=== PATIENT | male | born 1950 | race Caucasian/White ===

== ENCOUNTER → 2020-07-17 08:49 | Outpatient (BNVA) | payer MEDICARE, SELFPAY | PROVIDERS: PCP Internal Medicine; Visit Provider Internal Medicine Pulmonary Disease | DX: D86.9 Sarcoidosis, unspecified (principal); G47.33 Obstructive sleep apnea (adult) (pediatric); Z99.89 Dependence on other enabling machines and devices | CPT/HCPCS: 99212 ==

== ENCOUNTER 2020-08-30 08:59 | Outpatient (REF) | payer MEDICARE, SELFPAY ==
[2020-08-30 11:34] LABS: Hematocrit 46.2 % (42-52); Hemoglobin 15.9 g/dl (14.0-18.0); Mean Corpuscular HGB Conc 34.4 g/dl (31.0-36.0); Mean Corpuscular Hemoglobin 31.5 pg (27.0-33.0); Mean Corpuscular Volume 91.5 fL (80-98); Mean Platelet Volume 12.2 fL (9.4-12.4); Platelet Count 192 X10*3/uL (160-400); Red Blood Count 5.05 X10*6/uL (4.60-5.80); Red Cell Distribution Width 12.3 % (11.0-16.0); White Blood Count 10.1 X10*3/uL (4.8-10.8)
[2020-08-30 12:02] LABS: Alanine Aminotransferase 47 U/L (0-40); Albumin Level 4.2 g/dL (3.5-5.0); Alkaline Phosphatase 117 U/L (39-117); Anion Gap 15 (12-20); Aspartate Amino Transferase 46 U/L (5-37); Bilirubin Total 0.7 mg/dL (0.0-1.0); Blood Urea Nitrogen 19 mg/dL (9-16); Calcium 9.1 mg/dL (8.4-10.2); Carbon Dioxide 31 mmol/L (22-29); Chloride 99 mmol/L (96-108); Cholesterol 164 mg/dL; Estimated Glomerular Filt Rate 57; Glucose Fasting 117 mg/dL (60-99); HDL Cholesterol 24 mg/dL; LDL Cholesterol Calculated 72 mg/dl; Sodium 142 mmol/L (135-145); Total Protein 7.5 g/dL (6.5-8.0); Triglycerides 341 mg/dL
== END 2020-08-30 09:00 | disposition home or self-care (01) ==
LOC: HO.HMGCLDS 08:59
PROVIDERS: PCP Internal Medicine; Visit Provider Internal Medicine
DX: I10 Essential (primary) hypertension (principal); K21.9 Gastro-esophageal reflux disease without esophagitis
CPT/HCPCS: 36415; 80053; 80061; 85027

== ENCOUNTER 2020-09-04 09:25 | Outpatient (REF) | payer MEDICARE, SELFPAY ==
[2020-09-04 12:14] LABS: Anion Gap 15 (12-20); Blood Urea Nitrogen 17 mg/dL (9-16); Calcium 9.5 mg/dL (8.4-10.2); Carbon Dioxide 32 mmol/L (22-29); Chloride 99 mmol/L (96-108); Estimated Glomerular Filt Rate 57; Glucose Random 121 mg/dL (60-115); Potassium 3.6 mmol/l (3.3-5.1); Sodium 142 mmol/L (135-145)
== END 2020-09-04 09:26 | disposition home or self-care (01) ==
LOC: HO.HMGCLDS 09:25
PROVIDERS: PCP Internal Medicine; Visit Provider Internal Medicine
DX: I10 Essential (primary) hypertension (principal); R73.01 Impaired fasting glucose; K21.9 Gastro-esophageal reflux disease without esophagitis
CPT/HCPCS: 36415; 80048

== ENCOUNTER → 2021-01-18 08:54 | Outpatient (BNVA) | payer MEDICARE, SELFPAY | PROVIDERS: PCP Internal Medicine; Visit Provider Internal Medicine Pulmonary Disease | DX: D86.9 Sarcoidosis, unspecified (principal); G47.33 Obstructive sleep apnea (adult) (pediatric); Z99.89 Dependence on other enabling machines and devices | CPT/HCPCS: 99212 ==

== ENCOUNTER 2021-03-01 09:12 | Outpatient (REF) | payer MEDICARE, SELFPAY ==
[2021-03-01 10:20] LABS: Hematocrit 46.6 % (42-52); Hemoglobin 15.8 g/dl (14.0-18.0); Mean Corpuscular HGB Conc 33.9 g/dl (31.0-36.0); Mean Corpuscular Hemoglobin 30.6 pg (27.0-33.0); Mean Corpuscular Volume 90.1 fL (80-98); Platelet Count 180 X10*3/uL (160-400); Red Blood Count 5.17 X10*6/uL (4.60-5.80); Red Cell Distribution Width 12.5 % (11.0-16.0); White Blood Count 9.8 X10*3/uL (4.8-10.8)
[2021-03-01 10:46] LABS: Estimated Average Glucose 108 mg/dL; Hemoglobin A1c % 5.4 %
[2021-03-01 10:51] LABS: Alanine Aminotransferase 41 U/L (0-40); Albumin Level 4.1 g/dL (3.5-5.0); Alkaline Phosphatase 108 U/L (39-117); Anion Gap 12 (12-20); Aspartate Amino Transferase 34 U/L (5-37); Bilirubin Total 0.7 mg/dL (0.0-1.0); Blood Urea Nitrogen 16 mg/dL (9-16); Calcium 9.8 mg/dL (8.4-10.2); Carbon Dioxide 32 mmol/L (22-29); Chloride 98 mmol/L (96-108); Cholesterol 159 mg/dL; Estimated Glomerular Filt Rate > 60; Glucose Fasting 119 mg/dL (60-99); HDL Cholesterol 24 mg/dL; LDL Cholesterol Calculated 59 mg/dl; Potassium 3.4 mmol/L (3.3-5.1); Sodium 139 mmol/L (135-145); Total Protein 7.3 g/dL (6.5-8.0); Triglycerides 380 mg/dL
[2021-03-01 11:02] LABS: Prostate Specific Antigen 0.67 ng/mL (<0.05-4.0)
== END 2021-03-01 09:13 | disposition home or self-care (01) ==
LOC: HO.LAB 09:12
PROVIDERS: PCP Internal Medicine; Visit Provider Internal Medicine
DX: Z12.5 Encounter for screening for malignant neoplasm of prostate (principal); E78.5 Hyperlipidemia, unspecified; I10 Essential (primary) hypertension; R73.9 Hyperglycemia, unspecified; N40.0 Benign prostatic hyperplasia without lower urinary tract symptoms
CPT/HCPCS: 36415; 80053; 80061; 83036; 84153; 85027

== ENCOUNTER → 2021-05-29 11:47 | Outpatient (BNVA) | payer MEDICARE, SELFPAY | PROVIDERS: PCP Internal Medicine; Visit Provider Internal Medicine Pulmonary Disease | DX: G47.33 Obstructive sleep apnea (adult) (pediatric) (principal); J40 Bronchitis, not specified as acute or chronic; D86.9 Sarcoidosis, unspecified; Z99.89 Dependence on other enabling machines and devices | CPT/HCPCS: 99212 ==

== ENCOUNTER → 2021-07-12 10:24 | Outpatient (BNVA) | payer MEDICARE, SELFPAY | PROVIDERS: PCP Internal Medicine; Visit Provider Internal Medicine Pulmonary Disease | DX: D86.9 Sarcoidosis, unspecified (principal); G47.33 Obstructive sleep apnea (adult) (pediatric); R05.9 Cough, unspecified; Z99.89 Dependence on other enabling machines and devices | CPT/HCPCS: 99212 ==

== ENCOUNTER → 2021-09-10 13:29 | Outpatient (BNVA) | payer MEDICARE, SELFPAY | PROVIDERS: PCP Internal Medicine; Visit Provider Internal Medicine Pulmonary Disease | DX: G47.33 Obstructive sleep apnea (adult) (pediatric) (principal); D86.9 Sarcoidosis, unspecified; R05.9 Cough, unspecified; Z99.89 Dependence on other enabling machines and devices | CPT/HCPCS: 99212 ==

== ENCOUNTER 2022-02-27 09:44 | Outpatient (REF) | payer MEDICARE, SELFPAY ==
[2022-02-27 10:01] LABS: MANUAL DIFF FLAG NO
[2022-02-27 10:43] LABS: Basophils Absolute Auto 0.1 X10*3/uL (0.0-0.2); Basophils Percent Auto 0.7 % (0-2); Eosinophils Absolute Auto 0.8 X10*3/uL (0.0-0.4); Eosinophils Percent Auto 8.9 % (0-4); Hematocrit 45.8 % (42.0-52.0); Hemoglobin 15.9 g/dl (14.0-18.0); Imm Gran Abs Auto 0.03 X10*3/uL (0.00-0.03); Imm Gran Pct Auto 0.3 % (0.0-0.4); Lymphocytes Absolute Auto 2.4 X10*3/uL (1.2-4.9); Lymphocytes Percent Auto 27.5 % (20-40); Mean Corpuscular HGB Conc 34.7 g/dl (31.0-36.0); Mean Corpuscular Hemoglobin 31.2 pg (27.0-33.0); Mean Platelet Volume 11.6 fL (9.4-12.4); Monocytes Absolute Auto 0.6 X10*3/uL (0.1-1.2); Monocytes Percent Auto 7.2 % (2-11); Neutrophils Absolute Auto 4.9 x10*3/uL (2.0-8.3); Neutrophils Percent Auto 55.4 % (45-73); Platelet Count 172 X10*3/uL (160-400); Red Blood Count 5.09 X10*6/uL (4.60-5.80); Red Cell Distribution Width 12.5 % (11.0-16.0); White Blood Count 8.8 X10*3/uL (4.8-10.8)
[2022-02-27 10:56] LABS: Estimated Average Glucose 105 mg/dL; Hemoglobin A1c % 5.3 %
[2022-02-27 11:17] LABS: Alanine Aminotransferase 39 U/L (0-40); Albumin Level 4.2 g/dL (3.5-5.0); Alkaline Phosphatase 92 U/L (39-117); Anion Gap 12 (12-20); Aspartate Amino Transferase 32 U/L (5-37); Bilirubin Total 0.6 mg/dL (0.0-1.0); Blood Urea Nitrogen 18 mg/dL (9-16); Calcium 9.2 mg/dL (8.4-10.2); Carbon Dioxide 31 mmol/L (22-29); Chloride 101 mmol/L (96-108); Cholesterol 164 mg/dL; Estimated Glomerular Filt Rate > 60; Glucose Fasting 102 mg/dL (60-99); HDL Cholesterol 24 mg/dL; Potassium 3.3 mmol/L (3.3-5.1); Sodium 141 mmol/L (135-145); Total Protein 7.5 g/dL (6.5-8.0); Triglycerides 451 mg/dL
[2022-02-27 11:34] LABS: PSA,Total (Free>4and<10) 0.75 ng/mL (0.00-4.00)
== END 2022-02-27 09:45 | disposition home or self-care (01) ==
LOC: HO.LAB 09:44
PROVIDERS: PCP Internal Medicine; Visit Provider Internal Medicine
DX: Z00.00 Encounter for general adult medical examination without abnormal findings (principal); Z12.5 Encounter for screening for malignant neoplasm of prostate; E78.5 Hyperlipidemia, unspecified; I10 Essential (primary) hypertension; R73.9 Hyperglycemia, unspecified
CPT/HCPCS: 36415; 80053; 80061; 83036; 84153; 85025

== ENCOUNTER → 2022-06-09 15:00 | Outpatient (BNVA) | payer MEDICARE, SELFPAY | PROVIDERS: PCP Internal Medicine; Visit Provider Internal Medicine Pulmonary Disease | DX: D86.9 Sarcoidosis, unspecified (principal); G47.33 Obstructive sleep apnea (adult) (pediatric); R05.9 Cough, unspecified; Z99.89 Dependence on other enabling machines and devices | CPT/HCPCS: 99212 ==

== ENCOUNTER → 2022-09-11 08:55 | Outpatient (BNVA) | payer MEDICARE, SELFPAY | PROVIDERS: PCP Internal Medicine; Visit Provider Nurse Practitioner Family | DX: N40.1 Benign prostatic hyperplasia with lower urinary tract symptoms (principal); R35.1 Nocturia; R35.0 Frequency of micturition | CPT/HCPCS: 51798; 99202 ==

== ENCOUNTER 2022-09-25 07:16 | Outpatient (REF) | payer MEDICARE, SELFPAY ==
[2022-09-25 08:07] LABS: Estimated Average Glucose 108 mg/dL; Hemoglobin A1C 157.5486 umol/L; Hemoglobin A1c % 5.4 %
[2022-09-25 08:25] LABS: Alanine Aminotransferase 59 U/L (0-40); Albumin Level 4.1 g/dL (3.5-5.0); Alkaline Phosphatase 89 U/L (39-117); Anion Gap 16 (12-20); Aspartate Amino Transferase 50 U/L (5-37); Bilirubin Total 1.1 mg/dL (0.0-1.0); Blood Urea Nitrogen 19 mg/dL (9-16); Calcium 9.7 mg/dL (8.4-10.2); Carbon Dioxide 32 mmol/L (22-29); Chloride 100 mmol/L (96-108); Cholesterol 181 mg/dL; Estimated Glomerular Filt Rate 53; Glucose Fasting 113 mg/dL (60-99); HDL Cholesterol 26 mg/dL; LDL Cholesterol Calculated 91 mg/dl; Potassium 3.5 mmol/L (3.3-5.1); Sodium 144 mmol/L (135-145); Total Protein 7.3 g/dL (6.5-8.0); Triglycerides 322 mg/dL
== END 2022-09-25 07:17 | disposition home or self-care (01) ==
LOC: HO.LAB 07:16
PROVIDERS: PCP Internal Medicine; Visit Provider Internal Medicine
DX: I10 Essential (primary) hypertension (principal); J44.9 Chronic obstructive pulmonary disease, unspecified; R73.9 Hyperglycemia, unspecified; E78.5 Hyperlipidemia, unspecified
CPT/HCPCS: 36415; 80053; 80061; 83036

== ENCOUNTER 2022-10-30 16:27 | Outpatient (REF) | payer MEDICARE, SELFPAY ==
--- NOTE | ~2022-10-30 | US_ITS ---
EXAMINATION: US RETROPERITONEAL COMPLETE (RENAL) CLINICAL INFORMATION: Benign prostatic hyperplasia with lower urinary tract symptoms. COMPARISON: US pelvis limited (bladder) 03/25/2018. TECHNIQUE: Real-time imaging of the kidneys and bladder. FINDINGS: RIGHT KIDNEY: 12.7 x 4.7 x 5.1 cm (SAG x AP x TRV). The kidney is normal in size, contour, and echogenicity. Renal cortical thickness is normal. No renal calculi or hydronephrosis. At the interpolar aspect, a 2.8 x 2.0 x 3.3 cm minimally hypoechoic cyst is seen. This shows sharp margins, increased through sound transmission and no associated color Doppler flow. LEFT KIDNEY: 10.4 x 5.7 x 4.1 cm (SAG x AP x TRV). The kidney is normal in size, contour, and echogenicity. Renal cortical thickness is normal. No calculi or focal parenchymal lesions. No hydronephrosis. There are scattered hyperechoic foci which do not conform ultrasound criteria for calculi. BLADDER: Well distended and normal. Bilateral ureteral jets are demonstrated. Prevoid bladder volume is 408 mL. Postvoid bladder volume is 473 mL. ADDITIONAL FINDINGS: Prostate dimensions are 4.0 x 3.8 x 4.0 cm (volume 31.3 mL). US/US retroperitoneal comp IMPRESSION: 1. A mildly complex right renal cyst is seen, with dimensions as detailed. If relevant to patient management, this can be further evaluated with contrast-enhanced CT. 2. There is an increased postvoid residual volume. 3. There is mild prostatomegaly.
== END 2022-10-30 16:28 | disposition home or self-care (01) ==
LOC: HO.US 16:27
PROVIDERS: PCP Internal Medicine; Visit Provider Nurse Practitioner Family
DX: N40.1 Benign prostatic hyperplasia with lower urinary tract symptoms (principal)
CPT/HCPCS: 76770

== ENCOUNTER → 2022-11-05 13:44 | Outpatient (BNVA) | payer MEDICARE, SELFPAY | PROVIDERS: PCP Internal Medicine; Visit Provider Nurse Practitioner Family | DX: R33.9 Retention of urine, unspecified (principal); R35.1 Nocturia; R35.0 Frequency of micturition | CPT/HCPCS: 51798; 99212 ==

== ENCOUNTER → 2022-11-06 14:15 | Outpatient (BNVA) | payer MEDICARE, SELFPAY | PROVIDERS: PCP Internal Medicine; Visit Provider Internal Medicine Pulmonary Disease | DX: D86.9 Sarcoidosis, unspecified (principal); G47.33 Obstructive sleep apnea (adult) (pediatric); Z99.89 Dependence on other enabling machines and devices | CPT/HCPCS: 99212 ==

== ENCOUNTER → 2022-12-18 14:31 | Outpatient (BNVA) | payer MEDICARE, SELFPAY | PROVIDERS: PCP Internal Medicine; Visit Provider Urology | DX: N40.1 Benign prostatic hyperplasia with lower urinary tract symptoms (principal); N13.8 Other obstructive and reflux uropathy; R33.9 Retention of urine, unspecified; R35.0 Frequency of micturition; R35.1 Nocturia; Z79.82 Long term (current) use of aspirin; Z79.899 Other long term (current) drug therapy | CPT/HCPCS: 51798; 52000; 99212 ==

== ENCOUNTER 2023-02-18 11:18 | Outpatient (REF) | payer MEDICARE, SELFPAY ==
--- NOTE | ~2023-02-18 | XR_ITS ---
EXAMINATION: XR CHEST CLINICAL INFORMATION: COPD COMPARISON: 12/13/2019 TECHNIQUE: 2 views of the chest were obtained. FINDINGS: Mild prominence of pulmonary yumi similar. No significant abnormality is noted involving the heart, lungs, mediastinum, bony thorax or soft tissues. XR/XR chest 2V IMPRESSION: No active chest disease.
== END 2023-02-18 11:19 | disposition home or self-care (01) ==
LOC: HO.XRAY 11:18
PROVIDERS: PCP Internal Medicine; Visit Provider Internal Medicine Pulmonary Disease
DX: J44.9 Chronic obstructive pulmonary disease, unspecified (principal)
CPT/HCPCS: 71046

== ENCOUNTER 2023-02-20 10:49 | Outpatient (AMB) | payer MEDICARE, SELFPAY ==
--- NOTE | 2023-02-20 11:08 | A.OFFVIS_ITS ---
Intake Vital Signs 02/20/23 11:10 Height 5 ft 11 in Weight 217 lb 2.485 oz BMI 30.3 BP 114/70 Blood Pressure Location Lt brachial Position Sitting Pulse Source Pulse Oximeter Pulse Oximetry (%) 96 Oxygen Delivery Method Room Air Intake Visit Reasons: Sick visit Intake Note: Pt was last seen on 11/06/22 for sarcoidosis and te where he was advised to stop using his CPAP until urinary issues were resolved. Pt reports still not using the CPAP machine. He reports a persistent dry cough, slight chest pain, difficulty breathing, and trouble eating. Allergies Sulfa (Sulfonamide Antibiotics) [SULFA (SULFONAMIDE ANTIBIOTICS)] Allergy (Unknown, Verified 02/20/23 11:16) does not remember sulfacetamide Allergy (Unknown, Verified 02/20/23 11:16) Unknown HPI Sick visit HPI Details 72-year-old gentleman, lifetime nonsmoker, with no significant industrial exposures followed for GERD, sarcoidosis diagnosed based on EBUS in October of 2019, and TE.? Patient has been using his air duo and albuterol MDI.? He recently was not able to use his CPAP secondary to urinary bladder issues that he is being followed for by his urologist.? Today he complains of significant allergic rhinitis symptoms. His cough did get better on a course of Levaquin, however now his getting more cough again secondary to postnasal drip. [facility] Medical History Annual physical exam BPH (benign prostatic hyperplasia) Bronchitis CAD (coronary artery disease) COPD (chronic obstructive pulmonary disease) GERD (gastroesophageal reflux disease) HTN (hypertension) Hyperglycemia Hyperlipidemia Impaired fasting glucose Lumbago Obesity Surgical History No pertinent past surgical history Family History Father Alcoholism Mother CHF (congestive heart failure) Brother No problems noted. Sister No problems noted. Sister No problems noted. Sister No problems noted. Sister No problems noted. Social History Housing: House Patient Tobacco Use Status: Never used Tobacco e-Cigarette/Vaping Use: Never Used Current occupational status: retired Cognitive needs: No Hearing needs: No Vision needs: Yes Review of Systems Const Denies daytime sleepiness, Denies excessive sweating, Denies fatigue, Denies fever(s), Denies lethargy, Denies malaise, Denies night sweats, Denies snoring and Denies weight loss Eyes Denies blurry vision and Denies itchy eyes ENT Reports nasal congestion, Reports post nasal drip, Denies sinus pain, Denies sinus pressure and Denies other ( Thrush) Card Denies chest pain, Denies pedal edema, Denies dyspnea, Denies orthopnea and Denies paroxysmal nocturnal dyspnea Resp Reports cough, Denies hemoptysis, Denies excessive phlegm production, Denies dyspnea, Denies snoring and Denies wheezing GI Denies abdominal pain and Denies heartburn Musc Denies myalgias, Denies arthralgias and Denies joint swelling Skin/Breast Denies rash Neuro Denies memory loss and Denies seizure-like activity Psych Denies abnormal sleep pattern, Denies anxiety and Denies memory loss Endo Denies excessive sweating, Denies fatigue and Denies heat intolerance Ethan/Lymph Denies easy bruising Aller/Immun Denies itchy eyes, Denies seasonal rhinorrhea and Denies wheezing Physical Exam Vital Signs: Last Vital Signs BP 114/70 02/20/23 11:10 Pulse Ox 96 02/20/23 11:10 Oxygen Delivery Method Room Air 02/20/23 11:10 BMI result Body Mass Index 30.3 Const General: no acute distress and alert Nutritional Appearance: not obese Orientation/consciousness: Other orientation findings ( oriented) HEENT Head: Yes atraumatic Eyes General: appearance normal, both eyes and all related structures Sclerae: sclerae normal EOM: EOMs intact bilaterally Neck Neck: Yes supple Lymphatic: no lymphadenopathy noted Resp Effort & Inspection: normal respiratory effort and no use of accessory muscles Auscultation: clear to auscultation bilaterally Cardio Rate: regular rate Rhythm: regular rhythm Heart sounds: no gallops, no murmurs and no rubs Skin General skin exam: other ( warm) Extrem General: No clubbing, No cyanosis and No edema Assessment & Plan Assessment & Plan (1) Sarcoidosis: Code(s): D86.9 - Sarcoidosis, unspecified Plan: Based on controlled on air duo and albuterol MDI. Continue current regimen. (2) Allergic rhinitis: Code(s): J30.9 - Allergic rhinitis, unspecified Plan: Now with significant allergic rhinitis. Will start on nasal ipratropium and extend antibiotic regimen for the next 2 weeks. (3) TE on CPAP: Code(s): G47.33 - Obstructive sleep apnea (adult) (pediatric); Z99.89 - Dependence on other enabling machines and devices Plan: Well controlled on CPAP therapy on patient is able to use his CPAP mask. Continue current CPAP therapy. Medications: New amoxicillin-pot clavulanate 875-125 mg 1 tab PO BID 14 days 28 tabs 0RF ipratropium bromide administer into each nostril 2 sprays intranasal TID 30 days 15 mL 1RF Discontinued levofloxacin Discontinued Reason: Doctor's Order 750 mg PO DAILY 7 tabs 0RF Coding Level of Care Code Est Pt Level 4 (83512) Diagnoses Sarcoidosis D86.9 Allergic rhinitis J30.9 TE on CPAP G47.33; Z99.89
[2023-02-20 11:10] VITALS: BP 114/70; O2SAT 96; BMI 30.3
== END 2023-02-20 11:29 | disposition home or self-care (01) ==
PROVIDERS: PCP Internal Medicine; Visit Provider Internal Medicine Pulmonary Disease
DX: D86.9 Sarcoidosis, unspecified (principal); J30.9 Allergic rhinitis, unspecified; G47.33 Obstructive sleep apnea (adult) (pediatric); Z99.89 Dependence on other enabling machines and devices
CPT/HCPCS: 99214

== ENCOUNTER → 2023-02-20 10:49 | Outpatient (BNVA) | payer MEDICARE, SELFPAY | PROVIDERS: PCP Internal Medicine; Visit Provider Internal Medicine Pulmonary Disease | DX: D86.9 Sarcoidosis, unspecified (principal); J30.9 Allergic rhinitis, unspecified; G47.33 Obstructive sleep apnea (adult) (pediatric); Z99.89 Dependence on other enabling machines and devices | CPT/HCPCS: 99212 ==

== ENCOUNTER 2023-03-03 10:27 | Outpatient (AMB) | payer MEDICARE, SELFPAY ==
--- NOTE | 2023-03-03 10:51 | MHC.PC.OV ---
Vital Signs 03/03/23 10:52 Height 5 ft 11 in Weight 215 lb BMI 30.0 BP 124/78 Blood Pressure Location Lt brachial Position Sitting Pulse 90 Pulse Source Pulse Oximeter Pulse Oximetry (%) 98 Oxygen Delivery Method Room Air Intake Visit Reasons: Annual PE Intake Note: Pt is here today for PE. Allergies Sulfa (Sulfonamide Antibiotics) [SULFA (SULFONAMIDE ANTIBIOTICS)] Allergy (Unknown, Verified 03/03/23 10:56) does not remember sulfacetamide Allergy (Unknown, Verified 03/03/23 10:56) Unknown Medication List - Last Reconciled 03/03/23 by Jackeline Garcia MD albuterol sulfate 90 mcg/actuation 2 puffs PO QID alfuzosin ER 10 mg PO DAILY amlodipine 10 mg PO DAILY aspirin 81 mg PO DAILY atenolol 50 mg PO DAILY bethanechol chloride 50 mg PO BID famotidine 20 mg PO DAILY fenofibrate 160 mg PO DAILY finasteride 5 mg PO DAILY fluticasone propion-salmeterol 113-14 mcg/actuation (AirDuo RespiClick) 1 inh inhalation BID 30 days hydrochlorothiazide 50 mg PO DAILY ipratropium bromide 2 sprays intranasal TID 30 days omeprazole 40 mg PO BID 30 days potassium chloride ER 10 mEq PO BID Tobacco use date assessed: 03/03/23 Fall risk assessment: No Falls in past year Last assessed Fall Risk: 03/03/23 Dental Screening Dental Screen Date: 03/03/23 Did you have a dental visit in the last 12 months?: No Did you have a dental problem in the last 6 months where you did not have access to dental care?: No Was dental information given to patient?: Patient declined HPI Annual PE HPI Details Pt presents for PE. HTN stable on meds. [facility] Medical History (Updated 03/03/23 @ 11:21 by Jackeline Garcia MD) Annual physical exam BPH (benign prostatic hyperplasia) Bronchitis CAD (coronary artery disease) COPD (chronic obstructive pulmonary disease) GERD (gastroesophageal reflux disease) HTN (hypertension) Hyperglycemia Hyperlipidemia Impaired fasting glucose Lumbago Obesity Surgical History No pertinent past surgical history Family History Father Alcoholism Substance use disorder Mother CHF (congestive heart failure) Brother No problems noted. Sister No problems noted. Sister No problems noted. Sister No problems noted. Sister No problems noted. Social History Housing: House Patient Tobacco Use Status: Never used Tobacco e-Cigarette/Vaping Use: Never Used Current occupational status: retired Cognitive needs: No Hearing needs: No Vision needs: Yes Questionnaire PHQ-9 Over the last 2 weeks, how often have you been bothered by any of the following problems? 1. Little interest or pleasure in doing things: not at all 2. Feeling down, depressed, or hopeless: not at all 3. Trouble falling or staying asleep, or sleeping too much: nearly every day 4. Feeling tired or having little energy: more than half the days 5. Poor appetite or overeating: several days 6. Feeling bad about yourself - or that you are a failure or have let yourself or your family down: several days 7. Trouble concentrating on things, such as reading the newspaper or watching television: not at all 8. Moving or speaking so slowly that other people could have noticed. Or the opposite - being so fidgety or restless that you have been moving around a lot more than usual: not at all 9. Thoughts that you would be better off or of hurting yourself in some way: not at all Total score: 7 Depression Screening Interpretation: Negative Source: Developed by Drs. Jaspal Calvillo, Aurora Pollard, Bassam Bailey and colleagues, with an educational keny from [employer]. Thrive Questionnaire Date Thrive assessed: 03/03/23 I am a: Patient What is your living situation today?: I have a steady place to live Within the past 12 months, did the food you bought not last and you didn't have the money to get more?: Never true Within the past 12 months, did you worry whether your food would run out before you got money to buy more?: Never true Do you have trouble paying for medicines?: No Do you have trouble getting transportation to medical appointments?: No Do you have trouble paying your heating and electricity bill?: No Do you have trouble taking care of your child, family member or friend?: No Do you have trouble with day-to-day activities such as bathing, preparing meals, shopping, managing finances, etc.?: No Are you currently unemployed and looking for a job?: No Are you interested in more education?: No Please select the resources that you would like help with: None Currently or been in a relationship where the following occur: no concerns reported NATALIIA-7 AMB Questionnaire NATALIIA-7 Date NATALIIA - 7 assessed: 03/03/23 Feeling nervous, anxious, or on edge: 0 = Not at all Not being able to stop or control worryin = Several days Worrying too much about different things: 0 = Not at all Trouble relaxin = Several days Being so restless that it is hard to sit still: 1 = Several days Becoming easily annoyed or irritable: 1 = Several days Feeling afraid as if something awful might happen: 0 = Not at all Total NATALIIA-7 score (0-4 normal; 5-9 mild; 10-14 moderate; 15-21 severe): 4 Source: Developed by Drs. Jaspal Calvillo, Aurora Pollard, Bassam Bailey and colleagues, with an educational keny from [employer]. Review of Systems Const All systems reviewed & are unremarkable except as noted in HPI and below Reports no additional complaints Eyes Reports no additional complaints ENT Reports no additional complaints Card Reports no additional complaints Resp Reports no additional complaints GI Reports no additional complaints Reports no additional complaints Physical exam (Primary Care) Vital Signs: Last Vital Signs Pulse 90 03/03/23 10:52 BP 124/78 03/03/23 10:52 Pulse Ox 98 03/03/23 10:52 Oxygen Delivery Method Room Air 03/03/23 10:52 BMI result Body Mass Index 30.0 Tobacco/Smoking Status: Tobacco use Status Tobacco use date assessed 03/03/23 03/03/23 11:02 Patient Tobacco Use Status Never used Tobacco 03/03/23 10:52 e-Cigarette/Vaping Use Never Used 03/03/23 10:52 PHQ-9: PHQ-9 Score PHQ-9: Total score 7 03/03/23 11:10 Depression Screening Interpretation: Negative Thrive Assessment: Date of Thrive Assessment Date Thrive assessed 03/03/23 03/03/23 11:02 Currently or been in a relationship where the following occur: no concerns reported Const General: no acute distress HENMT Head: Yes normal to inspection Ears: hearing grossly normal bilaterally Face and sinus: Yes normal facial exam Mouth: Normal oral and palatal mucosa present Throat: Yes posterior oropharynx normal Eyes General: appearance normal, both eyes and all related structures Neck Neck: Yes no lymphadenopathy and Yes supple Resp Effort & Inspection: normal respiratory effort Auscultation: clear to auscultation bilaterally Cardio Rhythm: regular rhythm Heart sounds: S1 normal heart sound present and S2 normal heart sound present GI Inspection: Yes normal to inspection Palpation (GI): Soft to palpation Percussion: Yes normal to percussion Auscultation: normal bowel sounds Extrem General: Yes no clubbing, cyanosis or edema Assessment and Plan Assessment & Plan (1) COPD (chronic obstructive pulmonary disease): Code(s): J44.9 - Chronic obstructive pulmonary disease, unspecified Plan: Continue inhaler (2) Hyperlipidemia: Code(s): E78.5 - Hyperlipidemia, unspecified Plan: Continue fenofibrate (3) Hyperglycemia: Code(s): R73.9 - Hyperglycemia, unspecified Plan: ADA diet regular exercise weight loss discussed with the patient check A1c today (4) Colonoscopy refused: Comment: 03/01 Code(s): Z53.20 - Procedure and treatment not carried out because of patient's decision for unspecified reasons Plan: Cologuard will be sent (5) Benign prostatic hyperplasia with lower urinary tract symptoms: Code(s): N40.1 - Benign prostatic hyperplasia with lower urinary tract symptoms Plan: Continue current treatment and follow-up with Urology (6) Annual physical exam: Code(s): Z00.00 - Encounter for general adult medical examination without abnormal findings Plan: Well-balanced diet regular exercise weight loss discussed with the patient. he will return in 6 months with a fasting labs before (7) HTN (hypertension): Code(s): I10 - Essential (primary) hypertension (8) AMRIK on CPAP: Code(s): G47.33 - Obstructive sleep apnea (adult) (pediatric); Z99.89 - Dependence on other enabling machines and devices Plan: Continue CPAP Orders: Orders Comprehensive [place]. Panel Fast Today E78.5 - Hyperlipidemia, unspecified, J44.9 - Chronic obstructive pulmonary disease, unspecified, R73.9 - Hyperglycemia, unspecified Hemoglobin A1c Today E78.5 - Hyperlipidemia, unspecified, J44.9 - Chronic obstructive pulmonary disease, unspecified, R73.9 - Hyperglycemia, unspecified Lipid Panel Today E78.5 - Hyperlipidemia, unspecified, J44.9 - Chronic obstructive pulmonary disease, unspecified, R73.9 - Hyperglycemia, unspecified Complete Blood Count Auto Diff Today E78.5 - Hyperlipidemia, unspecified, J44.9 - Chronic obstructive pulmonary disease, unspecified, R73.9 - Hyperglycemia, unspecified Comprehensive [place]. Panel Fast 6 Months E78.5 - Hyperlipidemia, unspecified, I10 - Essential (primary) hypertension, R73.9 - Hyperglycemia, unspecified Complete Blood Count Auto Diff 6 Months E78.5 - Hyperlipidemia, unspecified, I10 - Essential (primary) hypertension, R73.9 - Hyperglycemia, unspecified Hemoglobin A1c 6 Months E78.5 - Hyperlipidemia, unspecified, I10 - Essential (primary) hypertension, R73.9 - Hyperglycemia, unspecified Lipid Panel 6 Months E78.5 - Hyperlipidemia, unspecified, I10 - Essential (primary) hypertension, R73.9 - Hyperglycemia, unspecified Microalbumin, Random (w Creat) 6 Months E78.5 - Hyperlipidemia, unspecified, I10 - Essential (primary) hypertension, R73.9 - Hyperglycemia, unspecified Referrals Cologuard Test Z12.11 - Encounter for screening for malignant neoplasm of colon, Z12.12 - Encounter for screening for malignant neoplasm of rectum Medications: Discontinued amoxicillin-pot clavulanate 875-125 mg Discontinued Reason: Doctor's Order 1 tab PO BID 14 days 28 tabs 0RF Coding Level of Care Code Est Pt Prev Care >65y(35538) Diagnoses COPD (chronic obstructive pulmonary disease) J44.9 Hyperlipidemia E78.5 Hyperglycemia R73.9 Colonoscopy refused Z53.20 Benign prostatic hyperplasia with lower urinary tract symptoms N40.1 Annual physical exam Z00.00 HTN (hypertension) I10 AMRIK on CPAP G47.33; Z99.89
[2023-03-03 10:52] VITALS: BP 124/78; PULSE 90; O2SAT 98
== END 2023-03-03 11:27 | disposition home or self-care (01) ==
PROVIDERS: Visit Provider Internal Medicine
DX: Z00.00 Encounter for general adult medical examination without abnormal findings (principal); I10 Essential (primary) hypertension; J44.9 Chronic obstructive pulmonary disease, unspecified; E78.5 Hyperlipidemia, unspecified; R73.9 Hyperglycemia, unspecified; Z53.20 Procedure and treatment not carried out because of patient's decision for unspecified reasons; N40.1 Benign prostatic hyperplasia with lower urinary tract symptoms; G47.33 Obstructive sleep apnea (adult) (pediatric); Z99.89 Dependence on other enabling machines and devices
CPT/HCPCS: 99397

== ENCOUNTER 2023-03-03 11:20 | Outpatient (REF) | payer MEDICARE, SELFPAY ==
[2023-03-03 12:54] LABS: MANUAL DIFF FLAG NO
[2023-03-03 13:34] LABS: Basophils Absolute Auto 0.1 X10*3/uL (0.0-0.2); Basophils Percent Auto 0.9 % (0-2); Eosinophils Absolute Auto 0.7 X10*3/uL (0.0-0.4); Eosinophils Percent Auto 9.3 % (0-4); Hematocrit 47.7 % (42.0-52.0); Hemoglobin 16.1 g/dl (14.0-18.0); Imm Gran Abs Auto 0.04 X10*3/uL (0.00-0.03); Imm Gran Pct Auto 0.6 % (0.0-0.4); Lymphocytes Absolute Auto 1.6 X10*3/uL (1.2-4.9); Lymphocytes Percent Auto 23.4 % (20-40); Mean Corpuscular HGB Conc 33.8 g/dl (31.0-36.0); Mean Corpuscular Volume 91.7 fL (80.0-98.0); Mean Platelet Volume 11.8 fL (9.4-12.4); Monocytes Absolute Auto 0.4 X10*3/uL (0.1-1.2); Monocytes Percent Auto 6.3 % (2-11); Neutrophils Absolute Auto 4.2 x10*3/uL (2.0-8.3); Neutrophils Percent Auto 59.5 % (45-73); Platelet Count 228 X10*3/uL (160-400); Red Cell Distribution Width 12.3 % (11.0-16.0)
[2023-03-03 13:42] LABS: Estimated Average Glucose 97 mg/dL
[2023-03-03 13:59] LABS: Alanine Aminotransferase 42 U/L (0-40); Alkaline Phosphatase 72 U/L (39-117); Anion Gap 9 (12-20); Aspartate Amino Transferase 48 U/L (5-37); Bilirubin Total 0.6 mg/dL (0.0-1.0); Blood Urea Nitrogen 13 mg/dL (9-16); Calcium 9.9 mg/dL (8.4-10.2); Carbon Dioxide 34 mmol/L (22-29); Chloride 100 mmol/L (96-108); Cholesterol 149 mg/dL; Estimated Glomerular Filt Rate > 60; Glucose Fasting 95 mg/dL (60-99); HDL Cholesterol 31 mg/dL; LDL Cholesterol Calculated 77 mg/dl; Sodium 140 mmol/L (135-145); Total Protein 7.4 g/dL (6.5-8.0); Triglycerides 205 mg/dL
== END 2023-03-03 11:21 | disposition home or self-care (01) ==
LOC: HO.HMGCLDS 11:20
PROVIDERS: PCP Internal Medicine; Visit Provider Internal Medicine
DX: J44.9 Chronic obstructive pulmonary disease, unspecified (principal); R73.9 Hyperglycemia, unspecified; E78.5 Hyperlipidemia, unspecified
CPT/HCPCS: 36415; 80053; 80061; 83036; 85025

== ENCOUNTER 2023-03-16 12:40 | Outpatient (AMB) | payer MEDICARE, SELFPAY ==
[2023-03-16 12:55] VITALS: BP 136/74; PULSE 89; O2SAT 95
--- NOTE | 2023-03-16 12:55 | A.OFFPC_ITS ---
Vital Signs 03/16/23 12:55 Height 5 ft 11 in Weight 215 lb BMI 30.0 BP 136/74 Blood Pressure Location Lt brachial Position Sitting Pulse 89 Pulse Source Pulse Oximeter Pulse Oximetry (%) 95 Oxygen Delivery Method Room Air Intake Visit Reasons: 6m follow up Intake Note: Pt is here today for 6 months follow up visit. Allergies Sulfa (Sulfonamide Antibiotics) [SULFA (SULFONAMIDE ANTIBIOTICS)] Allergy (Unknown, Verified 03/16/23 13:07) does not remember sulfacetamide Allergy (Unknown, Verified 03/16/23 13:07) Unknown Medication List - Last Reconciled 03/16/23 by Jackeline Garcia MD albuterol sulfate 90 mcg/actuation 2 puffs PO QID alfuzosin ER 10 mg PO DAILY amlodipine 10 mg PO DAILY aspirin 81 mg PO DAILY atenolol 50 mg PO DAILY bethanechol chloride 50 mg PO BID famotidine 20 mg PO DAILY fenofibrate 160 mg PO DAILY finasteride 5 mg PO DAILY fluticasone propion-salmeterol 113-14 mcg/actuation (AirDuo RespiClick) 1 inh inhalation BID 30 days hydrochlorothiazide 50 mg PO DAILY ipratropium bromide 2 sprays intranasal TID 30 days omeprazole 40 mg PO BID 30 days potassium chloride ER 10 mEq PO BID Tobacco use date assessed: 03/03/23 Dental Screening Dental Screen Date: 03/16/23 Did you have a dental visit in the last 12 months?: Yes Did you have a dental problem in the last 6 months where you did not have access to dental care?: No Was dental information given to patient?: Patient has dentist HPI HPI Comments History of Present Illness Details Pt presents for f/u hypokalemia. He has been taking 20 mEq of KCl for the last week. Hypertension is controlled on current medications [facility] Medical History Annual physical exam BPH (benign prostatic hyperplasia) Bronchitis CAD (coronary artery disease) COPD (chronic obstructive pulmonary disease) GERD (gastroesophageal reflux disease) HTN (hypertension) Hyperglycemia Hyperlipidemia Impaired fasting glucose Lumbago Obesity Surgical History No pertinent past surgical history Family History Father Alcoholism Substance use disorder Mother CHF (congestive heart failure) Brother No problems noted. Sister No problems noted. Sister No problems noted. Sister No problems noted. Sister No problems noted. Social History Housing: House Patient Tobacco Use Status: Never used Tobacco e-Cigarette/Vaping Use: Never Used Current occupational status: retired Cognitive needs: No Hearing needs: No Vision needs: Yes Questionnaire Thrive Questionnaire Date Thrive assessed: 03/03/23 NATALIIA-7 AMB Questionnaire NATALIIA-7 Date NATALIIA - 7 assessed: 03/03/23 Source: Developed by Drs. Jaspal Calvillo, Aurora Pollard, Bassam Bailey and colleagues, with an educational keny from [employer]. Review of Systems Const All systems reviewed & are unremarkable except as noted in HPI and below Reports no additional complaints Eyes Reports no additional complaints ENT Reports no additional complaints Card Reports no additional complaints GI Reports no additional complaints Physical exam (Primary Care) Vital Signs: Last Vital Signs Pulse 89 03/16/23 12:55 BP 136/74 03/16/23 12:55 Pulse Ox 95 03/16/23 12:55 Oxygen Delivery Method Room Air 03/16/23 12:55 BMI result Body Mass Index 30.0 Tobacco/Smoking Status: Tobacco use Status Tobacco use date assessed 03/03/23 03/16/23 12:55 Patient Tobacco Use Status Never used Tobacco 03/16/23 12:55 e-Cigarette/Vaping Use Never Used 03/16/23 12:55 Thrive Assessment: Date of Thrive Assessment Date Thrive assessed 03/03/23 03/16/23 12:55 Const General: no acute distress Eyes General: appearance normal, both eyes and all related structures Resp Effort & Inspection: normal respiratory effort Auscultation: clear to auscultation bilaterally Cardio Rhythm: regular rhythm Heart sounds: S1 normal heart sound present and S2 normal heart sound present Assessment and Plan Assessment & Plan (1) Dysuria: Code(s): R30.0 - Dysuria Plan: Check UA (2) Hypokalemia: Code(s): E87.6 - Hypokalemia Plan: Check BMP today on 20 mEq of KCl and hydrochlorothiazide 50 mg. Patient will stop both medications tomorrow and start Dyazide 37.5/25 and will have BMP checked in 1 week. Orders: Orders UA w Microscopic Today R30.0 - Dysuria Basic Metabolic Panel 1 Week E87.6 - Hypokalemia Medications: New triamterene-hydrochlorothiazid 37.5-25 mg 1 tab PO DAILY 90 tabs 0RF Discontinued hydrochlorothiazide Discontinued Reason: Doctor's Order 50 mg PO DAILY 90 tabs 3RF potassium chloride ER Discontinued Reason: Doctor's Order 10 mEq PO BID 180 tabs 3RF Coding Level of Care Code Est Pt Level 3 (72990) Diagnoses Dysuria R30.0 Hypokalemia E87.6
== END 2023-03-16 13:37 | disposition home or self-care (01) ==
PROVIDERS: Visit Provider Internal Medicine
DX: R30.0 Dysuria (principal); E87.6 Hypokalemia
CPT/HCPCS: 99213

== ENCOUNTER 2023-09-03 10:19 | Outpatient (AMB) | payer MEDICARE, SELFPAY ==
[2023-09-03 10:19] VITALS: BP 120/80; PULSE 88; O2SAT 94; BMI 30.4
--- NOTE | 2023-09-03 10:19 | A.OFFPC_ITS ---
Vital Signs 09/03/23 10:19 Height 5 ft 11 in Weight 218 lb BMI 30.4 BP 120/80 Blood Pressure Location Lt brachial Position Sitting Pulse 88 Pulse Source Pulse Oximeter Pulse Oximetry (%) 94 Oxygen Delivery Method Room Air Intake Visit Reasons: 6 Month follow up Intake Note: Pt is here today for 6 months follow up visit. Allergies Sulfa (Sulfonamide Antibiotics) [SULFA (SULFONAMIDE ANTIBIOTICS)] Allergy (Unknown, Verified 09/03/23 10:20) does not remember sulfacetamide Allergy (Unknown, Verified 09/03/23 10:20) Unknown Medication List - Last Reconciled 09/03/23 by Jackeline Garcia MD albuterol sulfate 90 mcg/actuation 2 puffs PO QID alfuzosin ER 10 mg PO DAILY amlodipine 10 mg PO DAILY aspirin 81 mg PO DAILY atenolol 50 mg PO DAILY bethanechol chloride 50 mg PO BID famotidine 20 mg PO DAILY fenofibrate 160 mg PO DAILY finasteride 5 mg PO DAILY fluticasone propion-salmeterol 113-14 mcg/actuation (AirDuo RespiClick) 1 inh inhalation BID 30 days ipratropium bromide 2 sprays intranasal TID 30 days omeprazole 40 mg PO BID 30 days triamterene-hydrochlorothiazid 37.5-25 mg 1 tab PO DAILY Tobacco use date assessed: 09/03/23 Fall risk assessment: No Falls in past year Last assessed Fall Risk: 09/03/23 Dental Screening Dental Screen Date: 09/03/23 Did you have a dental visit in the last 12 months?: Yes Did you have a dental problem in the last 6 months where you did not have access to dental care?: No Was dental information given to patient?: Patient has dentist HPI 6 Month follow up HPI Details Patient presents for the follow-up of hypertension hyperlipidemia BPH chronic GERD stable on current medications [facility] Medical History Bronchitis Annual physical exam Hyperlipidemia Hyperglycemia Obesity GERD (gastroesophageal reflux disease) Lumbago COPD (chronic obstructive pulmonary disease) Impaired fasting glucose CAD (coronary artery disease) BPH (benign prostatic hyperplasia) HTN (hypertension) Surgical History No pertinent past surgical history Family History Father Alcoholism Substance use disorder Mother CHF (congestive heart failure) Brother No problems noted. Sister No problems noted. Sister No problems noted. Sister No problems noted. Sister No problems noted. Social History Housing: House Patient Tobacco Use Status: Never used Tobacco e-Cigarette/Vaping Use: Never Used Current occupational status: retired Cognitive needs: No Hearing needs: No Vision needs: Yes Questionnaire Thrive Questionnaire Date Thrive assessed: 03/03/23 AUDIT C Alcohol Use Questionnaire (AUDIT-C) 1. How often do you have a drink containing alcohol?: Never 3. How often do you have six or more drinks on one occasion?: Never Total Score: 0 NATALIIA-7 AMB Questionnaire NATALIIA-7 Date NATALIIA - 7 assessed: 03/03/23 Source: Developed by Drs. Jaspal Calvillo, Aurora Pollard, Bassam Bailey and colleagues, with an educational keny from [employer]. Review of Systems Const All systems reviewed & are unremarkable except as noted in HPI and below Reports no additional complaints Eyes Reports no additional complaints ENT Reports no additional complaints Card Reports no additional complaints Resp Reports no additional complaints GI Reports no additional complaints Reports no additional complaints Physical exam (Primary Care) Vital Signs: Last Vital Signs Pulse 88 09/03/23 10:19 BP 120/80 09/03/23 10:19 Pulse Ox 94 09/03/23 10:19 Oxygen Delivery Method Room Air 09/03/23 10:19 BMI result Body Mass Index 30.4 Tobacco/Smoking Status: Tobacco use Status Tobacco use date assessed 09/03/23 09/03/23 10:23 Patient Tobacco Use Status Never used Tobacco 09/03/23 10:23 e-Cigarette/Vaping Use Never Used 09/03/23 10:23 Thrive Assessment: Date of Thrive Assessment Date Thrive assessed 03/03/23 09/03/23 10:23 Const General: no acute distress Neck Neck: Yes no lymphadenopathy Resp Effort & Inspection: normal respiratory effort Auscultation: clear to auscultation bilaterally Cardio Rhythm: regular rhythm Heart sounds: S1 normal heart sound present and S2 normal heart sound present GI Inspection: Yes normal to inspection Palpation (GI): Soft to palpation Percussion: Yes normal to percussion Auscultation: normal bowel sounds Assessment and Plan Assessment & Plan (1) Hyperlipidemia: Code(s): E78.5 - Hyperlipidemia, unspecified Plan: Continue fenofibrate return for fasting labs including lipid profile (2) Hyperglycemia: Code(s): R73.9 - Hyperglycemia, unspecified Plan: ADA diet increase physical activity discussed with the patient check A1c (3) HTN (hypertension): Code(s): I10 - Essential (primary) hypertension Plan: Continue current medications (4) BPH (benign prostatic hyperplasia): Code(s): N40.0 - Benign prostatic hyperplasia without lower urinary tract symptoms Plan: Continue finasteride Orders: Orders Comprehensive [place]. Panel Fast Today E78.5 - Hyperlipidemia, unspecified, I10 - Essential (primary) hypertension, N40.0 - Benign prostatic hyperplasia without lower urinary tract symptoms, R73.9 - Hyperglycemia, unspecified Complete Blood Count Auto Diff Today E78.5 - Hyperlipidemia, unspecified, I10 - Essential (primary) hypertension, N40.0 - Benign prostatic hyperplasia without lower urinary tract symptoms, R73.9 - Hyperglycemia, unspecified TSH reflex Free T4 Today E78.5 - Hyperlipidemia, unspecified, I10 - Essential (primary) hypertension, N40.0 - Benign prostatic hyperplasia without lower urinary tract symptoms, R73.9 - Hyperglycemia, unspecified PSA,Total (Free>4and<10) Today E78.5 - Hyperlipidemia, unspecified, I10 - Essential (primary) hypertension, N40.0 - Benign prostatic hyperplasia without lower urinary tract symptoms, R73.9 - Hyperglycemia, unspecified Lipid Panel Today E78.5 - Hyperlipidemia, unspecified, I10 - Essential (primary) hypertension, N40.0 - Benign prostatic hyperplasia without lower urinary tract symptoms, R73.9 - Hyperglycemia, unspecified Hemoglobin A1c Today E78.5 - Hyperlipidemia, unspecified, I10 - Essential (primary) hypertension, N40.0 - Benign prostatic hyperplasia without lower urinary tract symptoms, R73.9 - Hyperglycemia, unspecified Medications: Discontinued fluticasone propion-salmeterol 113-14 mcg/actuation (AirDuo RespiClick) Discontinued Reason: Doctor's Order 1 inh inhalation BID 30 days 1 ea 6RF Coding Level of Care Code Est Pt Level 4 (12909) Diagnoses Hyperlipidemia E78.5 Hyperglycemia R73.9 HTN (hypertension) I10 BPH (benign prostatic hyperplasia) N40.0
== END 2023-09-03 15:52 | disposition home or self-care (01) ==
PROVIDERS: PCP Internal Medicine; Visit Provider Internal Medicine
DX: E78.5 Hyperlipidemia, unspecified (principal); R73.9 Hyperglycemia, unspecified; I10 Essential (primary) hypertension; N40.0 Benign prostatic hyperplasia without lower urinary tract symptoms
CPT/HCPCS: 99214

== ENCOUNTER 2023-12-25 09:55 | Outpatient (REF) | payer MEDICARE, SELFPAY ==
[2023-12-25 13:30] LABS: MANUAL DIFF FLAG NO
[2023-12-25 13:45] LABS: Basophils Absolute Auto 0.1 X10*3/uL (0.0-0.2); Basophils Percent Auto 0.9 % (0-2); Eosinophils Absolute Auto 0.7 X10*3/uL (0.0-0.4); Eosinophils Percent Auto 8.5 % (0-4); Hemoglobin 15.4 g/dl (14.0-18.0); Imm Gran Abs Auto 0.03 X10*3/uL (0.00-0.03); Imm Gran Pct Auto 0.4 % (0.0-0.4); Lymphocytes Absolute Auto 1.6 X10*3/uL (1.2-4.9); Lymphocytes Percent Auto 20.3 % (20-40); Mean Corpuscular HGB Conc 34.2 g/dl (31.0-36.0); Mean Corpuscular Hemoglobin 30.9 pg (27.0-33.0); Mean Corpuscular Volume 90.4 fL (80.0-98.0); Mean Platelet Volume 12.3 fL (9.4-12.4); Monocytes Absolute Auto 0.5 X10*3/uL (0.1-1.2); Monocytes Percent Auto 6.4 % (2-11); Neutrophils Percent Auto 63.5 % (45-73); Platelet Count 210 X10*3/uL (160-400); Red Blood Count 4.98 X10*6/uL (4.60-5.80); Red Cell Distribution Width 12.6 % (11.0-16.0); White Blood Count 7.9 X10*3/uL (4.8-10.8)
[2023-12-25 13:46] LABS: Estimated Average Glucose 105 mg/dL; Hemoglobin A1c % 5.3 % (<6.0)
[2023-12-25 13:58] LABS: Alanine Aminotransferase 29 U/L (0-40); Albumin Level 4.2 g/dL (3.5-5.0); Alkaline Phosphatase 61 U/L (39-117); Anion Gap 15 (12-20); Aspartate Amino Transferase 29 U/L (5-37); Bilirubin Total 0.5 mg/dL (0.0-1.0); Blood Urea Nitrogen 23 mg/dL (9-16); Calcium 9.5 mg/dL (8.4-10.2); Carbon Dioxide 29 mmol/L (22-29); Chloride 101 mmol/L (96-108); Cholesterol 175 mg/dL (<200); Estimated Glomerular Filt Rate 46; Glucose Fasting 99 mg/dL (60-99); HDL Cholesterol 30 mg/dL (>40); LDL Cholesterol Calculated 96 mg/dL (<100); Potassium 3.5 mmol/L (3.3-5.1); Sodium 141 mmol/L (135-145); Total Protein 7.8 g/dL (6.5-8.0); Triglycerides 248 mg/dL (<150)
[2023-12-25 14:13] LABS: PSA,Total (Free>4and<10) 1.65 ng/mL (0.00-4.00)
[2023-12-25 14:14] LABS: TSH reflex Free T4 3.98 uIU/mL (0.32-4.0)
== END 2023-12-25 09:56 | disposition home or self-care (01) ==
LOC: HO.HMGCLDS 09:55
PROVIDERS: PCP Internal Medicine; Visit Provider Internal Medicine
DX: E78.5 Hyperlipidemia, unspecified (principal); R73.9 Hyperglycemia, unspecified; I10 Essential (primary) hypertension; N40.0 Benign prostatic hyperplasia without lower urinary tract symptoms; Z12.5 Encounter for screening for malignant neoplasm of prostate
CPT/HCPCS: 36415; 80053; 80061; 83036; 84153; 84443; 85025

== ENCOUNTER 2024-03-02 14:23 | Outpatient (AMB) | payer MEDICARE, SELFPAY ==
[2024-03-02 14:25] VITALS: BP 136/82; PULSE 72; O2SAT 96; BMI 29.7
--- NOTE | 2024-03-02 14:25 | A.OFFVIS_ITS ---
Vital Signs 03/02/24 14:25 Height 5 ft 11 in Weight 213 lb BMI 29.7 BP 136/82 Blood Pressure Location Rt brachial Position Sitting Pulse 72 Pulse Source Doppler Pulse Oximetry (%) 96 Oxygen Delivery Method Room Air Intake Visit Reasons: Cough Allergies Sulfa (Sulfonamide Antibiotics) [SULFA (SULFONAMIDE ANTIBIOTICS)] Allergy (Unknown, Verified 09/03/23 10:20) does not remember sulfacetamide Allergy (Unknown, Verified 09/03/23 10:20) Unknown HPI HPI Cough: Details: 73-year-old gentleman, lifetime nonsmoker, with no significant industrial exposures followed for GERD, sarcoidosis diagnosed based on EBUS in October of 2019, and AMRIK.? Patient has been using his air duo and albuterol MDI.? Over the last 2 months he has developed nonproductive cough. [facility] Medical History Bronchitis Annual physical exam Hyperlipidemia Hyperglycemia Obesity GERD (gastroesophageal reflux disease) Lumbago COPD (chronic obstructive pulmonary disease) Impaired fasting glucose CAD (coronary artery disease) BPH (benign prostatic hyperplasia) HTN (hypertension) Surgical History No pertinent past surgical history Family History Father Alcoholism Substance use disorder Mother CHF (congestive heart failure) Brother No problems noted. Sister No problems noted. Sister No problems noted. Sister No problems noted. Sister No problems noted. Social History Housing: House Patient Tobacco Use Status: Never used Tobacco e-Cigarette/Vaping Use: Never Used Current occupational status: retired Cognitive needs: No Hearing needs: No Vision needs: Yes Review of Systems Const Denies daytime sleepiness, Denies excessive sweating, Denies fatigue, Denies fever(s), Denies lethargy, Denies malaise, Denies night sweats, Denies snoring and Denies weight loss Eyes Denies blurry vision and Denies itchy eyes ENT Denies nasal congestion, Denies post nasal drip, Denies sinus pain, Denies sinus pressure and Denies other ( Thrush) Card Denies chest pain, Denies pedal edema, Denies dyspnea, Denies orthopnea and Denies paroxysmal nocturnal dyspnea Resp Reports cough, Denies hemoptysis, Denies excessive phlegm production, Denies dyspnea, Denies snoring and Denies wheezing GI Denies abdominal pain and Denies heartburn Musc Denies myalgias, Denies arthralgias and Denies joint swelling Skin/Breast Denies rash Neuro Denies memory loss and Denies seizure-like activity Psych Denies abnormal sleep pattern, Denies anxiety and Denies memory loss Endo Denies excessive sweating, Denies fatigue and Denies heat intolerance Ethan/Lymph Denies easy bruising Aller/Immun Denies itchy eyes, Denies seasonal rhinorrhea and Denies wheezing Physical Exam Vital Signs: Last Vital Signs Pulse 72 03/02/24 14:25 BP 136/82 03/02/24 14:25 Pulse Ox 96 03/02/24 14:25 Oxygen Delivery Method Room Air 03/02/24 14:25 BMI result Body Mass Index 29.7 Const General: no acute distress and alert Nutritional Appearance: not obese Orientation/consciousness: Other orientation findings ( oriented) HEENT Head: Yes atraumatic Eyes General: appearance normal, both eyes and all related structures Sclerae: sclerae normal EOM: EOMs intact bilaterally Neck Neck: Yes supple Lymphatic: no lymphadenopathy noted Resp Effort & Inspection: normal respiratory effort and no use of accessory muscles Auscultation: clear to auscultation bilaterally Cardio Rate: regular rate Rhythm: regular rhythm Heart sounds: no gallops, no murmurs and no rubs Skin General skin exam: other ( warm) Extrem General: No clubbing, No cyanosis and No edema Assessment & Plan Assessment & Plan (1) Sarcoidosis: Code(s): D86.9 - Sarcoidosis, unspecified Category: Medical Plan: No recent exacerbations. Continue to monitor clinically. Continue albuterol MDI. (2) AMRIK on CPAP: Code(s): G47.33 - Obstructive sleep apnea (adult) (pediatric); Z99.89 - Dependence on other enabling machines and devices Category: Medical Plan: Continue current CPAP therapy. (3) Cough: Code(s): R05.9 - Cough, unspecified Category: Medical Plan: Empiric treatment with azithromycin and prednisone. Medications: New azithromycin For 250 mg dose pack: take 500 mg today (day 1), then 250 mg for 4 days (days 2-5) PO 6 tabs 0RF prednisone 40 mg (2 x 20 mg) PO DAILY 10 tabs 0RF Coding Level of Care Code Est Pt Level 4 (92108) Diagnoses Sarcoidosis D86.9 AMRIK on CPAP G47.33; Z99.89 Cough R05.9
== END 2024-03-02 14:52 | disposition home or self-care (01) ==
PROVIDERS: PCP Internal Medicine; Visit Provider Internal Medicine Pulmonary Disease
DX: D86.9 Sarcoidosis, unspecified (principal); G47.33 Obstructive sleep apnea (adult) (pediatric); Z99.89 Dependence on other enabling machines and devices; R05.9 Cough, unspecified
CPT/HCPCS: 99214

== ENCOUNTER → 2024-03-02 14:23 | Outpatient (BNVA) | payer MEDICARE, SELFPAY | PROVIDERS: PCP Internal Medicine; Visit Provider Internal Medicine Pulmonary Disease | DX: R05.9 Cough, unspecified (principal); D86.9 Sarcoidosis, unspecified; G47.33 Obstructive sleep apnea (adult) (pediatric); Z99.89 Dependence on other enabling machines and devices | CPT/HCPCS: 99212 ==

== ENCOUNTER 2024-03-09 11:31 | Outpatient (AMB) | payer MEDICARE, SELFPAY ==
--- NOTE | 2024-03-09 11:37 | MHC.PC.OV ---
Vital Signs 03/09/24 11:38 Height 5 ft 11 in Weight 215 lb BMI 30.0 BP 136/78 Blood Pressure Location Rt brachial Position Sitting Pulse 94 Pulse Source Pulse Oximeter Pulse Oximetry (%) 97 Oxygen Delivery Method Room Air Intake Visit Reasons: PE Intake Note: Pt is here today for PE. Pt states that he has been having muscle pain in his upper legs since yesterday. Allergies Sulfa (Sulfonamide Antibiotics) [SULFA (SULFONAMIDE ANTIBIOTICS)] Allergy (Unknown, Verified 03/09/24 11:40) does not remember sulfacetamide Allergy (Unknown, Verified 03/09/24 11:40) Unknown Medication List - Last Reconciled 03/09/24 by Jcakeline Garcia MD albuterol sulfate 90 mcg/actuation 2 puffs PO QID alfuzosin ER 10 mg PO DAILY amlodipine 10 mg PO DAILY aspirin 81 mg PO DAILY atenolol 50 mg PO DAILY bethanechol chloride 50 mg PO BID famotidine 20 mg PO DAILY fenofibrate 160 mg PO DAILY finasteride 5 mg PO DAILY ipratropium bromide 2 sprays intranasal TID 30 days omeprazole 40 mg PO BID 30 days triamterene-hydrochlorothiazid 37.5-25 mg 1 tab PO DAILY Tobacco use date assessed: 03/09/24 Fall risk assessment: No Falls in past year Last assessed Fall Risk: 03/09/24 Dental Screening Dental Screen Date: 03/09/24 Did you have a dental visit in the last 12 months?: Yes Did you have a dental problem in the last 6 months where you did not have access to dental care?: No Was dental information given to patient?: Patient has dentist HPI PE HPI Details Patient presents for physical. He complains of bilateral thighs muscle aches on and off for the last week. He has been taking 20 mg of potassium supplement with 50 mg of hydrochlorothiazide. Patient has stopped taking Crestor. He reports intermittent dry cough was treated with a Z-Kevin and prednisone 2 weeks ago. The cough is worse when patient is lying flat in bed. He denies shortness or breath wheezing sputum production fever chills pleurisy. [facility] Medical History (Updated 03/09/24 @ 12:32 by Jackeline Garcia MD) Bronchitis Annual physical exam Hyperlipidemia Hyperglycemia Obesity GERD (gastroesophageal reflux disease) Lumbago COPD (chronic obstructive pulmonary disease) Impaired fasting glucose CAD (coronary artery disease) BPH (benign prostatic hyperplasia) HTN (hypertension) Surgical History No pertinent past surgical history Family History Father Alcoholism Substance use disorder Mother CHF (congestive heart failure) Brother No problems noted. Sister No problems noted. Sister No problems noted. Sister No problems noted. Sister No problems noted. Social History Housing: House Patient Tobacco Use Status: Never used Tobacco e-Cigarette/Vaping Use: Never Used Current occupational status: retired Cognitive needs: No Hearing needs: No Vision needs: Yes Questionnaire PHQ-9 Over the last 2 weeks, how often have you been bothered by any of the following problems? 1. Little interest or pleasure in doing things: not at all 2. Feeling down, depressed, or hopeless: not at all 3. Trouble falling or staying asleep, or sleeping too much: not at all 4. Feeling tired or having little energy: not at all 5. Poor appetite or overeating: not at all 6. Feeling bad about yourself - or that you are a failure or have let yourself or your family down: not at all 7. Trouble concentrating on things, such as reading the newspaper or watching television: not at all 8. Moving or speaking so slowly that other people could have noticed. Or the opposite - being so fidgety or restless that you have been moving around a lot more than usual: not at all 9. Thoughts that you would be better off or of hurting yourself in some way: not at all Total score: 0 Depression Screening Interpretation: Negative Depression Screening Done: Yes Source: Developed by Drs. Jaspal Calvillo, Aurora Pollard, Bassam Bailey and colleagues, with an educational keny from [employer]. Thrive Questionnaire Date Thrive assessed: 03/09/24 I am a: Patient What is your living situation today?: I have a steady place to live Within the past 12 months, did the food you bought not last and you didn't have the money to get more?: Never true Within the past 12 months, did you worry whether your food would run out before you got money to buy more?: Never true Do you have trouble paying for medicines?: No Do you have trouble getting transportation to medical appointments?: No Do you have trouble paying your heating and electricity bill?: No Do you have trouble taking care of your child, family member or friend?: I choose not to answer this question Do you have trouble with day-to-day activities such as bathing, preparing meals, shopping, managing finances, etc.?: No Are you currently unemployed and looking for a job?: I choose not to answer this question Are you interested in more education?: I choose not to answer this question Please select the resources that you would like help with: Housing/Retirement Currently or been in a relationship where the following occur: I choose not to answer THRIVE Score: 0 AUDIT C Alcohol Use Questionnaire (AUDIT-C) 1. How often do you have a drink containing alcohol?: Never 3. How often do you have six or more drinks on one occasion?: Never Total Score: 0 NATALIIA-7 AMB Questionnaire NATALIIA-7 Date NATALIIA - 7 assessed: 03/09/24 Feeling nervous, anxious, or on edge: 0 = Not at all Not being able to stop or control worryin = Not at all Worrying too much about different things: 0 = Not at all Trouble relaxin = Not at all Being so restless that it is hard to sit still: 0 = Not at all Becoming easily annoyed or irritable: 0 = Not at all Feeling afraid as if something awful might happen: 0 = Not at all Total NATALIIA-7 score (0-4 normal; 5-9 mild; 10-14 moderate; 15-21 severe): 0 Source: Developed by Drs. Jaspal Calvillo, Aurora Pollard, Bassam Bailey and colleagues, with an educational keny from [employer]. Review of Systems Const All systems reviewed & are unremarkable except as noted in HPI and below Eyes Reports no additional complaints ENT Reports no additional complaints Card Reports no additional complaints Resp Reports no additional complaints GI Reports no additional complaints Reports no additional complaints Physical exam (Primary Care) Vital Signs: Last Vital Signs Pulse 94 03/09/24 11:38 BP 136/78 03/09/24 11:38 Pulse Ox 97 03/09/24 11:38 Oxygen Delivery Method Room Air 03/09/24 11:38 BMI result Body Mass Index 30.0 Tobacco/Smoking Status: Tobacco use Status Tobacco use date assessed 03/09/24 03/09/24 11:46 Patient Tobacco Use Status Never used Tobacco 03/09/24 11:46 e-Cigarette/Vaping Use Never Used 03/09/24 11:46 PHQ-9: PHQ-9 Score PHQ-9: Total score 0 03/09/24 11:46 Depression Screening Interpretation: Negative Thrive Assessment: Date of Thrive Assessment Date Thrive assessed 03/09/24 03/09/24 11:46 Currently or been in a relationship where the following occur: I choose not to answer Const General: no acute distress HENMT Head: Yes normal to inspection Mouth: Normal oral and palatal mucosa present Throat: Yes postnasal drainage Eyes General: appearance normal, both eyes and all related structures Neck Neck: Yes no lymphadenopathy and Yes supple Resp Effort & Inspection: normal respiratory effort Auscultation: clear to auscultation bilaterally Cardio Rhythm: regular rhythm Heart sounds: S1 normal heart sound present and S2 normal heart sound present GI Inspection: Yes normal to inspection Palpation (GI): Soft to palpation Percussion: Yes normal to percussion Auscultation: normal bowel sounds Extrem General: Yes no clubbing, cyanosis or edema Assessment and Plan Assessment & Plan (1) HTN (hypertension): Code(s): I10 - Essential (primary) hypertension Plan: Change hydrochlorothiazide to triamterene with hydrochlorothiazide. Check comprehensive panel today. Follow-up in 2 months (2) COPD (chronic obstructive pulmonary disease): Comment: Albuterol prn Code(s): J44.9 - Chronic obstructive pulmonary disease, unspecified Plan: Continue albuterol p.r.n. (3) Colonoscopy refused: Comment: 03/01, 03/02 Code(s): Z53.20 - Procedure and treatment not carried out because of patient's decision for unspecified reasons (4) BPH (benign prostatic hyperplasia): Code(s): N40.0 - Benign prostatic hyperplasia without lower urinary tract symptoms Plan: Continue current medications and follow-up with Urology (5) Annual physical exam: Code(s): Z00.00 - Encounter for general adult medical examination without abnormal findings Plan: Well-balanced diet regular physical activity weight loss discussed with the patient (6) Hyperlipidemia: Comment: Crestor caused myalgia Code(s): E78.5 - Hyperlipidemia, unspecified Plan: Continue fenofibrate (7) AMRIK on CPAP: Code(s): G47.33 - Obstructive sleep apnea (adult) (pediatric); Z99.89 - Dependence on other enabling machines and devices Plan: Continue CPAP (8) Sarcoidosis: Comment: f/u with PULMONOLOGY Code(s): D86.9 - Sarcoidosis, unspecified Orders: Orders Comprehensive Met. Panel Today I10 - Essential (primary) hypertension, J44.9 - Chronic obstructive pulmonary disease, unspecified Medications: New fluticasone propionate 50 mcg/actuation (Flonase Allergy Relief) administer into each nostril 1 spray intranasal DAILY 16 grams 1RF Refilled triamterene-hydrochlorothiazid 37.5-25 mg 1 tab PO DAILY 90 tabs 3RF Coding Level of Care Code Est Pt Prev Care >65y(72712) Diagnoses HTN (hypertension) I10 COPD (chronic obstructive pulmonary disease) J44.9 Colonoscopy refused Z53.20 BPH (benign prostatic hyperplasia) N40.0 Annual physical exam Z00.00 Hyperlipidemia E78.5 AMRIK on CPAP G47.33; Z99.89 Sarcoidosis D86.9
[2024-03-09 11:38] VITALS: BP 136/78; PULSE 94; O2SAT 97
== END 2024-03-09 12:23 | disposition home or self-care (01) ==
PROVIDERS: PCP Internal Medicine; Visit Provider Internal Medicine
DX: I10 Essential (primary) hypertension (principal); J44.9 Chronic obstructive pulmonary disease, unspecified; Z53.20 Procedure and treatment not carried out because of patient's decision for unspecified reasons; N40.0 Benign prostatic hyperplasia without lower urinary tract symptoms; Z00.00 Encounter for general adult medical examination without abnormal findings; E78.5 Hyperlipidemia, unspecified; G47.33 Obstructive sleep apnea (adult) (pediatric); Z99.89 Dependence on other enabling machines and devices; D86.9 Sarcoidosis, unspecified
CPT/HCPCS: 99397

== ENCOUNTER 2024-03-09 12:23 | Outpatient (REF) | payer MEDICARE, SELFPAY ==
[2024-03-09 14:01] LABS: Alanine Aminotransferase 39 U/L (0-40); Albumin Level 4.2 g/dL (3.5-5.0); Alkaline Phosphatase 63 U/L (39-117); Anion Gap 11 (12-20); Aspartate Amino Transferase 34 U/L (5-37); Bilirubin Total 0.5 mg/dL (0.0-1.0); Blood Urea Nitrogen 24 mg/dL (9-16); Calcium 9.6 mg/dL (8.4-10.2); Carbon Dioxide 30 mmol/L (22-29); Chloride 102 mmol/L (96-108); Estimated Glomerular Filt Rate 58; Glucose Random 98 mg/dL (60-115); Potassium 3.7 mmol/L (3.3-5.1); Sodium 139 mmol/L (135-145); Total Protein 7.4 g/dL (6.5-8.0)
== END 2024-03-09 12:24 | disposition home or self-care (01) ==
LOC: HO.HMGCLDS 12:23
PROVIDERS: PCP Internal Medicine; Visit Provider Internal Medicine
DX: I10 Essential (primary) hypertension (principal); J44.9 Chronic obstructive pulmonary disease, unspecified
CPT/HCPCS: 36415; 80053

== ENCOUNTER 2024-03-22 12:22 | Outpatient (AMB) | payer MEDICARE, SELFPAY ==
--- NOTE | 2024-03-22 12:27 | MHC.OFFWIV ---
Intake Vital Signs 03/22/24 12:28 Height 5 ft 11 in Weight 221 lb BMI 30.8 BP 148/70 H Blood Pressure Location Rt brachial Position Sitting Pulse 89 Pulse Source Pulse Oximeter Temp 97.7 F Temp Source Oral Pulse Oximetry (%) 97 Oxygen Delivery Method Room Air Intake Visit Reasons: EP- Rash all over body, started Intake Note: pt c/o rash on body. Spreading. Started Patient Tobacco Use Status: Never used Tobacco Allergies Sulfa (Sulfonamide Antibiotics) [SULFA (SULFONAMIDE ANTIBIOTICS)] Allergy (Unknown, Verified 03/22/24 12:27) does not remember sulfacetamide Allergy (Unknown, Verified 03/22/24 12:27) Unknown Do you need a note to return to daycare/school/sports/work: No HPI EP- Rash all over body, started HPI Details This is a 73 year old male patient who presents to the [facility] clinic today with c/o rash over chest, stomach, and arms. He states this is poison tiffanie, and he got it last week while [place]. He reports severe reactions to poison tiffanie in the past. No rash on genitals or face. No respiratory symptoms. States he has been using hydrocortisone to help with the itching. [facility] Medical History Bronchitis Annual physical exam Hyperlipidemia Hyperglycemia Obesity GERD (gastroesophageal reflux disease) Lumbago COPD (chronic obstructive pulmonary disease) Impaired fasting glucose CAD (coronary artery disease) BPH (benign prostatic hyperplasia) HTN (hypertension) Surgical History No pertinent past surgical history Family History Father Alcoholism Substance use disorder Mother CHF (congestive heart failure) Brother No problems noted. Sister No problems noted. Sister No problems noted. Sister No problems noted. Sister No problems noted. Social History Housing: House Patient Tobacco Use Status: Never used Tobacco e-Cigarette/Vaping Use: Never Used Current occupational status: retired Cognitive needs: No Hearing needs: No Vision needs: Yes Review of Systems Const All systems reviewed & are unremarkable except as noted in HPI and below Physical Exam Vital Signs: Last Vital Signs Temp 97.7 F 03/22/24 12:28 Pulse 89 03/22/24 12:28 BP 148/70 H 03/22/24 12:28 Pulse Ox 97 03/22/24 12:28 Oxygen Delivery Method Room Air 03/22/24 12:28 BMI result Body Mass Index 30.8 Const General: cooperative, healthy appearing and no acute distress HEENT Head: Yes normal to inspection Neck Neck: Yes no lymphadenopathy Resp Effort & Inspection: normal respiratory effort Auscultation: clear to auscultation bilaterally Skin Other: pink, raised rash consistient with contact dermatitis extending across trunk, chest, and b/l arms. Some small areas on legs. No rash on genitals or face. No open areas. Extrem General: Yes capillary refill normal and Yes no clubbing, cyanosis or edema Psych Appearance: grossly normal Mental Status: mental status grossly normal Speech and movement: Normal speech and movement present Assessment & Plan Assessment & Plan (1) Contact dermatitis: Code(s): L25.9 - Unspecified contact dermatitis, unspecified cause Qualifiers: Contact dermatitis type: irritant Contact dermatitis trigger: non-food plants Qualified Code(s): L24.7 - Irritant contact dermatitis due to plants, except food Plan: Will start on a Prednisone taper for extensive contact derm from poison tiffanie. Patient has done well on this in previous years. Reviewed indications, use, possible s/e of this. He can use Benadryl as needed for ongoing itching. If he does not improve with treatment, he should return for further evaluation. He agrees to plan. Medications: New prednisone Take 4 tabs for two days, then take 3 tabs for two days, then take 2 tabs for two days, then take 1 tab for 2 days. 10 mg PO DAILY 20 tabs 0RF Coding Level of Care Code Est Pt Level 4 (57539) Diagnoses Irritant contact dermatitis due to plants, except food L24.7 Contact dermatitis type: irritant Contact dermatitis trigger: non-food plants
[2024-03-22 12:28] VITALS: BP 148/70; PULSE 89; TEMP 36.5; O2SAT 97; BMI 30.8
== END 2024-03-22 12:58 | disposition home or self-care (01) ==
PROVIDERS: PCP Internal Medicine; Visit Provider Nurse Practitioner Family
DX: L24.7 Irritant contact dermatitis due to plants, except food (principal)
CPT/HCPCS: 99214

== ENCOUNTER 2024-04-26 12:30 | Outpatient (AMB) | payer MEDICARE, SELFPAY ==
[2024-04-26 12:35] VITALS: BP 120/78; PULSE 86; O2SAT 97; BMI 30.4
--- NOTE | 2024-04-26 12:35 | A.OFFPC_ITS ---
Vital Signs 04/26/24 12:35 Height 5 ft 11 in Weight 218 lb BMI 30.4 BP 120/78 Blood Pressure Location Lt brachial Position Sitting Pulse 86 Pulse Source Pulse Oximeter Pulse Oximetry (%) 97 Oxygen Delivery Method Room Air Intake Visit Reasons: follow up labs Intake Note: Pt is here today for a follow up visit on labs. Allergies Sulfa (Sulfonamide Antibiotics) [SULFA (SULFONAMIDE ANTIBIOTICS)] Allergy (Unknown, Verified 04/26/24 12:40) does not remember sulfacetamide Allergy (Unknown, Verified 04/26/24 12:40) Unknown Medication List - Last Reconciled 04/26/24 by Jackeline Garcia MD albuterol sulfate 90 mcg/actuation 2 puffs PO QID alfuzosin ER 10 mg PO DAILY amlodipine 10 mg PO DAILY aspirin 81 mg PO DAILY atenolol 50 mg PO DAILY bethanechol chloride 50 mg PO BID famotidine 20 mg PO DAILY fenofibrate 160 mg PO DAILY finasteride 5 mg PO DAILY fluticasone propionate 50 mcg/actuation (Flonase Allergy Relief) 1 spray intranasal DAILY ipratropium bromide 2 sprays intranasal TID 30 days omeprazole 40 mg PO BID 30 days triamterene-hydrochlorothiazid 37.5-25 mg 1 tab PO DAILY Tobacco use date assessed: 03/09/24 Dental Screening Dental Screen Date: 03/09/24 HPI follow up labs HPI Details Patient presents for f/u HTN and hyperlipid, stable on meds. [facility] Medical History Bronchitis Annual physical exam Hyperlipidemia Hyperglycemia Obesity GERD (gastroesophageal reflux disease) Lumbago COPD (chronic obstructive pulmonary disease) Impaired fasting glucose CAD (coronary artery disease) BPH (benign prostatic hyperplasia) HTN (hypertension) Surgical History No pertinent past surgical history Family History Father Alcoholism Substance use disorder Mother CHF (congestive heart failure) Brother No problems noted. Sister No problems noted. Sister No problems noted. Sister No problems noted. Sister No problems noted. Social History Housing: House Patient Tobacco Use Status: Never used Tobacco e-Cigarette/Vaping Use: Never Used Current occupational status: retired Cognitive needs: No Hearing needs: No Vision needs: Yes Questionnaire Thrive Questionnaire Date Thrive assessed: 03/09/24 I am a: Patient What is your living situation today?: I have a steady place to live Within the past 12 months, did the food you bought not last and you didn't have the money to get more?: Never true Within the past 12 months, did you worry whether your food would run out before you got money to buy more?: Never true Do you have trouble paying for medicines?: No Do you have trouble getting transportation to medical appointments?: No Do you have trouble paying your heating and electricity bill?: No Do you have trouble taking care of your child, family member or friend?: I choose not to answer this question Do you have trouble with day-to-day activities such as bathing, preparing meals, shopping, managing finances, etc.?: No Are you currently unemployed and looking for a job?: I choose not to answer this question Are you interested in more education?: I choose not to answer this question Please select the resources that you would like help with: None Currently or been in a relationship where the following occur: I choose not to answer THRIVE Score: 0 AUDIT C Alcohol Use Questionnaire (AUDIT-C) 1. How often do you have a drink containing alcohol?: Never Total Score: 0 NATALIIA-7 AMB Questionnaire NATALIIA-7 Date NATALIIA - 7 assessed: 03/09/24 Feeling nervous, anxious, or on edge: 0 = Not at all Not being able to stop or control worryin = Not at all Worrying too much about different things: 0 = Not at all Trouble relaxin = Not at all Being so restless that it is hard to sit still: 0 = Not at all Becoming easily annoyed or irritable: 0 = Not at all Feeling afraid as if something awful might happen: 0 = Not at all Total NATALIIA-7 score (0-4 normal; 5-9 mild; 10-14 moderate; 15-21 severe): 0 Source: Developed by Drs. Jaspal Calvillo, Aurora Pollard, Bassam Bailey and colleagues, with an educational keny from [employer]. Review of Systems Const All systems reviewed & are unremarkable except as noted in HPI and below ENT Reports no additional complaints Card Reports no additional complaints Resp Reports no additional complaints GI Reports no additional complaints Reports no additional complaints Physical exam (Primary Care) Vital Signs: Last Vital Signs Pulse 86 04/26/24 12:35 BP 120/78 04/26/24 12:35 Pulse Ox 97 04/26/24 12:35 Oxygen Delivery Method Room Air 04/26/24 12:35 BMI result Body Mass Index 30.4 Tobacco/Smoking Status: Tobacco use Status Tobacco use date assessed 03/09/24 04/26/24 12:36 Patient Tobacco Use Status Never used Tobacco 04/26/24 12:36 e-Cigarette/Vaping Use Never Used 04/26/24 12:36 Thrive Assessment: Date of Thrive Assessment Date Thrive assessed 03/09/24 04/26/24 12:36 Currently or been in a relationship where the following occur: I choose not to answer Const General: no acute distress HENMT Head: Yes normal to inspection Face and sinus: Yes normal facial exam Neck Neck: Yes no lymphadenopathy and Yes supple Resp Effort & Inspection: normal respiratory effort Auscultation: clear to auscultation bilaterally Cardio Rhythm: regular rhythm Heart sounds: S1 normal heart sound present and S2 normal heart sound present GI Inspection: Yes normal to inspection Palpation (GI): Soft to palpation Assessment and Plan Assessment & Plan (1) HTN (hypertension): Code(s): I10 - Essential (primary) hypertension Plan: Continue current medications ,repeat comprehensive panel weeks to monitor for hypokalemia after stopping potassium supplement 2 weeks ago (2) Hyperglycemia: Code(s): R73.9 - Hyperglycemia, unspecified Plan: Continue ADA diet check A1c (3) Hyperlipidemia: Comment: Crestor caused myalgia Code(s): E78.5 - Hyperlipidemia, unspecified Plan: Continue fenofibrate, check lipid profile Orders: Orders Comprehensive Met. Panel 1 Week I10 - Essential (primary) hypertension, R73.9 - Hyperglycemia, unspecified Hemoglobin A1c 1 Week I10 - Essential (primary) hypertension, R73.9 - Hyperglycemia, unspecified Lipid Panel 1 Week I10 - Essential (primary) hypertension, R73.9 - Hyperglycemia, unspecified Coding Level of Care Code Est Pt Level 4 (81391) Diagnoses HTN (hypertension) I10 Hyperglycemia R73.9 Hyperlipidemia E78.5
== END 2024-04-26 13:18 | disposition home or self-care (01) ==
PROVIDERS: PCP Internal Medicine; Visit Provider Internal Medicine
DX: I10 Essential (primary) hypertension (principal); R73.9 Hyperglycemia, unspecified; E78.5 Hyperlipidemia, unspecified

== ENCOUNTER → 2024-04-26 12:30 | Outpatient (BNVA) | payer MEDICARE, SELFPAY | PROVIDERS: PCP Internal Medicine; Visit Provider Internal Medicine | DX: I10 Essential (primary) hypertension (principal); R73.9 Hyperglycemia, unspecified; E78.5 Hyperlipidemia, unspecified | CPT/HCPCS: 99212 ==

== ENCOUNTER 2024-07-14 14:48 | Outpatient (REF) | payer MEDICARE, SELFPAY ==
--- NOTE | ~2024-07-14 | XR_ITS ---
EXAMINATION: XR HIP, RIGHT CLINICAL INFORMATION: M25.551 - Pain in right hip COMPARISON: None available. TECHNIQUE: Two views of the right hip. FINDINGS: Submitted for interpretation on July 19, 2024. No acute cortical disruption or malalignment. No lytic or blastic lesions. XR/XR hip RT min 2V IMPRESSION: No acute fracture or dislocation, right hip. Electronically signed by: Melvin Franco MD 07/19/2024 01:21 PM [facility]
== END 2024-07-14 14:49 | disposition home or self-care (01) ==
LOC: HO.HMGCX 14:48
PROVIDERS: PCP Internal Medicine; Visit Provider Internal Medicine
DX: M25.551 Pain in right hip (principal)
CPT/HCPCS: 73502

== ENCOUNTER → 2024-07-14 14:51 | Outpatient (BNV) | payer MEDICARE, SELFPAY | PROVIDERS: PCP Internal Medicine; Visit Provider Radiology Diagnostic Radiology | DX: M25.551 Pain in right hip (principal) | CPT/HCPCS: 73502 ==

== ENCOUNTER 2024-09-05 14:20 | Outpatient (AMB) | payer MEDICARE, SELFPAY ==
[2024-09-05 14:22] VITALS: BP 120/82; PULSE 84; TEMP 36.4; O2SAT 98; BMI 29.0
--- NOTE | 2024-09-05 14:22 | MHC.PC.OV ---
Vital Signs 09/05/24 14:22 Height 5 ft 11 in Weight 208 lb BMI 29.0 BP 120/82 Blood Pressure Location Lt brachial Position Sitting Pulse 84 Pulse Source Pulse Oximeter Temp 97.5 F Temp Source Oral Pulse Oximetry (%) 98 Oxygen Delivery Method Room Air Intake Visit Reasons: Sciatica pain Intake Note: Pt is here today for a sick visit. Pt c/o R hip pain that goes down his leg go his foot. Pt states that sometimes he gets numbness in his toes. Allergies Sulfa (Sulfonamide Antibiotics) [SULFA (SULFONAMIDE ANTIBIOTICS)] Allergy (Unknown, Verified 04/26/24 12:40) does not remember sulfacetamide Allergy (Unknown, Verified 04/26/24 12:40) Unknown Medication List - Last Reconciled 09/05/24 by Jackeline Garcia MD albuterol sulfate 90 mcg/actuation 2 puffs PO QID alfuzosin ER 10 mg PO DAILY amlodipine 10 mg PO DAILY aspirin 81 mg PO DAILY atenolol 50 mg PO DAILY baclofen 10 mg PO BID bethanechol chloride 50 mg PO BID famotidine 20 mg PO DAILY fenofibrate 160 mg PO DAILY finasteride 5 mg PO DAILY fluticasone propionate 50 mcg/actuation (Flonase Allergy Relief) 1 spray intranasal DAILY ipratropium bromide 2 sprays intranasal TID 30 days omeprazole 40 mg PO BID 30 days prednisone 10 mg PO DAILY triamterene-hydrochlorothiazid 37.5-25 mg 1 tab PO DAILY Tobacco use date assessed: 03/09/24 Dental Screening Dental Screen Date: 03/09/24 HPI Sciatica pain HPI Details Pt c/o R side lower back pain radiating to RLE for 2 weeks. The pain is worse when patient is sitting for long time or starting to walk. He feels better lying down. He denies weakness or numbness in extremities or change in bowel or bladder function. Pt was seen by chiropractor and had manipulation with only temporary relief. Hypertension is controlled on current medications [facility] Medical History Bronchitis Annual physical exam Hyperlipidemia Hyperglycemia Obesity GERD (gastroesophageal reflux disease) Lumbago COPD (chronic obstructive pulmonary disease) Impaired fasting glucose CAD (coronary artery disease) BPH (benign prostatic hyperplasia) HTN (hypertension) Surgical History No pertinent past surgical history Family History Father Alcoholism Substance use disorder Mother CHF (congestive heart failure) Brother No problems noted. Sister No problems noted. Sister No problems noted. Sister No problems noted. Sister No problems noted. Social History Housing: House Patient Tobacco Use Status: Never used Tobacco e-Cigarette/Vaping Use: Never Used Current occupational status: retired Cognitive needs: No Hearing needs: No Vision needs: Yes Questionnaire PHQ-9 Over the last 2 weeks, how often have you been bothered by any of the following problems? 1. Little interest or pleasure in doing things: several days 2. Feeling down, depressed, or hopeless: not at all 3. Trouble falling or staying asleep, or sleeping too much: not at all 4. Feeling tired or having little energy: several days 5. Poor appetite or overeating: not at all 6. Feeling bad about yourself - or that you are a failure or have let yourself or your family down: several days 7. Trouble concentrating on things, such as reading the newspaper or watching television: not at all 8. Moving or speaking so slowly that other people could have noticed. Or the opposite - being so fidgety or restless that you have been moving around a lot more than usual: not at all 9. Thoughts that you would be better off or of hurting yourself in some way: not at all Total score: 3 Depression Screening Interpretation: Negative Depression Screening Done: Yes 71116 - PHQ-9 Billing: Yes Source: Developed by Drs. Jaspal Calvillo, Aurora Pollard, Bassam Bailey and colleagues, with an educational keny from [employer]. Thrive Questionnaire Date Thrive assessed: 09/05/24 I am a: Patient What is your living situation today?: I have a steady place to live Within the past 12 months, did the food you bought not last and you didn't have the money to get more?: Never true Within the past 12 months, did you worry whether your food would run out before you got money to buy more?: Never true Do you have trouble paying for medicines?: No Do you have trouble getting transportation to medical appointments?: No Do you have trouble paying your heating and electricity bill?: No Do you have trouble taking care of your child, family member or friend?: No Do you have trouble with day-to-day activities such as bathing, preparing meals, shopping, managing finances, etc.?: No Are you currently unemployed and looking for a job?: No Are you interested in more education?: No Please select the resources that you would like help with: None Currently or been in a relationship where the following occur: No concerns reported THRIVE Score: 0 AUDIT C Alcohol Use Questionnaire (AUDIT-C) 1. How often do you have a drink containing alcohol?: Never 3. How often do you have six or more drinks on one occasion?: Never Total Score: 0 NATALIIA-7 AMB Questionnaire NATALIIA-7 Date NATALIIA - 7 assessed: 09/05/24 Feeling nervous, anxious, or on edge: 0 = Not at all Not being able to stop or control worryin = Not at all Worrying too much about different things: 0 = Not at all Trouble relaxin = Several days Being so restless that it is hard to sit still: 0 = Not at all Becoming easily annoyed or irritable: 0 = Not at all Feeling afraid as if something awful might happen: 0 = Not at all Total NATALIIA-7 score (0-4 normal; 5-9 mild; 10-14 moderate; 15-21 severe): 1 Source: Developed by Drs. Jaspal Calvillo, Aurora Pollard, Bassam Bailey and colleagues, with an educational keny from [employer]. NATALIIA-7 Assessment Billing NATALIIA-7 Assessment Tool: NATALIIA-7 Assessment 97096 Review of Systems Const All systems reviewed & are unremarkable except as noted in HPI and below ENT Reports no additional complaints Card Reports no additional complaints Resp Reports no additional complaints GI Reports no additional complaints Reports no additional complaints Physical exam (Primary Care) Vital Signs: Last Vital Signs Temp 97.5 F 09/05/24 14:22 Pulse 84 09/05/24 14:22 BP 120/82 09/05/24 14:22 Pulse Ox 98 09/05/24 14:22 Oxygen Delivery Method Room Air 09/05/24 14:22 BMI result Body Mass Index 29.0 Tobacco/Smoking Status: Tobacco use Status Tobacco use date assessed 03/09/24 09/05/24 14:24 Patient Tobacco Use Status Never used Tobacco 09/05/24 14:24 e-Cigarette/Vaping Use Never Used 09/05/24 14:24 PHQ-9: PHQ-9 Score PHQ-9: Total score 3 09/05/24 14:32 Depression Screening Interpretation: Negative Thrive Assessment: Date of Thrive Assessment Date Thrive assessed 09/05/24 09/05/24 14:32 Currently or been in a relationship where the following occur: No concerns reported Const General: no acute distress HENMT Head: Yes normal to inspection Neck Neck: Yes no lymphadenopathy and Yes supple Resp Effort & Inspection: normal respiratory effort Auscultation: clear to auscultation bilaterally Cardio Rhythm: regular rhythm Heart sounds: S1 normal heart sound present and S2 normal heart sound present GI Inspection: Yes normal to inspection Palpation (GI): Soft to palpation Percussion: Yes normal to percussion Auscultation: normal bowel sounds Back/Spine/Pelvis Other: There is decreased range of motion lumbar spine, straight leg rising 40 degrees on the right 90 degrees on the left. Deep tendon reflexes are 2+ bilaterally Coding Level of Care Code Est Pt Level 4 (88146) Diagnoses Sciatica M54.30 HTN (hypertension) I10 Hyperglycemia R73.9 Additional Codes NATALIIA-7 Assessment Billing - NATALIIA-7 Assessment Tool: NATALIIA-7 Assessment 98085 ([id number]) PHQ-9 - 60281 - PHQ-9 Billing: Yes ([id number]) Assessment & Plan Assessment & Plan (1) Sciatica: Code(s): M54.30 - Sciatica, unspecified side Category: Medical Plan: Prednisone taper and baclofen prescribed , x-ray of lumbar spine will be obtained , patient will be referred to physical therapy (2) HTN (hypertension): Code(s): I10 - Essential (primary) hypertension Category: Medical Plan: Continue medications (3) Hyperglycemia: Code(s): R73.9 - Hyperglycemia, unspecified Category: Medical Plan: Continue ADA diet Orders: Orders XR lumbar spine 2-3V Today M54.30 - Sciatica, unspecified side PT Evaluation and Treatment Today M54.30 - Sciatica, unspecified side AMB Urinalysis Automated 1 Month E78.5 - Hyperlipidemia, unspecified, I10 - Essential (primary) hypertension, M54.30 - Sciatica, unspecified side, R73.9 - Hyperglycemia, unspecified, Z13.9 - Encounter for screening, unspecified Comprehensive [place]. Panel Fast 1 Month E78.5 - Hyperlipidemia, unspecified, I10 - Essential (primary) hypertension, M54.30 - Sciatica, unspecified side, R73.9 - Hyperglycemia, unspecified Lipid Panel 1 Month E78.5 - Hyperlipidemia, unspecified, I10 - Essential (primary) hypertension, M54.30 - Sciatica, unspecified side, R73.9 - Hyperglycemia, unspecified Hemoglobin A1c 1 Month E78.5 - Hyperlipidemia, unspecified, I10 - Essential (primary) hypertension, M54.30 - Sciatica, unspecified side, R73.9 - Hyperglycemia, unspecified Complete Blood Count Auto Diff 1 Month E78.5 - Hyperlipidemia, unspecified, I10 - Essential (primary) hypertension, M54.30 - Sciatica, unspecified side, R73.9 - Hyperglycemia, unspecified Microalbumin, Random (w Creat) 1 Month E78.5 - Hyperlipidemia, unspecified, I10 - Essential (primary) hypertension, M54.30 - Sciatica, unspecified side, R73.9 - Hyperglycemia, unspecified Medications: New prednisone 4 tabl qd for 3 days, then 3 tabl qd for 3 days, then 2 tabl qd for 3 days, 1 tabl qd x 3 days 10 mg PO DAILY 30 tabs 0RF baclofen 10 mg PO BID 60 tabs 0RF
--- OUTSIDE RECORDS SUMMARY | 2024-09-05 18:49 | XMS_ITS | Patient Health Record ---
[facility] Address [address] [place] [address] Care Team Providers Care Control Center Operator Name Role Phone Jackeline Garcia MD Primary Care Provider Chaz Neri Unavailable [phone] Allergies Allergen (clinical drug ingredient) Drug/Non Drug Allergy documented on EMR Reaction Allergy Type Onset Date Status sulfamethoxazole / trimethoprim Bactrim Young Drug Allergy Active Substance with sulfonamide structure and antibacterial mechanism of action (substance) Sulfa Antibiotics Unknown Drug Allergy Inactive sulfacetamide Sulfacetamide Unknown Drug Allergy Inactive Reason For Referral No Information Medications Medication SIG (Take, Route, Frequency, Duration) Notes Start Date End Date Status hydroCHLOROthiazide 50 MG 1 tablet in th e morning Orally Once a day Active Finasteride 5 MG 1 tablet Orally Once a day Active Fenofibrate 160 MG 1 tablet Orally Once a day Active Famotidine 20 MG 1 tablet at bedtime as needed Orally Once a day Active Aspirin 81 MG 1 tablet Orally Once a day Active Night Splint AFO - L1930 as directed 01/29/2023 Active Atenolol 50 MG 1 tablet Orally Once a day Active Albuterol Sulfate 108 (90 Base) MCG/ACT 1 puff as needed Inhalation every 4 hrs Unknown amLODIPine Besylate 10 MG 1 tablet Orall y Once a day Active Tamsulosin HCl 0.4 MG 1 capsule Orally Once a day Active Rosuvastatin Calcium 5 MG 1 tablet Orall y Once a day Active Potassium Chloride ER 10 MEQ 1 tablet wi th food Orally Twice a day Active Omeprazole 40 MG 1 capsule 30 minutes before morning meal Orally Once a day Active Multivitamin One A Day Active Social History Tobacco Use: Social History Observation Description Date Details (start date - stop date) Never Smoker NA - NA Tobacco Use/Smoking Question Answer Notes Are you a: nonsmoker Additional Findings: Tobacco Non-User Current no n-smoker Alcohol Screen Question Answer Notes Did you have a drink containing alcohol in the p ast year? No Points 0 Interpretation Negative Tobacco use other than smoking: Question Answer Notes Are you an other tobacco user? No Plan Of Treatment Pending Test Test Name Order Date X ray : Foot, left 3V 01/29/2023 Insurance Providers Payer Name Payer Address Payer Phone Subscriber Number Group Number Insured Name Patient Relationship to Insured Coverage Start Date Coverage End Date [employer] Medicare [id number] [address] [address] [place] [address] [id number] Kenan Castañeda Self - patient is the insured Medical (General) History Medical History History ICD Code Benign prostatic hyperplasia (BPH) chronic bronchitis CAD ( Coronary Artery Disease) COPD Gastroesophageal reflux disease (GERD) Hypertension Hyperglycemia Hyperlipidemia Impaired Fasting Glucose Lumbargo Obesity Surgical History Surgery Date(Month/Year)
--- OUTSIDE RECORDS SUMMARY | 2024-09-05 18:50 | XMS_ITS ---
Author Organization [facility] Address [address] [place] [id number] Care Team Providers Care Supervisor Wheel Shop Name Role Phone Jackeline Garcia MD Primary Care Provider Chaz Neri [phone] REASON FOR VISIT No Show Encounters Encounter Location Date Provider Diagnosis [facility] [address] [place] [address] 03/12/2023 Chaz Ray Plan Of Treatment No Information Progress Notes * Kenan LANE SDOB:1949 (72 yo M)Acc No.[id number]:03/12/2023 Patient:?Kenan Lane Yane :1950???Age:72 Y???Sex:Male [address] [place] [address] * true * Date:? Generated for Printi ng/Praveen/eTransmitting on:?09/05/2024 06:49 PM EST
--- OUTSIDE RECORDS SUMMARY | 2024-09-05 18:50 | XMS_ITS ---
Author Organization [facility] Address [address] [place] [address] Care Team Providers Care Patient Liaison Name Role Phone Jackeline Garcia MD Primary Care Provider Chaz Neri [phone] Medications Medication SIG (Take, Route, Frequency, Duration) Notes Start Date End Date Status hydroCHLOROthiazide 50 MG 1 tablet in th e morning Orally Once a day Active Finasteride 5 MG 1 tablet Orally Once a day Active Fenofibrate 160 MG 1 tablet Orally Once a day Active Famotidine 20 MG 1 tablet at bedtime as needed Orally Once a day Active Multivitamin One A Day Active Aspirin 81 MG 1 tablet Orally [...] morning meal Orally Once a day Active Encounters Encounter Location Date Provider Diagnosis [facility] [address] [place] [address] 03/12/2023 Chaz Ray Plan Of Treatment No Information Progress Notes * Kenan LANE SDOB:1949 (74 yo M)Acc No.[id number]:03/12/2023 Progress Notes Patient:?Kenan LANE Provider:?Chaz Ray DPM :1950???Age:72 Y???Sex:Male Oli e:03/12/2023 Address:[address] [place] [address] [id number] Pcp:Jackeline Garcia MD Subjective: * Chief Complaints: * ??? * HPI: ???Heel pain:?Nature:?sharp pain.?Location:?Proximal plantar aspect of Heel, LEFT.?Duration:?two months .?Onset/Cause:?unknown, denies trauma.?Course:?worse.?Aggravated:?walking first thing in the morning/after rest.?Treatments:?change in shoes.?Severity/Quality:?considered 5 out of 10.? * Medical History:? * Medications:?Taking amLODIPi ne Besylate 10 MG Tablet 1 tablet Orally Once a day , Taking Atenolol 50 MG Tablet 1 tablet Orally Once a day , Taking Aspirin 81 MG Tablet Chewable 1 tablet Orally Once a day , Taking Famotidine 20 MG Tablet 1 tablet at bedtime as needed Orally Once a day , Taking Fenofibrate 160 MG Tablet 1 tablet Orally Once a day , Taking Finasteride 5 MG Tablet 1 tablet Orally Once a day , Taking hydroCHLOROthiazide 50 MG Tablet 1 tablet in the morning Orally Once a day , Taking Multivitamin , Notes to Pharmacist: One A Day, Taking Omeprazole 40 MG Capsule Delayed Release 1 capsule 30 minutes before morning meal Orally Once a day , Taking Potassium Chloride ER 10 MEQ Tablet Extended Release 1 tablet with food Orally Twice a day , Taking Rosuvastatin Calcium 5 MG Tablet 1 tablet Orally Once a day , Taking Tamsulosin HCl 0.4 MG Capsule 1 capsule Orally Once a day , Taking Night Splint AFO - L1930 as directed , Unknown Albuterol Sulfate 108 (90 Base) MCG/ACT Aerosol Powder Breath Activated 1 puff as needed Inhalation every 4 hrs Objective: * Vitals:? Assessment: Plan: * Treatment: * Images: * The named appointment provid er may or may not be the originator of this progress note, and it is not deemed complete until electronically signed by the appointment provider. Sign off status: Pending * Provider:Manuel Ray DPM Date:? 023 Generated for Prince garza/Praveen/Grant on:?09/05/2024 06:49 PM EST History and Physical Notes * HPI (History of Present Illness) Category Sub-Category Detail Notes Category Not es Heel pain Duration: two months Nature: sharp pain Severity/Quality: considered 5 out of 10 Location: Proximal plantar asp ect of Heel, LEFT Onset/Cause: unknown, denies cira gupta Aggravated: walking first thing in the morning/after rest Course: worse Treatments: change in shoes
== END 2024-09-05 15:03 | disposition home or self-care (01) ==
PROVIDERS: PCP Internal Medicine; Visit Provider Internal Medicine
DX: M54.30 Sciatica, unspecified side (principal); I10 Essential (primary) hypertension; R73.9 Hyperglycemia, unspecified

== ENCOUNTER → 2024-09-05 14:20 | Outpatient (BNVA) | payer MEDICARE, SELFPAY | PROVIDERS: PCP Internal Medicine; Visit Provider Internal Medicine | DX: M54.30 Sciatica, unspecified side (principal); I10 Essential (primary) hypertension; R73.9 Hyperglycemia, unspecified | CPT/HCPCS: 96127; 99212 ==

== ENCOUNTER 2024-09-09 14:03 | Outpatient (REF) | payer MEDICARE, SELFPAY ==
--- NOTE | ~2024-09-09 | XR_ITS ---
EXAMINATION: XR LUMBOSACRAL SPINE CLINICAL INFORMATION: M54.30 - Sciatica, unspecified side COMPARISON: None available. TECHNIQUE: Three views of the lumbosacral spine. FINDINGS: Facet joint hypertrophy at L5-S1. Multilevel endplate sclerosis and marginal osteophyte formation. No acute cortical disruption or gross malalignment. No lytic or blastic lesions. Rudimentary ribs at T12. Vascular calcifications, abdominal aorta. XR/XR lumbar spine 2-3V IMPRESSION: Multilevel spondylosis without acute fracture or trauma-related listhesis. Electronically signed by: Melvin Franco MD 09/12/2024 11:15 AM EST
== END 2024-09-09 14:04 | disposition home or self-care (01) ==
LOC: HO.HMGCX 14:03
PROVIDERS: PCP Internal Medicine; Visit Provider Internal Medicine
DX: M54.30 Sciatica, unspecified side (principal)
CPT/HCPCS: 72100

== ENCOUNTER → 2024-09-09 14:06 | Outpatient (BNV) | payer MEDICARE, SELFPAY | PROVIDERS: PCP Internal Medicine; Visit Provider Radiology Diagnostic Radiology | DX: M47.896 Other spondylosis, lumbar region (principal) | CPT/HCPCS: 72100 ==

== ENCOUNTER 2024-09-30 13:11 | Outpatient (AMB) | payer MEDICARE, SELFPAY ==
--- OUTSIDE RECORDS SUMMARY | 2024-09-30 13:37 | XMS_ITS | Patient Health Record ---
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 Name Role Phone Jackeline Garcia MD Primary Care Provider Chaz Neri Unavailable [phone] Allergies Allergen (clinical drug ingredient) Drug/Non Drug [...] Date Coverage End Date [employer] Medicare [id number] [address] [address] [place] [address] [id number] Kenan Castañeda Self - patient is the insured Medical (General) History Medical History History ICD Code Benign prostatic hyperplasia (BPH) chronic bronchitis CAD ( Coronary Artery Disease) COPD Gastroesophageal reflux disease (GERD) Hypertension Hyperglycemia Hyperlipidemia Impaired Fasting Glucose Lumbargo Obesity Surgical History Surgery Date(Month/Year)
[2024-09-30 13:42] VITALS: BP 118/74; PULSE 77; O2SAT 97; BMI 29.7
--- NOTE | 2024-09-30 13:42 | MHC.OFFVIS ---
Vital Signs 09/30/24 13:42 Height 5 ft 11 in Weight 213 lb BMI 29.7 BP 118/74 Blood Pressure Location Lt brachial Position Sitting Pulse 77 Pulse Source Doppler Pulse Oximetry (%) 97 Oxygen Delivery Method Room Air Intake Visit Reasons: cough Allergies Sulfa (Sulfonamide Antibiotics) [SULFA (SULFONAMIDE ANTIBIOTICS)] Allergy (Unknown, Verified 04/26/24 12:40) does not remember sulfacetamide Allergy (Unknown, Verified 04/26/24 12:40) Unknown HPI HPI cough: Details: 74-year-old gentleman, lifetime nonsmoker, with no significant industrial exposures followed for GERD, sarcoidosis diagnosed based on EBUS in October of 2019, and AMRIK.? Patient has been using his air duo and albuterol MDI with good baseline control of his symptoms. Today patient complains of worsening bronchitic symptoms with increased productive cough. [facility] Medical History Bronchitis Annual physical exam Hyperlipidemia Hyperglycemia Obesity GERD (gastroesophageal reflux disease) Lumbago COPD (chronic obstructive pulmonary disease) Impaired fasting glucose CAD (coronary artery disease) BPH (benign prostatic hyperplasia) HTN (hypertension) Surgical History No pertinent past surgical history Family History Father Alcoholism Substance use disorder Mother CHF (congestive heart failure) Brother No problems noted. Sister No problems noted. Sister No problems noted. Sister No problems noted. Sister No problems noted. Social History Housing: House Patient Tobacco Use Status: Never used Tobacco e-Cigarette/Vaping Use: Never Used Current occupational status: retired Cognitive needs: No Hearing needs: No Vision needs: Yes Review of Systems Const Denies daytime sleepiness, Denies excessive sweating, Denies fatigue, Denies fever(s), Denies lethargy, Denies malaise, Denies night sweats, Denies snoring and Denies weight loss Eyes Denies blurry vision and Denies itchy eyes ENT Denies nasal congestion, Denies post nasal drip, Denies sinus pain, Denies sinus pressure and Denies other ( Thrush) Card Denies chest pain, Denies pedal edema, Denies dyspnea, Denies orthopnea and Denies paroxysmal nocturnal dyspnea Resp Reports cough, Denies hemoptysis, Reports excessive phlegm production, Denies dyspnea, Denies snoring and Denies wheezing GI Denies abdominal pain and Denies heartburn Musc Denies myalgias, Denies arthralgias and Denies joint swelling Skin/Breast Denies rash Neuro Denies memory loss and Denies seizure-like activity Psych Denies abnormal sleep pattern, Denies anxiety and Denies memory loss Endo Denies excessive sweating, Denies fatigue and Denies heat intolerance Ethan/Lymph Denies easy bruising Aller/Immun Denies itchy eyes, Denies seasonal rhinorrhea and Denies wheezing Physical Exam Vital Signs: Last Vital Signs Pulse 77 09/30/24 13:42 BP 118/74 09/30/24 13:42 Pulse Ox 97 09/30/24 13:42 Oxygen Delivery Method Room Air 09/30/24 13:42 BMI result Body Mass Index 29.7 Const General: no acute distress and alert Nutritional Appearance: not obese Orientation/consciousness: Other orientation findings ( oriented) HEENT Head: Yes atraumatic Eyes General: appearance normal, both eyes and all related structures Sclerae: sclerae normal EOM: EOMs intact bilaterally Neck Neck: Yes supple Lymphatic: no lymphadenopathy noted Resp Effort & Inspection: normal respiratory effort and no use of accessory muscles Auscultation: clear to auscultation bilaterally Cardio Rate: regular rate Rhythm: regular rhythm Heart sounds: no gallops, no murmurs and no rubs Skin General skin exam: other ( warm) Extrem General: No clubbing, No cyanosis and No edema Assessment & Plan Assessment & Plan (1) Sarcoidosis: Code(s): D86.9 - Sarcoidosis, unspecified Category: Medical Plan: Overall clinically silent. Continue to monitor. Continue as needed albuterol MDI. (2) Cough: Code(s): R05.9 - Cough, unspecified Category: Medical Plan: Worsening bronchitic symptoms, will treat with a course of Levaquin. (3) AMRIK on CPAP: Code(s): G47.33 - Obstructive sleep apnea (adult) (pediatric); Z99.89 - Dependence on other enabling machines and devices Category: Medical Plan: With suboptimal compliance. Patient has been encouraged to be more compliant with CPAP therapy. Medications: New levofloxacin 750 mg PO DAILY 7 tabs 0RF Coding Level of Care Code Est Pt Level 4 (25632) Diagnoses Sarcoidosis D86.9 Cough R05.9 AMRIK on CPAP G47.33; Z99.89
== END 2024-09-30 15:05 | disposition home or self-care (01) ==
PROVIDERS: PCP Internal Medicine; Visit Provider Internal Medicine Pulmonary Disease
DX: D86.9 Sarcoidosis, unspecified (principal); R05.9 Cough, unspecified; G47.33 Obstructive sleep apnea (adult) (pediatric); Z99.89 Dependence on other enabling machines and devices
CPT/HCPCS: 99214

== ENCOUNTER → 2024-09-30 13:11 | Outpatient (BNVA) | payer MEDICARE, SELFPAY | PROVIDERS: PCP Internal Medicine; Visit Provider Internal Medicine Pulmonary Disease | DX: R05.9 Cough, unspecified (principal); D86.9 Sarcoidosis, unspecified; G47.33 Obstructive sleep apnea (adult) (pediatric); Z99.89 Dependence on other enabling machines and devices | CPT/HCPCS: 99212 ==

== ENCOUNTER 2024-10-24 09:55 | Outpatient (AMB) | payer MEDICARE, SELFPAY ==
[2024-10-24 10:08] VITALS: BP 136/84; PULSE 87; RESP 18; TEMP 36.7; O2SAT 97; BMI 29.6
--- NOTE | 2024-10-24 10:08 | A.OFFPC_ITS ---
Vital Signs 10/24/24 10:08 Height 5 ft 11 in Weight 212 lb BMI 29.6 BP 136/84 Blood Pressure Location Lt brachial Position Sitting Respiration 18 Pulse 87 Pulse Source Pulse Oximeter Temp 98.0 F Temp Source Oral Pulse Oximetry (%) 97 Oxygen Delivery Method Room Air Intake Visit Reasons: 6m follow up Intake Note: Pt is here today for 6 months follow up visit. Pt states that he has been having feeling dizzy. Allergies Sulfa (Sulfonamide Antibiotics) [SULFA (SULFONAMIDE ANTIBIOTICS)] Allergy (Unknown, Verified 10/24/24 10:13) does not remember sulfacetamide Allergy (Unknown, Verified 10/24/24 10:13) Unknown Medication List - Last Reconciled 10/24/24 by Jackeline Garcia MD albuterol sulfate 90 mcg/actuation 2 puffs PO QID alfuzosin ER 10 mg PO DAILY amlodipine 10 mg PO DAILY aspirin 81 mg PO DAILY atenolol 50 mg PO DAILY baclofen 10 mg PO BID bethanechol chloride 50 mg PO BID famotidine 20 mg PO DAILY fenofibrate 160 mg PO DAILY finasteride 5 mg PO DAILY fluticasone propionate 50 mcg/actuation (Flonase Allergy Relief) 1 spray intranasal DAILY ipratropium bromide 2 sprays intranasal TID 30 days omeprazole 40 mg PO BID 30 days triamterene-hydrochlorothiazid 37.5-25 mg 1 tab PO DAILY Tobacco use date assessed: 10/24/24 Fall risk assessment: 1 Fall in past year Last assessed Fall Risk: 10/24/24 Dental Screening Dental Screen Date: 10/24/24 Did you have a dental visit in the last 12 months?: Yes Did you have a dental problem in the last 6 months where you did not have access to dental care?: No Was dental information given to patient?: Patient has dentist HPI 6m follow up HPI Details Pt presents for f/u of HTN, hyperlipid, stable on meds. Patient reports difficulty with the balance, especially at night when dark in his bedroom, worse for the last 2 weeks. He denies recent falls weakness or numbness in extremities change in vision. Patient has not seen the vortex operator for few years. He also reports becoming more forgetful but denies getting lost while driving or forgetting to turn off the stove. [facility] Medical History Bronchitis Annual physical exam Hyperlipidemia Hyperglycemia Obesity GERD (gastroesophageal reflux disease) Lumbago COPD (chronic obstructive pulmonary disease) Impaired fasting glucose CAD (coronary artery disease) BPH (benign prostatic hyperplasia) HTN (hypertension) Surgical History No pertinent past surgical history Family History Father Alcoholism Substance use disorder Mother CHF (congestive heart failure) Brother No problems noted. Sister No problems noted. Sister No problems noted. Sister No problems noted. Sister No problems noted. Social History Housing: House Patient Tobacco Use Status: Never used Tobacco e-Cigarette/Vaping Use: Never Used service: Yes Current occupational status: retired Cognitive needs: No Hearing needs: No Vision needs: Yes Questionnaire Thrive Questionnaire Date Thrive assessed: 09/05/24 I am a: Patient What is your living situation today?: I have a steady place to live Within the past 12 months, did the food you bought not last and you didn't have the money to get more?: Never true Within the past 12 months, did you worry whether your food would run out before you got money to buy more?: Never true Do you have trouble paying for medicines?: No Do you have trouble getting transportation to medical appointments?: No Do you have trouble paying your heating and electricity bill?: No Do you have trouble taking care of your child, family member or friend?: No Do you have trouble with day-to-day activities such as bathing, preparing meals, shopping, managing finances, etc.?: No Are you currently unemployed and looking for a job?: No Are you interested in more education?: No Please select the resources that you would like help with: None Currently or been in a relationship where the following occur: No concerns reported THRIVE Score: 0 AUDIT C Alcohol Use Questionnaire (AUDIT-C) 1. How often do you have a drink containing alcohol?: Never 3. How often do you have six or more drinks on one occasion?: Never Total Score: 0 NATALIIA-7 AMB Questionnaire NATALIIA-7 Date NATALIIA - 7 assessed: 09/05/24 Becoming easily annoyed or irritable: 1 = Several days Source: Developed by Drs. Jaspal Calvillo, Aurora Pollard, Bassam Bailey and colleagues, with an educational keny from [employer]. Review of Systems Const All systems reviewed & are unremarkable except as noted in HPI and below Eyes Reports no additional complaints ENT Reports no additional complaints Card Reports no additional complaints Resp Reports no additional complaints GI Reports no additional complaints Reports no additional complaints Physical exam (Primary Care) Vital Signs: Last Vital Signs Temp 98.0 F 10/24/24 10:08 Pulse 87 10/24/24 10:08 Resp 18 10/24/24 10:08 BP 136/84 10/24/24 10:08 Pulse Ox 97 10/24/24 10:08 Oxygen Delivery Method Room Air 10/24/24 10:08 BMI result Body Mass Index 29.6 Tobacco/Smoking Status: Tobacco use Status Tobacco use date assessed 10/24/24 10/24/24 10:19 Patient Tobacco Use Status Never used Tobacco 10/24/24 10:19 e-Cigarette/Vaping Use Never Used 10/24/24 10:09 Thrive Assessment: Date of Thrive Assessment Date Thrive assessed 09/05/24 10/24/24 10:09 Currently or been in a relationship where the following occur: No concerns reported Const General: no acute distress HENMT Head: Yes normal to inspection Eyes General: appearance normal, both eyes and all related structures Resp Effort & Inspection: normal respiratory effort Auscultation: clear to auscultation bilaterally Cardio Rhythm: regular rhythm Heart sounds: S1 normal heart sound present and S2 normal heart sound present GI Inspection: Yes normal to inspection Palpation (GI): Soft to palpation Neuro Cranial nerves: Yes CN's II-XII intact bilaterally Gait exam (Neuro): Normal gait present Motor exam (neuro): 5/5 motor strength present throughout Romberg Test: Negative Coding Level of Care Code Est Pt Level 4 (21183) Diagnoses Poor balance R26.89 Sarcoidosis D86.9 HTN (hypertension) I10 Hyperglycemia R73.9 Assessment & Plan Assessment & Plan (1) Poor balance: Code(s): R26.89 - Other abnormalities of gait and mobility Category: Medical Plan: Patient was advised to schedule an appointment with vortex operator, he will be referred to PT, check vitamin B12 level (2) Sarcoidosis: Comment: Established with automatic furnace operator, no active treatment Code(s): D86.9 - Sarcoidosis, unspecified Category: Medical Plan: Albuterol p.r.n. (3) HTN (hypertension): Code(s): I10 - Essential (primary) hypertension Category: Medical Plan: Continue current medications, check fasting blood work today (4) Hyperglycemia: Code(s): R73.9 - Hyperglycemia, unspecified Category: Medical Plan: ADA diet increase exercise weight loss discussed with the patient, follow-up in 6 months Orders: Orders Vitamin B12 and Folate Today D86.9 - Sarcoidosis, unspecified, I10 - Essential (primary) hypertension, J44.9 - Chronic obstructive pulmonary disease, unspecified, R26.89 - Other abnormalities of gait and mobility, R73.9 - Hyperglycemia, unspecified Comprehensive [place]. Panel Fast Today D86.9 - Sarcoidosis, unspecified, I10 - Essential (primary) hypertension, J44.9 - Chronic obstructive pulmonary disease, unspecified, R26.89 - Other abnormalities of gait and mobility, R73.9 - Hyperglycemia, unspecified Lipid Panel Today D86.9 - Sarcoidosis, unspecified, I10 - Essential (primary) hypertension, J44.9 - Chronic obstructive pulmonary disease, unspecified, R26.89 - Other abnormalities of gait and mobility, R73.9 - Hyperglycemia, unspecified Microalbumin, Random (w Creat) Today D86.9 - Sarcoidosis, unspecified, I10 - Essential (primary) hypertension, J44.9 - Chronic obstructive pulmonary disease, unspecified, R26.89 - Other abnormalities of gait and mobility, R73.9 - Hyperglycemia, unspecified Methylmalonic Acid Today D86.9 - Sarcoidosis, unspecified, I10 - Essential (primary) hypertension, J44.9 - Chronic obstructive pulmonary disease, unspecified, R26.89 - Other abnormalities of gait and mobility, R73.9 - Hyperglycemia, unspecified PT Evaluation and Treatment Today R26.89 - Other abnormalities of gait and mobility Hemoglobin A1c Today D86.9 - Sarcoidosis, unspecified, I10 - Essential (primary) hypertension, J44.9 - Chronic obstructive pulmonary disease, unspecified, R26.89 - Other abnormalities of gait and mobility, R73.9 - Hyperglycemia, unspecified Complete Blood Count Auto Diff Today D86.9 - Sarcoidosis, unspecified, I10 - Essential (primary) hypertension, J44.9 - Chronic obstructive pulmonary disease, unspecified, R26.89 - Other abnormalities of gait and mobility, R73.9 - Hyperglycemia, unspecified Medications: Discontinued bethanechol chloride Discontinued Reason: Doctor's Order 50 mg PO BID 60 tabs 2RF
--- OUTSIDE RECORDS SUMMARY | 2024-10-24 10:57 | XMS_ITS | Patient Health Record ---
[facility] Address [address] [place] [address] Care Team Providers Care Artillery Specialist Name Role Phone Jackeline Garcia MD Primary Care Provider Chaz Neri Unavailable [phone] Allergies Allergen (clinical drug ingredient) Drug/Non Drug Allergy documented on EMR Reaction Allergy Type Onset Date Status Bactrim Young Drug Allergy Active Substance with [...] Date Coverage End Date [employer] Medicare [id number] [address] [address] [place] [address] [id number] Kenan Castañeda Self - patient is the insured Medical (General) History Medical History History ICD Code Benign prostatic hyperplasia (BPH) chronic bronchitis CAD ( Coronary Artery Disease) COPD Gastroesophageal reflux disease (GERD) Hypertension Hyperglycemia Hyperlipidemia Impaired Fasting Glucose Lumbargo Obesity Surgical History Surgery Date(Month/Year)
== END 2024-10-24 10:39 | disposition home or self-care (01) ==
LOC: HO.HMCC 09:56
PROVIDERS: PCP Internal Medicine; Visit Provider Internal Medicine
DX: R26.89 Other abnormalities of gait and mobility (principal); D86.9 Sarcoidosis, unspecified; I10 Essential (primary) hypertension; R73.9 Hyperglycemia, unspecified

== ENCOUNTER → 2024-10-24 09:55 | Outpatient (BNVA) | payer MEDICARE, SELFPAY | PROVIDERS: PCP Internal Medicine; Visit Provider Internal Medicine | DX: R26.89 Other abnormalities of gait and mobility (principal); D86.9 Sarcoidosis, unspecified; I10 Essential (primary) hypertension; R73.9 Hyperglycemia, unspecified | CPT/HCPCS: 99212 ==

== ENCOUNTER 2024-10-25 09:59 | Outpatient (REF) | payer MEDICARE, SELFPAY ==
[2024-10-25 13:00] LABS: MANUAL DIFF FLAG NO
[2024-10-25 13:20] LABS: Basophils Absolute Auto 0.1 X10*3/uL (0.0-0.2); Basophils Percent Auto 0.9 % (0-2); Eosinophils Absolute Auto 1.1 X10*3/uL (0.0-0.4); Eosinophils Percent Auto 12.3 % (0-4); Hematocrit 45.3 % (42.0-52.0); Hemoglobin 15.8 g/dl (14.0-18.0); Imm Gran Abs Auto 0.02 X10*3/uL (0.00-0.03); Imm Gran Pct Auto 0.2 % (0.0-0.4); Lymphocytes Absolute Auto 1.8 X10*3/uL (1.2-4.9); Lymphocytes Percent Auto 20.9 % (20-40); Mean Corpuscular HGB Conc 34.9 g/dl (31.0-36.0); Mean Corpuscular Hemoglobin 30.7 pg (27.0-33.0); Mean Platelet Volume 12.7 fL (9.4-12.4); Monocytes Absolute Auto 0.6 X10*3/uL (0.1-1.2); Monocytes Percent Auto 6.8 % (2-11); Neutrophils Percent Auto 58.9 % (45-73); Platelet Count 208 X10*3/uL (160-400); Red Blood Count 5.15 X10*6/uL (4.60-5.80); Red Cell Distribution Width 12.4 % (11.0-16.0); White Blood Count 8.5 X10*3/uL (4.8-10.8)
[2024-10-25 13:39] LABS: Estimated Average Glucose 100 mg/dL; Hemoglobin A1c % 5.1 % (<6.0)
[2024-10-25 13:46] LABS: Alanine Aminotransferase 26 U/L (0-40); Albumin Level 4.1 g/dL (3.5-5.0); Alkaline Phosphatase 74 U/L (39-117); Anion Gap 11 (12-20); Aspartate Amino Transferase 32 U/L (5-37); Bilirubin Total 0.5 mg/dL (0.0-1.0); Blood Urea Nitrogen 16 mg/dL (9-16); Calcium 9.6 mg/dL (8.4-10.2); Carbon Dioxide 29 mmol/L (22-29); Chloride 105 mmol/L (96-108); Cholesterol 173 mg/dL (<200); Estimated Glomerular Filt Rate > 60; Glucose Fasting 93 mg/dL (60-99); HDL Cholesterol 36 mg/dL (>40); LDL Cholesterol Calculated 102 mg/dL (<100); Potassium 3.7 mmol/L (3.3-5.1); Sodium 141 mmol/L (135-145); Total Protein 7.8 g/dL (6.5-8.0); Triglycerides 179 mg/dL (<150)
[2024-10-25 14:06] LABS: Folate 15.1 ng/mL (> or = 4.0); Vitamin B12 698 pg/mL (200-900)
[2024-10-25 14:09] LABS: Creatinine Urine 66.99 mg/dL; Microalbum/Creatinine Ratio Ur 122.4 ug/mg cr (<30)
[2024-10-29 04:18] LABS: Methylmalonic Acid 138 nmol/L (69-390)
== END 2024-10-25 10:00 | disposition home or self-care (01) ==
LOC: HO.HMGCLDS 09:59
PROVIDERS: PCP Internal Medicine; Visit Provider Internal Medicine
DX: R26.89 Other abnormalities of gait and mobility (principal); J44.9 Chronic obstructive pulmonary disease, unspecified; D86.9 Sarcoidosis, unspecified; R73.9 Hyperglycemia, unspecified; I10 Essential (primary) hypertension
CPT/HCPCS: 36415; 80053; 80061; 82043; 82570; 82607; 82746; 83036; 83921; 85025

== ENCOUNTER 2024-11-04 13:00 | Outpatient (RCR) | payer MEDICARE, SELFPAY ==
--- NOTE | 2024-10-13 14:44 | MHC.PT.EP ---
[facility] [place] [facility] [place] [facility] [place] [facility] [address] Lyndon Garcia [address] [phone] F: [phone] F: [phone] F: [phone] F: [phone] Physical Therapy Plan of Care Date of Evaluation: 10/13/24 Date of Surgery: Diagnosis: sciatica Assessment: Patient is a 74 year old R handed male who presents with s/s consistent with sciatica, low back pain. He does not work, is retired and lives a fairly sedentary lifestyle. Patient past medical history includes COPD, Lumbago, GERD, and OA. Current impairments include pain, posture, flexibility, ROM, strength, activity tolerance and functional mobility. Functional limitations include decreased ability to walk, stand, transfer, bend, lift, and carry. Patient is motivated with good rehab potential. Skilled PT will address impairments and functional limitations in order to achieve goals. Frequency and Duration: The patient will be seen 2x/week for 5 weeks Short Term Goals: I with HEP -2 weeks AROM rotation 75% and pain free - 3 weeks S/s centralized - 3 weeks lacking 40 or less R, 30 or less L- 3 weeks Senior Care Goals: Max pain with ADLs /10 - 5 weeks lacking < 30 b/l - 5 weeks Oswestry 24% or less - 5 weeks TTP R piriformis absent - 5 weeks Treatment Plan: Modalities to reduce pain, spasms and effusion. Manual therapy to restore motion and function. Therapeutic exercise to improve strength and flexibility. Neuromuscular re-education for posture and balance. Therapeutic activities to return to functional activities of daily living. Electronically signed by: Warren Ley, PT Please sign and return to therapist. Thank you for your referral.
--- NOTE | 2025-02-17 09:44 | MHC.PT.DC ---
[facility] [place] Office [place] Office [place] Office [address] Lyndon Garcia [address] [phone] F: [phone] F: [phone] F: [phone] F: [phone] Physical Therapy Discharge Report Diagnosis: sciatica Date of Surgery: Date of Evaluation: 10/13/24 Date of Discharge: Treatments to Date: 3 Cancellations to Date: No Shows to Date: Discharge Status: Independent with HEP Patient Elected to Stop Discharge Summary: 11/04/24: pt progressing well symptomatically. reduced TTP and pain with daily activities. we will continue to progress as tolerated. 10/21/24: pt progressing well with skilled PT. good response to stretching program. Patient is a 74 year old R handed male who presents with s/s consistent with sciatica, low back pain. He does not work, is retired and lives a fairly sedentary lifestyle. Patient past medical history includes COPD, Lumbago, GERD, and OA. Current impairments include pain, posture, flexibility, ROM, strength, activity tolerance and functional mobility. Functional limitations include decreased ability to walk, stand, transfer, bend, lift, and carry. Patient is motivated with good rehab potential. Skilled PT will address impairments and functional limitations in order to achieve goals. Electronically signed by: Warren Ley, PT Please sign and return to therapist. Thank you for your referral.
== END 2025-02-17 09:44 | disposition home or self-care (01) ==
LOC: HO.PTCHIC 13:00
PROVIDERS: PCP Internal Medicine; Visit Provider Internal Medicine
DX: M54.30 Sciatica, unspecified side (principal)
CPT/HCPCS: 97110; 97162

== ENCOUNTER 2025-01-26 09:11 | Outpatient (REF) | payer MEDICARE, SELFPAY ==
--- NOTE | ~2025-01-26 | XR_ITS ---
EXAMINATION: XR SHOULDER, LEFT CLINICAL INFORMATION: M25.512 - Pain in left shoulder COMPARISON: None available. TECHNIQUE: AP external rotation, Grashey, scapular Y, and axillary views of the left shoulder. FINDINGS: No acute cortical disruption or malalignment. Subchondral cyst formation at the acromioclavicular joint. XR/XR shoulder LT min 2V IMPRESSION: Degenerative changes, acromioclavicular joint. Electronically signed by: Melvin Franco MD 01/26/2025 10:04 AM EDT
== END 2025-01-26 09:12 | disposition home or self-care (01) ==
LOC: HO.HMGCX 09:11
PROVIDERS: PCP Internal Medicine; Visit Provider Internal Medicine
DX: M25.512 Pain in left shoulder (principal); N40.1 Benign prostatic hyperplasia with lower urinary tract symptoms; R35.0 Frequency of micturition; R35.1 Nocturia; I10 Essential (primary) hypertension
CPT/HCPCS: 73030; 99212

== ENCOUNTER 2025-01-26 09:11 | Outpatient (AMB) | payer MEDICARE, SELFPAY ==
[2025-01-26 09:16] VITALS: BP 124/78; PULSE 85; RESP 18; O2SAT 97; BMI 30.3
--- NOTE | 2025-01-26 09:18 | A.OFFPC_ITS ---
Vital Signs 01/26/25 09:16 Height 5 ft 11 in Weight 217 lb BMI 30.3 BP 124/78 Blood Pressure Location Rt brachial Position Sitting Respiration 18 Pulse 85 Pulse Source Pulse Oximeter Pulse Oximetry (%) 97 Oxygen Delivery Method Room Air Intake Visit Reasons: Shoulder pain Intake Note: Pt is here today for a sick visit. Pt c/o L shoulder pain for a month, pt also c/o dizziness. Allergies Sulfa (Sulfonamide Antibiotics) (SULFA (SULFONAMIDE ANTIBIOTICS)) Allergy (Unknown, Verified 01/26/25 09:20) does not remember sulfacetamide Allergy (Unknown, Verified 01/26/25 09:20) Unknown Medication List - Last Reconciled 01/26/25 by Jackeline Garcia MD albuterol sulfate 90 mcg/actuation 2 puffs PO QID alfuzosin ER 10 mg PO DAILY amlodipine 10 mg PO DAILY aspirin 81 mg PO DAILY atenolol 50 mg PO DAILY baclofen 10 mg PO BID famotidine 20 mg PO DAILY fenofibrate 160 mg PO DAILY finasteride 5 mg PO DAILY fluticasone propionate 50 mcg/actuation (Flonase Allergy Relief) 1 spray intranasal DAILY ipratropium bromide 2 sprays intranasal TID 30 days omeprazole 40 mg PO BID 30 days triamterene-hydrochlorothiazid 37.5-25 mg 1 tab PO DAILY Tobacco use date assessed: 10/24/24 Fall risk assessment: 1 Fall in past year Last assessed Fall Risk: 01/26/25 Dental Screening Dental Screen Date: 10/24/24 HPI HPI Comments History of Present Illness Details Pt c/o L shoulder pain for 1 month, worse with movement but also at night when changing position in bed. Patient denies any injury, weakness or numbness in left upper extremity. Patient complains of increased urinary frequency and nocturia getting worse over last few weeks. Patient denies dysuria abdominal or pelvic pain fever chills back pain hematuria. He used to take finasteride and alfuzosin but run out of the medication. [facility] Medical History (Updated 01/26/25 @ 09:46 by Jackeline Garcia MD) Bronchitis Annual physical exam Hyperlipidemia Hyperglycemia Obesity GERD (gastroesophageal reflux disease) Lumbago Impaired fasting glucose CAD (coronary artery disease) BPH (benign prostatic hyperplasia) HTN (hypertension) Surgical History No pertinent past surgical history Family History Father Alcoholism Substance use disorder Mother CHF (congestive heart failure) Brother No problems noted. Sister No problems noted. Sister No problems noted. Sister No problems noted. Sister No problems noted. Social History Housing: House Patient Tobacco Use Status: Never used Tobacco e-Cigarette/Vaping Use: Never Used service: Yes Current occupational status: retired Cognitive needs: No Hearing needs: No Vision needs: Yes Questionnaire Thrive Questionnaire Date Thrive assessed: 09/05/24 I am a: Patient What is your living situation today?: I have a steady place to live Within the past 12 months, did the food you bought not last and you didn't have the money to get more?: Never true Within the past 12 months, did you worry whether your food would run out before you got money to buy more?: Never true Do you have trouble paying for medicines?: No Do you have trouble getting transportation to medical appointments?: No Do you have trouble paying your heating and electricity bill?: No Do you have trouble taking care of your child, family member or friend?: No Do you have trouble with day-to-day activities such as bathing, preparing meals, shopping, managing finances, etc.?: No Are you currently unemployed and looking for a job?: No Are you interested in more education?: No Please select the resources that you would like help with: None Currently or been in a relationship where the following occur: No concerns reported THRIVE Score: 0 NATALIIA-7 AMB Questionnaire NATALIIA-7 Date NATALIIA - 7 assessed: 09/05/24 Feeling afraid as if something awful might happen: 0 = Not at all Source: Developed by Drs. Jaspal Calvillo, Aurora Pollard, Bassam Bailey and colleagues, with an educational keny from [employer]. Review of Systems Const All systems reviewed & are unremarkable except as noted in HPI and below Eyes Reports no additional complaints ENT Reports no additional complaints Card Reports no additional complaints Resp Reports no additional complaints GI Reports no additional complaints Reports no additional complaints Physical exam (Primary Care) Vital Signs: Last Vital Signs Pulse 85 01/26/25 09:16 Resp 18 01/26/25 09:16 BP 124/78 01/26/25 09:16 Pulse Ox 97 01/26/25 09:16 Oxygen Delivery Method Room Air 01/26/25 09:16 BMI result Body Mass Index 30.3 Tobacco/Smoking Status: Tobacco use Status Tobacco use date assessed 10/24/24 01/26/25 09:21 Patient Tobacco Use Status Never used Tobacco 01/26/25 09:21 e-Cigarette/Vaping Use Never Used 01/26/25 09:21 Thrive Assessment: Date of Thrive Assessment Date Thrive assessed 09/05/24 01/26/25 09:21 Currently or been in a relationship where the following occur: No concerns reported Const General: no acute distress HENMT Head: Yes normal to inspection Throat: Yes posterior oropharynx normal Eyes General: appearance normal, both eyes and all related structures Resp Effort & Inspection: normal respiratory effort Auscultation: clear to auscultation bilaterally Cardio Rhythm: regular rhythm Heart sounds: S1 normal heart sound present and S2 normal heart sound present Extrem Other: There is anterior and supraspinatus aspect reproducible tenderness in the left shoulder, no joint deformity or warmth. There is a slightly decreased range of motion in the left shoulder Coding Level of Care Code Est Pt Level 4 (82834) Diagnoses Shoulder pain M25.519 Benign prostatic hyperplasia with lower urinary tract symptoms N40.1 HTN (hypertension) I10 Assessment & Plan Assessment & Plan (1) Shoulder pain: Code(s): M25.519 - Pain in unspecified shoulder Plan: For chronic left shoulder pain obtain x-ray and referred to physical therapy (2) Benign prostatic hyperplasia with lower urinary tract symptoms: Code(s): N40.1 - Benign prostatic hyperplasia with lower urinary tract symptoms Category: Medical Plan: Check UA and bladder scan, restart finasteride and alfuzosin follow-up in 2 months (3) HTN (hypertension): Code(s): I10 - Essential (primary) hypertension Category: Medical Plan: Continue current medications Orders: Orders UA w Microscopic Today N40.1 - Benign prostatic hyperplasia with lower urinary tract symptoms US bladder Today N40.1 - Benign prostatic hyperplasia with lower urinary tract symptoms XR shoulder LT min 2V Today M25.512 - Pain in left shoulder Medications: New finasteride 5 mg PO DAILY 90 tabs 3RF Changed From alfuzosin ER administer after the same meal each, to replace terazosin 10 mg PO DAILY 90 tabs 1RF to replace terazosin To alfuzosin ER 10 mg PO DAILY 90 tabs 3RF Refilled omeprazole 40 mg PO BID 60 caps 3RF 30 days Discontinued atenolol Discontinued Reason: Doctor's Order 50 mg PO DAILY 90 tabs 3RF famotidine Discontinued Reason: Doctor's Order 20 mg PO DAILY 90 tabs 3RF baclofen Discontinued Reason: Doctor's Order 10 mg PO BID 60 tabs 0RF
--- OUTSIDE RECORDS SUMMARY | 2025-01-26 09:48 | XMS_ITS | Patient Health Record ---
Author Organization [facility] Address [address] [place] [address] Care Team Providers Care Blow Torch Burner Name Role Phone Jackeline Garcia MD Primary Care Provider Chaz Neri Unavailable [phone] Allergies Allergen (clinical drug ingredient) Drug/Non Drug [...] Date Coverage End Date [employer] Medicare Adv-[id number] [address] [address] [place] [address] [id number] Kenan Castañeda Self - patient is the insured Medical (General) History Medical History History ICD Code Benign prostatic hyperplasia (BPH) chronic bronchitis CAD ( Coronary Artery Disease) COPD Gastroesophageal reflux disease (GERD) Hypertension Hyperglycemia Hyperlipidemia Impaired Fasting Glucose Lumbargo Obesity Surgical History Surgery Date(Month/Year)
== END 2025-01-26 09:57 | disposition home or self-care (01) ==
LOC: HO.HMCC 09:12
PROVIDERS: PCP Internal Medicine; Visit Provider Internal Medicine
DX: M25.519 Pain in unspecified shoulder (principal); N40.1 Benign prostatic hyperplasia with lower urinary tract symptoms; I10 Essential (primary) hypertension

== ENCOUNTER → 2025-01-26 09:52 | Outpatient (BNV) | payer MEDICARE, SELFPAY | PROVIDERS: PCP Internal Medicine; Visit Provider Radiology Diagnostic Radiology | DX: M19.012 Primary osteoarthritis, left shoulder (principal) | CPT/HCPCS: 73030 ==

== ENCOUNTER 2025-02-24 14:30 | Outpatient (REF) | payer MEDICARE, SELFPAY ==
--- NOTE | ~2025-02-24 | US_ITS ---
EXAMINATION: US BLADDER HISTORY: N40.1 - Benign prostatic hyperplasia with lower urinary tract symptoms COMPARISON: Comparison is made with the prior retroperitoneal ultrasound dated 10/30/2022. FINDINGS: Sonographic examination of the urinary bladder was performed before and after voiding. Before voiding, the urinary bladder measured 8.9 x 11.5 x 9.3, for an estimated volume of 502 mL. After voiding, the urinary bladder measured 9.1 x 11.0 x 9.4, for an estimated volume of 489 mL. There is mild bladder wall trabeculation and a small bladder diverticulum. Bilateral ureteral jets are identified. The prostate measures 4.1 x 3.3 x 5.1 cm, for an estimated volume of 36.8 mL. US/US bladder IMPRESSION: 1. Bladder wall trabeculation a small bladder diverticulum. 2. No significant bladder emptying is identified, with a post void bladder residual of 489 mL. 3. Prostate volume of 36.8 mL. Electronically signed by: Jaspal Burch MD 02/24/2025 02:55 PM EDT
--- OUTSIDE RECORDS SUMMARY | 2025-02-24 14:32 | XMS_ITS | Patient Health Record ---
Author Organization [facility] Address [address] [place] [address] Care Team Providers Care Technology Applications Teacher Name Role Phone Jackeline Garcia MD Primary Care Provider Chaz Neri Unavailable [phone] Allergies Allergen (clinical drug ingredient) Drug/Non Drug [...] Date Coverage End Date [employer] Medicare Adv-[id number] [address] [address] [place] [address] [id number] Kenan Castañeda Self - patient is the insured Medical (General) History Medical History History ICD Code Benign prostatic hyperplasia (BPH) chronic bronchitis CAD ( Coronary Artery Disease) COPD Gastroesophageal reflux disease (GERD) Hypertension Hyperglycemia Hyperlipidemia Impaired Fasting Glucose Lumbargo Obesity Surgical History Surgery Date(Month/Year)
== END 2025-02-24 14:31 | disposition home or self-care (01) ==
LOC: HO.HMGCX 14:30
PROVIDERS: PCP Internal Medicine; Visit Provider Internal Medicine
DX: N40.1 Benign prostatic hyperplasia with lower urinary tract symptoms (principal)
CPT/HCPCS: 76857

== ENCOUNTER → 2025-02-24 14:32 | Outpatient (BNV) | payer MEDICARE, SELFPAY | PROVIDERS: PCP Internal Medicine; Visit Provider Radiology Diagnostic Radiology | DX: N40.1 Benign prostatic hyperplasia with lower urinary tract symptoms (principal) | CPT/HCPCS: 76857 ==

== ENCOUNTER → 2025-03-19 19:47 | Outpatient (BNV) | payer MEDICARE, SELFPAY | PROVIDERS: PCP Internal Medicine; Visit Provider Radiology Diagnostic Radiology | DX: M75.122 Complete rotator cuff tear or rupture of left shoulder, not specified as traumatic (principal) | CPT/HCPCS: 73221 ==

== ENCOUNTER 2025-03-19 19:48 | Outpatient (REF) | payer MEDICARE, SELFPAY ==
--- NOTE | ~2025-03-19 | MR_ITS ---
CLINICAL HISTORY: S46.002A - Unspecified injury of muscle(s) and tendon(s) of the rotator ... Exam: MRI of the left shoulder without intravenous contrast. Comparison: Radiographs January 26, 2025. Findings: Full-thickness tear of the anterior distal fibers of the supraspinatus tendon of the rotator cuff is identified. Fluid gap measures 12 mm medial to lateral by 18 mm anterior to posterior. There severe tendinopathy of the more proximal supraspinatus tendon. [id number] tendinopathy of the distal infraspinatus tendon without tear. Moderate subscapularis tendinopathy. Teres minor is intact. No muscle atrophy is seen at this time. Mild degenerative change of the glenohumeral joint. No discrete labral tear identified. The tendon of the long head of the biceps is appropriately positioned within the bicipital groove. There is increased fluid within the biceps tendon sheath. Type 2 acromion. Moderate degenerative change of the AC joint. Large amount of fluid within the subacromial/subdeltoid space with free aggressive joint fluid through the full-thickness rotator cuff tear. Impression: 1. Full-thickness supraspinatus tendon tear with extensive supraspinatus tendinopathy. 2. Less pronounced tendinopathy of the infraspinatus and subscapularis tendons. 3. Biceps tenosynovitis. 4. Glenohumeral joint and AC joint DJD. This document has been electronically signed by: Everardo Salmeron MD on 03/22/2025 08:39:18
== END 2025-03-19 19:49 | disposition home or self-care (01) ==
LOC: HO.MRI 19:48
PROVIDERS: PCP Internal Medicine; Visit Provider Internal Medicine
DX: S46.002A Unspecified injury of muscle(s) and tendon(s) of the rotator cuff of left shoulder, initial encounter (principal)
CPT/HCPCS: 73221

== ENCOUNTER 2025-04-24 12:24 | Outpatient (AMB) | payer MEDICARE, SELFPAY ==
--- NOTE | 2025-04-24 12:33 | A.OFFPC_ITS ---
Vital Signs 04/24/25 12:34 Height 5 ft 11 in Weight 218 lb BMI 30.4 BP 128/72 Blood Pressure Location Lt brachial Position Sitting Pulse 86 Pulse Source Pulse Oximeter Temp 98.0 F Temp Source Oral Pulse Oximetry (%) 97 Intake Visit Reasons: 6m follow up Memory Care Program Resident Required: No Accompanied by: Self / Same As Patient Allergies Sulfa (Sulfonamide Antibiotics) (SULFA (SULFONAMIDE ANTIBIOTICS)) Allergy (Unknown, Verified 04/24/25 12:34) does not remember sulfacetamide Allergy (Unknown, Verified 04/24/25 12:34) Unknown Medication List - Last Reconciled 04/24/25 by Jackeline Garcia MD albuterol sulfate 90 mcg/actuation 2 puffs PO QID alfuzosin ER 10 mg PO DAILY amlodipine 10 mg PO DAILY aspirin 81 mg PO DAILY fenofibrate 160 mg PO DAILY finasteride 5 mg PO DAILY fluticasone propionate 50 mcg/actuation (Flonase Allergy Relief) 1 spray intranasal DAILY ipratropium bromide 2 sprays intranasal TID 30 days omeprazole 40 mg PO BID 30 days triamterene-hydrochlorothiazid 37.5-25 mg 1 tab PO DAILY Tobacco use date assessed: 10/24/24 Fall risk assessment: No Falls in past year Last assessed Fall Risk: 04/24/25 Dental Screening Dental Screen Date: 10/24/24 HPI 6m follow up HPI Details Patient presents for the follow-up. He complains of persistent increased urinary frequency at night getting up at least 4 times at night. He has been taking alfuzosin and finasteride for 2 months. Patient denies dysuria hematuria abdominal or pelvic pain fever chills nausea vomiting. Patient is waiting for an appointment with Urology. Hypertension and hyperlipidemia are controlled on current medications. [facility] Medical History Bronchitis Annual physical exam Hyperlipidemia Hyperglycemia Obesity GERD (gastroesophageal reflux disease) Lumbago Impaired fasting glucose CAD (coronary artery disease) BPH (benign prostatic hyperplasia) HTN (hypertension) Surgical History No pertinent past surgical history Family History Father Alcoholism Substance use disorder Mother CHF (congestive heart failure) Brother No problems noted. Sister No problems noted. Sister No problems noted. Sister No problems noted. Sister No problems noted. Social History Housing: House Patient Tobacco Use Status: Never used Tobacco e-Cigarette/Vaping Use: Never Used service: Yes Current occupational status: retired Cognitive needs: No Hearing needs: No Vision needs: Yes Questionnaire Thrive Questionnaire Date Thrive assessed: 09/05/24 NATALIIA-7 AMB Questionnaire NATALIIA-7 Date NATALIIA - 7 assessed: 09/05/24 Source: Developed by Drs. Jaspal Calvillo, Aurora Pollard, Bassam Bailey and colleagues, with an educational keny from [employer]. Review of Systems Const All systems reviewed & are unremarkable except as noted in HPI and below ENT Reports no additional complaints Resp Reports no additional complaints GI Reports no additional complaints Reports no additional complaints Physical exam (Primary Care) Vital Signs: Last Vital Signs Temp 98.0 F 04/24/25 12:34 Pulse 86 04/24/25 12:34 BP 128/72 04/24/25 12:34 Pulse Ox 97 04/24/25 12:34 BMI result Body Mass Index 30.4 Tobacco/Smoking Status: Tobacco use Status Tobacco use date assessed 10/24/24 04/24/25 12:36 Patient Tobacco Use Status Never used Tobacco 04/24/25 12:36 e-Cigarette/Vaping Use Never Used 04/24/25 12:36 Thrive Assessment: Date of Thrive Assessment Date Thrive assessed 09/05/24 04/24/25 12:36 Const General: no acute distress HENMT Head: Yes normal to inspection Throat: Yes posterior oropharynx normal Resp Effort & Inspection: normal respiratory effort Auscultation: clear to auscultation bilaterally Cardio Rhythm: regular rhythm Heart sounds: S1 normal heart sound present and S2 normal heart sound present GI Inspection: Yes normal to inspection Palpation (GI): Soft to palpation Percussion: Yes normal to percussion Auscultation: normal bowel sounds Coding Level of Care Code Est Pt Level 4 (71419) Diagnoses BPH (benign prostatic hyperplasia) N40.0 HTN (hypertension) I10 Hyperlipidemia E78.5 Assessment & Plan Assessment & Plan (1) BPH (benign prostatic hyperplasia): Code(s): N40.0 - Benign prostatic hyperplasia without lower urinary tract symptoms Category: Medical Plan: Continue current medications check bladder scan for urinary retention, referral to urology (2) HTN (hypertension): Code(s): I10 - Essential (primary) hypertension Category: Medical Plan: Continue current medications, replacing Dyazide with ACEI discussed with the patient but he does not want to change his medications (3) Hyperlipidemia: Comment: Crestor caused myalgia Code(s): E78.5 - Hyperlipidemia, unspecified Category: Medical Plan: Continue fenofibrate Orders: Orders US bladder Today N40.0 - Benign prostatic hyperplasia without lower urinary tract symptoms UA w Microscopic Today N40.0 - Benign prostatic hyperplasia without lower urinary tract symptoms, N40.1 - Benign prostatic hyperplasia with lower urinary tract symptoms Urine Culture Today N40.1 - Benign prostatic hyperplasia with lower urinary tract symptoms Comprehensive Met. Panel Today N40.0 - Benign prostatic hyperplasia without lower urinary tract symptoms, N40.1 - Benign prostatic hyperplasia with lower urinary tract symptoms Complete Blood Count Auto Diff Today N40.0 - Benign prostatic hyperplasia without lower urinary tract symptoms, N40.1 - Benign prostatic hyperplasia with lower urinary tract symptoms Referrals Urology Referral N40.0 - Benign prostatic hyperplasia without lower urinary tract symptoms, N40.1 - Benign prostatic hyperplasia with lower urinary tract symptoms
[2025-04-24 12:34] VITALS: BP 128/72; PULSE 86; TEMP 36.7; O2SAT 97; BMI 30.4
--- OUTSIDE RECORDS SUMMARY | 2025-04-24 17:08 | XMS_ITS | Patient Health Record ---
Author Organization [facility] Address [address] [place] [address] Care Team Providers Care College Sports Assistant Name Role Phone Jackeline Garcia MD Primary Care Provider Chaz Neri Unavailable [phone] Allergies Allergen (clinical drug ingredient) Drug/Non Drug [...] Date Coverage End Date [employer] Medicare Adv-[id number] [address] [address] [place] [address] [id number] Kenan Castañeda Self - patient is the insured Medical (General) History Medical History History ICD Code Benign prostatic hyperplasia (BPH) chronic bronchitis CAD ( Coronary Artery Disease) COPD Gastroesophageal reflux disease (GERD) Hypertension Hyperglycemia Hyperlipidemia Impaired Fasting Glucose Lumbargo Obesity Surgical History Surgery Date(Month/Year)
== END 2025-04-24 13:15 | disposition home or self-care (01) ==
LOC: HO.HMCC 12:24
PROVIDERS: PCP Internal Medicine; Visit Provider Internal Medicine
DX: N40.0 Benign prostatic hyperplasia without lower urinary tract symptoms (principal); I10 Essential (primary) hypertension; E78.5 Hyperlipidemia, unspecified

== ENCOUNTER 2025-04-24 13:19 | Outpatient (REF) | payer MEDICARE, SELFPAY ==
--- NOTE | ~2025-04-24 | US_ITS ---
EXAMINATION: US PELVIS LIMITED (BLADDER) CLINICAL INFORMATION: Benign prostate hyperplasia without urinary tract symptoms. .. COMPARISON: February 24, 2025 TECHNIQUE: Real-time imaging of the bladder. FINDINGS: BLADDER: Fluid-filled. Bilateral ureteral jets are demonstrated. Prevoid bladder volume is 795 mL. Postvoid bladder volume is 762 mL. Prostate gland measures 4.8 x 3.7 x 4.3 cm and volume: 40 cc. US/US bladder IMPRESSION: 762 cc residual urine in a post void image. Prostate gland volume: 40 cc.. Electronically signed by: Melvin Franco MD 04/24/2025 01:41 PM EDT
== END 2025-04-24 13:20 | disposition home or self-care (01) ==
LOC: HO.HMGCX 13:19
PROVIDERS: PCP Internal Medicine; Visit Provider Internal Medicine
DX: N40.0 Benign prostatic hyperplasia without lower urinary tract symptoms (principal); I10 Essential (primary) hypertension; E78.5 Hyperlipidemia, unspecified
CPT/HCPCS: 76857; 99212

== ENCOUNTER → 2025-04-24 13:20 | Outpatient (BNV) | payer MEDICARE, SELFPAY | PROVIDERS: PCP Internal Medicine; Visit Provider Radiology Diagnostic Radiology | DX: N40.0 Benign prostatic hyperplasia without lower urinary tract symptoms (principal) | CPT/HCPCS: 76857 ==

== ENCOUNTER 2025-05-03 13:12 | Outpatient (REF) | payer MEDICARE, SELFPAY ==
--- OUTSIDE RECORDS SUMMARY | 2025-05-03 15:35 | XMS_ITS | Patient Health Record ---
Author Organization [facility] Address [address] [place] [address] Care Team Providers Care Lead Software Development Engineer Name Role Phone Jackeline Garcia MD Primary Care Provider Chaz Neri Unavailable [phone] Allergies Allergen (clinical drug ingredient) Drug/Non Drug [...] Date Coverage End Date [employer] Medicare Adv-[id number] [address] [address] [place] [address] [id number] Kenan Castañeda Self - patient is the insured Medical (General) History Medical History History ICD Code Benign prostatic hyperplasia (BPH) chronic bronchitis CAD ( Coronary Artery Disease) COPD Gastroesophageal reflux disease (GERD) Hypertension Hyperglycemia Hyperlipidemia Impaired Fasting Glucose Lumbargo Obesity Surgical History Surgery Date(Month/Year)
[2025-05-03 16:04] LABS: MANUAL DIFF FLAG NO
[2025-05-03 16:13] LABS: Appearance Urine Turbid; Glucose Urine UA Negative (Negative); PH 5.5 (5.0-9.0); Specific Gravity - Urine 1.015 (1.005-1.025); UMIC TRIGGER UA YES
[2025-05-03 16:20] LABS: Hematocrit 41.3 % (42.0-52.0); Hemoglobin 13.9 g/dl (14.0-18.0); Imm Gran Abs Auto 0.06 X10*3/uL (0.00-0.03); Imm Gran Pct Auto 0.5 % (0.0-0.4); Lymphocytes Absolute Auto 1.7 X10*3/uL (1.2-4.9); Mean Corpuscular HGB Conc 33.7 g/dl (31.0-36.0); Mean Corpuscular Hemoglobin 29.8 pg (27.0-33.0); Mean Corpuscular Volume 88.4 fL (80.0-98.0); NRBC Abs Auto 0.000 X10*3/uL (0.0-0.012); NRBC Pct Auto 0.0 /100WBC (0.0-0.2); Platelet Count 193 X10*3/uL (160-400); Red Blood Count 4.67 X10*6/uL (4.60-5.80); White Blood Count 11.3 X10*3/uL (4.8-10.8)
[2025-05-03 18:22] LABS: Alanine Aminotransferase 26 U/L (0-40); Albumin Level 4.0 g/dL (3.5-5.0); Alkaline Phosphatase 80 U/L (39-117); Anion Gap 12 (12-20); Aspartate Amino Transferase 28 U/L (5-37); Blood Urea Nitrogen 24 mg/dL (9-16); Calcium 9.2 mg/dL (8.4-10.2); Carbon Dioxide 32 mmol/L (22-29); Chloride 98 mmol/L (96-108); Estimated Glomerular Filt Rate 45; Potassium 2.8 mmol/L (3.3-5.1); Sodium 139 mmol/L (135-145); Total Protein 7.3 g/dL (6.5-8.0)
== END 2025-05-03 13:13 | disposition home or self-care (01) ==
LOC: HO.HMGCLDS 13:12
PROVIDERS: PCP Internal Medicine; Visit Provider Internal Medicine
DX: N40.1 Benign prostatic hyperplasia with lower urinary tract symptoms (principal); R30.0 Dysuria
CPT/HCPCS: 36415; 80053; 81001; 85025; 87086; 87088; 87186

== ENCOUNTER 2025-05-05 10:02 | Outpatient (AMB) | payer MEDICARE, SELFPAY ==
[2025-05-05 10:07] VITALS: BP 124/60; PULSE 90; TEMP 36.7; O2SAT 97; BMI 30.4
--- NOTE | 2025-05-05 10:07 | AM.OFFWIN_ITS ---
Intake Vital Signs 05/05/25 10:07 Height 5 ft 11 in Weight 218 lb BMI 30.4 BP 124/60 Blood Pressure Location Lt brachial Position Sitting Pulse 90 Pulse Source Pulse Oximeter Temp 98.0 F Temp Source Oral Pulse Oximetry (%) 97 Oxygen Delivery Method Room Air Intake Visit Reasons: EP Dislocated right shoulder Intake Note: pt presents with right shoulder pain and decreased ROM after lifting his yesterday Patient Tobacco Use Status: Never used Tobacco Allergies Sulfa (Sulfonamide Antibiotics) (SULFA (SULFONAMIDE ANTIBIOTICS)) Allergy (Unknown, Verified 05/05/25 10:10) does not remember Medication List - Last Reconciled 05/05/25 by Neptali Liu MD albuterol sulfate 90 mcg/actuation 2 puffs PO QID alfuzosin ER 10 mg PO DAILY amlodipine 10 mg PO DAILY aspirin 81 mg PO DAILY ciprofloxacin HCl 250 mg PO BID 5 days fenofibrate 160 mg PO DAILY finasteride 5 mg PO DAILY fluticasone propionate 50 mcg/actuation (Flonase Allergy Relief) 1 spray intranasal DAILY ipratropium bromide 2 sprays intranasal TID 30 days omeprazole 40 mg PO BID 30 days potassium chloride ER (K-Tab) 2 tabl qd for 2 days then 1 tabl orally daily; triamterene-hydrochlorothiazid 37.5-25 mg 1 tab PO DAILY Do you need a note to return to daycare/school/sports/work: No HPI EP Dislocated right shoulder HPI Details History of Present Illness The patient is a 74 year old male presenting with a suspected shoulder dislocation. Suspected Shoulder Dislocation: - The patient experienced a shoulder inj ury while attempting to lift his from the floor after she fell. - He reported significant pain in the sh oulder region, initially suspecting a dislocation. - The incident occurred recently, and th e patient described acute pain that interferes with movement. - On further discussion, the patient rep orted that the pain was primarily located in the back, suggesting a muscle strain instead of a dislocation. - The trapezius muscle strain was identi fied as the source of discomfort. - Denied pain when pressure was applied during the examination, except in the back area. - Factors such as massage, mruj-bib-rnbt ter sprays like BioFreeze, and hot showers were suggested to relieve symptoms. - The patient anticipated the pain worse eric within 24 to 48 hours before improvement. Medical History: - Kidney function slightly compromised w ith ongoing urinary problems, specifically bladder retention. Medications: - Patient is taking potassium supplement s. - Allergic to sulfa Problem List - Trapezius Muscle Strain - Slightly Compromised Kidney Function Patient Instructions - Use Tylenol, specifically Tylenol Arth ritis, for pain management. - Apply rnbr-qcu-qsbyxwt cold sprays lik e BioFreeze to numb the area. - Consider hot showers for muscle relaxa tion. - Expect increased pain over the next 24 -48 hours with improvement following thereafter. - Take muscle relaxers at night to help with sleep. 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 Sister No problems noted. Sister No problems noted. Sister No problems noted. Sister No problems noted. Social History Housing: House Patient Tobacco Use Status: Never used Tobacco e-Cigarette/Vaping Use: Never Used service: Yes Current occupational status: retired Cognitive needs: No Hearing needs: No Vision needs: Yes Physical Exam Vital Signs: Last Vital Signs Temp 98.0 F 05/05/25 10:07 Pulse 90 05/05/25 10:07 BP 124/60 09/26/25 10:07 Pulse Ox 97 05/05/25 10:07 Oxygen Delivery Method Room Air 05/05/25 10:07 BMI result Body Mass Index 30.4 Assessment & Plan Assessment & Plan (1) Strain of right trapezius muscle: Code(s): S46.811A - Strain of other muscles, fascia and tendons at shoulder and upper arm level, right arm, initial encounter Qualifiers: Encounter type: initial encounter Qualified Code(s): S46.811A - Strain of other muscles, fascia and tendons at shoulder and upper arm level, right arm, initial encounter Plan History of Present Illness The patient is a 74 year old male presenting with a suspected shoulder dislocation. Suspected Shoulder Dislocation: - The patient experienced a shoulder injury while attempting to lift his from the floor after she fell. - He reported significant pain in the shoulder region, initially suspecting a dislocation. - The incident occurred recently, and the patient described acute pain that interferes with movement. - On further discussion, the patient reported that the pain was primarily located in the back, suggesting a muscle strain instead of a dislocation. - The trapezius muscle strain was identified as the source of discomfort. - Denied pain when pressure was applied during the examination, except in the back area. - Factors such as massage, gnpb-cxm-kolscww sprays like BioFreeze, and hot sh owers were suggested to relieve symptoms. - The patient anticipated the pain worsening within 24 to 48 hours before improvement. Medical History: - Kidney function slightly compromised with ongoing urinary problems, specifically bladder retention. Medications: - Patient is taking potassium supplements. - Allergic to sulfa Problem List - Trapezius Muscle Strain - Slightly Compromised Kidney Function Patient Instructions - Use Tylenol, specifically Tylenol Arthritis, for pain management. - Apply rdny-aqv-tjgeadp cold sprays like BioFreeze to numb the area. - Consider hot showers for muscle relaxation. - Expect increased pain over the next 24-48 hours with improvement following thereafter. - Take muscle relaxers at night to help with sleep. Coding Level of Care Code Est Pt Level 3 (95578) Diagnoses Strain of right trapezius muscle, initial encounter S46.811A Encounter type: initial encounter
--- OUTSIDE RECORDS SUMMARY | 2025-05-05 11:12 | XMS_ITS | Patient Health Record ---
[facility] Address [address] [place] [address] Care Team Providers Care Clerk Funeral Detail Name Role Phone Jackeline Garcia MD Primary Care Provider Chaz Neri Unavailable [phone] Allergies Allergen (clinical drug ingredient) Drug/Non Drug [...] Date Coverage End Date [employer] Medicare [id number] [address] [address] [place] [address] [id number] Kenan Castañeda Self - patient is the insured Medical (General) History Medical History History ICD Code Benign prostatic hyperplasia (BPH) chronic bronchitis CAD ( Coronary Artery Disease) COPD Gastroesophageal reflux disease (GERD) Hypertension Hyperglycemia Hyperlipidemia Impaired Fasting Glucose Lumbargo Obesity Surgical History Surgery Date(Month/Year)
== END 2025-05-05 10:26 | disposition home or self-care (01) ==
PROVIDERS: PCP Internal Medicine; Visit Provider Internal Medicine
DX: S46.811A Strain of other muscles, fascia and tendons at shoulder and upper arm level, right arm, initial encounter (principal)

== ENCOUNTER → 2025-05-05 10:02 | Outpatient (BNVA) | payer MEDICARE, SELFPAY | PROVIDERS: PCP Internal Medicine; Visit Provider Internal Medicine | DX: S46.811A Strain of other muscles, fascia and tendons at shoulder and upper arm level, right arm, initial encounter (principal); X50.0XXA Overexertion from strenuous movement or load, initial encounter; Y93.9 Activity, unspecified; Y92.9 Unspecified place or not applicable; Y99.9 Unspecified external cause status | CPT/HCPCS: 99212 ==

== ENCOUNTER 2025-05-06 10:38 | Outpatient (REF) | payer MEDICARE, SELFPAY ==
--- OUTSIDE RECORDS SUMMARY | 2025-05-06 10:41 | XMS_ITS | Patient Health Record ---
[facility] Address [address] [place] [address] Care Team Providers Care Research Editor Name Role Phone Jackeline Garcia MD Primary Care Provider Chaz Neri Unavailable [phone] Allergies Allergen (clinical drug ingredient) Drug/Non Drug [...] Date Coverage End Date [employer] Medicare [id number] [address] [address] [place] [address] [id number] Kenan Castañeda Self - patient is the insured Medical (General) History Medical History History ICD Code Benign prostatic hyperplasia (BPH) chronic bronchitis CAD ( Coronary Artery Disease) COPD Gastroesophageal reflux disease (GERD) Hypertension Hyperglycemia Hyperlipidemia Impaired Fasting Glucose Lumbargo Obesity Surgical History Surgery Date(Month/Year)
[2025-05-06 14:02] LABS: Anion Gap 13 (12-20); Blood Urea Nitrogen 25 mg/dL (9-16); Calcium 9.6 mg/dL (8.4-10.2); Carbon Dioxide 30 mmol/L (22-29); Chloride 101 mmol/L (96-108); Estimated Glomerular Filt Rate 58; Potassium 3.2 mmol/L (3.3-5.1); Sodium 141 mmol/L (135-145)
== END 2025-05-06 10:39 | disposition home or self-care (01) ==
LOC: HO.HMGCLDS 10:38
PROVIDERS: PCP Internal Medicine; Visit Provider Internal Medicine
DX: E87.6 Hypokalemia (principal)
CPT/HCPCS: 36415; 80048

== ENCOUNTER 2025-05-17 17:10 | Emergency (ER) | payer MEDICARE, SELFPAY ==
[2025-05-17 17:27] VITALS: BP 150/80; PULSE 105; RESP 16; TEMP 36.5; O2SAT 95; BMI 30.2
--- NOTE | 2025-05-17 17:30 | ED.GENADULT ---
HPI - General Adult General Chief complaint: Urogenital-Male Stated complaint: difficulty urinating Related Data Home Medications ?Medication ?Instructions ?Recorded ?Confirmed aspirin 81 mg tablet,delayed 81 mg PO DAILY 07/17/20 05/05/25 release Previous Rx's ?Medication ?Instructions ?Recorded albuterol sulfate 90 mcg/actuation 2 puff PO QID #8.5 grams 07/10/21 aerosol inhaler ipratropium bromide 42 mcg (0.06 2 spray intranasal TID 30 days #15 02/20/ %) nasal spray mL fluticasone propionate 50 1 spray intranasal DAILY #16 grams 07/22/24 mcg/actuation nasal spray,suspension (Flonase Allergy Relief) amlodipine 10 mg tablet 10 mg PO DAILY #90 tabs 09/29/24 triamterene 37.5 1 tab PO DAILY #90 tabs 12/23/24 mg-hydrochlorothiazide 25 mg tablet alfuzosin 10 mg tablet,extended 10 mg PO DAILY #90 tabs 01/26/25 release 24 hr finasteride 5 mg tablet 5 mg PO DAILY #90 tabs 01/26/25 fenofibrate 160 mg tablet 160 mg PO DAILY #90 tabs 02/17/25 omeprazole 40 mg capsule,delayed 40 mg PO BID 30 days #60 caps 04/12/25 release ciprofloxacin HCl 250 mg tablet 250 mg PO BID 5 days #10 tabs 05/03/25 potassium chloride 20 mEq See Rx Instructions PO DAILY #60 05/14/25 tablet,extended release (K-Tab) tabs Allergies Allergy/AdvReac Type Severity Reaction Status Date / Time Sulfa (Sulfonamide Allergy Unknown does not Verified 05/17/25 17:33 Antibiotics) (SULFA remember (SULFONAMIDE ANTIBIOTICS)) [facility] Past Medical History Medical History Bronchitis Annual physical exam Hyperlipidemia Hyperglycemia Obesity GERD (gastroesophageal reflux disease) Lumbago Impaired fasting glucose CAD (coronary artery disease) BPH (benign prostatic hyperplasia) HTN (hypertension) Surgical History No pertinent past surgical history Family History Family History Father Alcoholism Substance use disorder Mother CHF (congestive heart failure) Brother No problems noted. Sister No problems noted. Sister No problems noted. Sister No problems noted. Sister No problems noted. Social History Social History Housing: House Patient Tobacco Use Status: Never used Tobacco e-Cigarette/Vaping Use: Never Used service: Yes Current occupational status: retired Cognitive needs: No Hearing needs: No Vision needs: Yes Physical Exam ED Vital Signs: BMI result Body Mass Index 30.2 Course Course Course Narrative: This is a rapid medical exam performed by Candelario Grover NP: Additional HPI, ROS, PE not included below will be deferred to primary provider. Patient is a 74-year-old male with history of recurrent UTIs presenting to the emergency department with complaint of urinary urgency and frequency. States he currently feels like he needs to go but is unable to urinate. Last urinated A small amount earlier today. Plan: UA, bladder scan Patient left the emergency department before myself or any of the other clinicians could review or explain physical exam findings, test results, need or lack there of for additional testing, treatment options, or a treatment plan. Final urine culture without evidence of infection. Medical Decision Making Lab Data 05/17/25 17:43 05/17/25 17:43 Labs: Lab Results 05/17/25 05/17/25 Range/Units 17:43 18:33 WBC 10.6 (4.8-10.8) X10*3/uL RBC 4.96 (4.60-5.80) X10*6/uL Hgb 14.8 (14.0-18.0) g/dl Hct 43.9 (42.0-52.0) % MCV 88.5 (80.0-98.0) fL MCH 29.8 (27.0-33.0) pg MCHC 33.7 (31.0-36.0) g/dl RDW 13.2 (11.0-16.0) % Plt Count 221 (160-400) X10*3/uL MPV 11.3 (9.4-12.4) fL Immature Gran % (Auto) 0.5 H (0.0-0.4) % Neut % (Auto) 70.5 (45-73) % Lymph % (Auto) 15.4 L (20-40) % [place] % (Auto) 6.1 (2-11) % Eos % (Auto) 6.6 H (0-4) % Baso % (Auto) 0.9 (0-2) % Lymph # (Auto) 1.6 (1.2-4.9) X10*3/uL [place] # (Auto) 0.7 (0.1-1.2) X10*3/uL Eos # (Auto) 0.7 H (0.0-0.4) X10*3/uL Baso # (Auto) 0.1 (0.0-0.2) X10*3/uL Abs Immat Gran (auto) 0.05 H (0.00-0.03) X10*3/uL Absolute Neuts (auto) 7.5 (2.0-8.3) x10*3/uL Absolute Nucleated RBC 0.000 (0.0-0.012) X10*3/uL Nucleated RBC % (auto) 0.0 (0.0-0.2) /100WBC Sodium 141 (135-145) mmol/L Potassium 3.4 (3.3-5.1) mmol/L Chloride 106 (96-108) mmol/L Carbon Dioxide 28 (22-29) mmol/L Anion Gap 10 L (12-20) BUN 27 H (9-16) mg/dL Creatinine 1.44 H (0.5-1.4) mg/dL Estim Creat Clear Calc 53.7 Estimated GFR 48 Random Glucose 113 (60-115) mg/dL Calcium 9.6 (8.4-10.2) mg/dL Total Bilirubin 0.4 (0.0-1.0) mg/dL AST 27 (5-37) U/L ALT 25 (0-40) U/L Alkaline Phosphatase 76 (39-117) U/L Total Protein 7.5 (6.5-8.0) g/dL Albumin 4.2 (3.5-5.0) g/dL Urine Color RED Urine Appearance Turbid Urine pH 6.5 (5.0-9.0) Ur Specific Tucker 1.015 (1.005-1.025) Urine Protein See Note (Neg-Trace) mg/dL Urine Glucose (UA) Negative (Negative) mg/dL Urine Ketones See Note (Negative) mg/dL Urine Blood Large (3+) H (Negative) Urine Nitrite See Note (Negative) Ur Leukocyte Esterase See Note (Negative) Urine RBC >20 H (0-2) /HPF Urine WBC >50 H (0-5) /HPF Ur Squamous Epith Cells 0-2 (0-2) /HPF Urine Bacteria Trace (None Seen) Hyaline Casts 3-5 (0-2) /LPF Discharge Plan Discharge Clinical Impression: Urinary hesitancy Patient Disposition: Left W/O Completing Treatment Prescriptions: No Action albuterol sulfate 90 mcg/actuation HFA aerosol inhaler 2 puff PO QID Qty: 8.5 6RF fluticasone propionate [Flonase Allergy Relief] 50 mcg/actuation spray,suspension 1 spray intranasal DAILY Qty: 16 1RF Rx Instructions: administer into each nostril amlodipine 10 mg tablet 10 mg PO DAILY Qty: 90 3RF triamterene-hydrochlorothiazid 37.5-25 mg tablet 1 tab PO DAILY Qty: 90 3RF fenofibrate 160 mg tablet 160 mg PO DAILY Qty: 90 3RF omeprazole 40 mg capsule,delayed release(DR/EC) 40 mg PO BID 30 Days Qty: 60 3RF ciprofloxacin HCl 250 mg tablet 250 mg PO BID 5 Days Qty: 10 0RF potassium chloride [K-Tab] 20 mEq tablet extended release See Rx Instructions PO DAILY Qty: 60 1RF Rx Instructions: 2 tabl qd aspirin 81 mg tablet,delayed release (DR/EC) 81 mg PO DAILY ipratropium bromide 42 mcg (0.06 %) spray,non-aerosol 2 spray intranasal TID 30 Days Qty: 15 1RF Rx Instructions: administer into each nostril alfuzosin 10 mg tablet extended release 24 hr 10 mg PO DAILY Qty: 90 3RF finasteride 5 mg tablet 5 mg PO DAILY Qty: 90 3RF Discharge Date/Time: 05/17/25 20:51
[2025-05-17 17:49] LABS: MANUAL DIFF FLAG NO
[2025-05-17 17:53] LABS: Hematocrit 43.9 % (42.0-52.0); Hemoglobin 14.8 g/dl (14.0-18.0); Imm Gran Abs Auto 0.05 X10*3/uL (0.00-0.03); Imm Gran Pct Auto 0.5 % (0.0-0.4); Lymphocytes Absolute Auto 1.6 X10*3/uL (1.2-4.9); Mean Corpuscular HGB Conc 33.7 g/dl (31.0-36.0); Mean Corpuscular Hemoglobin 29.8 pg (27.0-33.0); Mean Corpuscular Volume 88.5 fL (80.0-98.0); NRBC Abs Auto 0.000 X10*3/uL (0.0-0.012); NRBC Pct Auto 0.0 /100WBC (0.0-0.2); Platelet Count 221 X10*3/uL (160-400); Red Blood Count 4.96 X10*6/uL (4.60-5.80); White Blood Count 10.6 X10*3/uL (4.8-10.8)
[2025-05-17 18:06] LABS: Alanine Aminotransferase 25 U/L (0-40); Albumin Level 4.2 g/dL (3.5-5.0); Alkaline Phosphatase 76 U/L (39-117); Anion Gap 10 (12-20); Aspartate Amino Transferase 27 U/L (5-37); Blood Urea Nitrogen 27 mg/dL (9-16); Calcium 9.6 mg/dL (8.4-10.2); Carbon Dioxide 28 mmol/L (22-29); Chloride 106 mmol/L (96-108); Creatinine Clr Calc Pharmacy 53.7; Estimated Glomerular Filt Rate 48; Potassium 3.4 mmol/L (3.3-5.1); Sodium 141 mmol/L (135-145); Total Protein 7.5 g/dL (6.5-8.0)
[2025-05-17 18:52] LABS: Appearance Urine Turbid; Glucose Urine UA Negative (Negative); PH 6.5 (5.0-9.0); Specific Gravity - Urine 1.015 (1.005-1.025); UMIC TRIGGER UACC YES
[2025-05-17 18:58] LABS: UACC Culture Trigger YES
--- NOTE | 2025-05-17 20:51 | PC.NURSE ---
called patient from waiting room and no answer.
== END 2025-05-17 20:51 | disposition left against medical advice (07) ==
PROVIDERS: Registered Nurse Emergency; Emergency Provider Emergency Medicine; PCP Internal Medicine
DX: R39.11 Hesitancy of micturition (principal); Z53.21 Procedure and treatment not carried out due to patient leaving prior to being seen by health care provider
CPT/HCPCS: 36415; 51798; 80053; 81001; 85025; 87086; 99282; 99283

== ENCOUNTER 2025-05-19 12:33 | Outpatient (REF) | payer MEDICARE, SELFPAY ==
[2025-05-19 17:27] LABS: Anion Gap 12 (12-20); Blood Urea Nitrogen 25 mg/dL (9-16); Calcium 9.7 mg/dL (8.4-10.2); Carbon Dioxide 31 mmol/L (22-29); Chloride 103 mmol/L (96-108); Estimated Glomerular Filt Rate 53; Potassium 3.9 mmol/L (3.3-5.1); Sodium 142 mmol/L (135-145)
== END 2025-05-19 12:34 | disposition home or self-care (01) ==
LOC: HO.HMGCLDS 12:33
PROVIDERS: PCP Internal Medicine; Visit Provider Internal Medicine
DX: E87.6 Hypokalemia (principal)
CPT/HCPCS: 36415; 80048

== ENCOUNTER 2025-05-24 14:03 | Outpatient (AMB) | payer MEDICARE, SELFPAY ==
--- NOTE | 2025-05-24 14:16 | A.OFFVIS_ITS ---
Vital Signs 05/24/25 14:19 Height 5 ft 11 in Weight 218 lb BMI 30.4 Intake Visit Reasons: Left shoulder pain and weakness Intake Note: Kenan is a 75 year old male who presents with complaints of progressively worsening left shoulder pain and weakness. The patient states that he injured his left shoulder several years ago while lifting a heavy object. Since that time his symptoms have gotten progressively worse in spite of continued non operative treatments. He has tried Tylenol and anti-inflammatory medicines which gave him minimal relief. Has done physical therapy exercises which aggravated his pain. The patient reports difficulty lifting his left hand above shoulder height. Allergies Sulfa (Sulfonamide Antibiotics) (SULFA (SULFONAMIDE ANTIBIOTICS)) Allergy (Unknown, Verified 05/24/25 14:19) does not remember Medication List - Last Reconciled 05/24/25 by Fredrick Sahu MD albuterol sulfate 90 mcg/actuation 2 puffs PO QID alfuzosin ER 10 mg PO DAILY amlodipine 10 mg PO DAILY aspirin 81 mg PO DAILY ciprofloxacin HCl 250 mg PO BID 5 days fenofibrate 160 mg PO DAILY finasteride 5 mg PO DAILY fluticasone propionate 50 mcg/actuation (Flonase Allergy Relief) 1 spray intranasal DAILY ipratropium bromide 2 sprays intranasal TID 30 days omeprazole 40 mg PO BID 30 days potassium chloride ER (K-Tab) 2 tabl qd triamterene-hydrochlorothiazid 37.5-25 mg 1 tab PO DAILY PFSH Medical History Bronchitis Annual physical exam Hyperlipidemia Hyperglycemia Obesity GERD (gastroesophageal reflux disease) Lumbago Impaired fasting glucose CAD (coronary artery disease) BPH (benign prostatic hyperplasia) HTN (hypertension) Surgical History No pertinent past surgical history Family History Father Alcoholism Substance use disorder Mother CHF (congestive heart failure) Brother No problems noted. Sister No problems noted. Sister No problems noted. Sister No problems noted. Sister No problems noted. Social History Housing: House Patient Tobacco Use Status: Never used Tobacco e-Cigarette/Vaping Use: Never Used service: Yes Current occupational status: retired Cognitive needs: No Hearing needs: No Vision needs: Yes Physical Exam Vital Signs: BMI result Body Mass Index 30.4 Const Other: Well-nourished well-developed very friendly male awake alert and oriented x3 in no acute distress Extrem Other: Left shoulder examination shows decreased range of motion when compared to his right shoulder, 4/5 strength with supraspinatus testing, positive impingement signs, tenderness over his acromioclavicular joint, no instability Results Reviewed Results Reviewed: MRI of the patient's left shoulder show severe acromioclavicular joint narrowing, a type 2 acromion, a full-thickness tear of the supraspinatus tendon Assessment & Plan Assessment & Plan (1) Complete rotator cuff tear of left shoulder: Code(s): M75.122 - Complete rotator cuff tear or rupture of left shoulder, not specified as traumatic Category: Medical Plan Mr. Castañeda presents with progressively worsening left shoulder pain and weakness due to impingement syndrome, acromioclavicular joint arthritis and a fu ll-thickness rotator cuff tear. I had a lengthy discussion with the patient regarding the treatment options. At this point he has failed continued non operative treatments. The risks and benefits of left shoulder surgery were discussed at length with the patient. The patient wishes to proceed with surgery. Surgery will involve left shoulder arthroscopic distal clavicle excision, left shoulder arthroscopic acromioplasty and left shoulder mini open rotator cuff repair. The patient will be scheduled for next available date. He will follow up as instructed. Feel free to call me at any time should questions regarding his orthopedic management arise. Thank you very much for asking me to see this very friendly gentleman. I spent 21 minutes in reviewing the patient's records and imaging studies, seeing the patient and documenting in the medical record. Coding Level of Care Code New Pt Level 3 (68603) Complex EM visit Add On G2211 Diagnoses Complete rotator cuff tear of left shoulder M75.122
[2025-05-24 14:19] VITALS: BMI 30.4
--- OUTSIDE RECORDS SUMMARY | 2025-05-24 17:50 | XMS_ITS | Encounter Summary ---
Author Organization [facility] Address [address] [place] [address] Care Team Providers Care Employee Placement Specialist Name Role Phone Physician, Pcp Unknown Primary Care Provider Faith vailable Encounter Details Date Type Department Care Team (Late st Contact Info) Description 2025 Lab Requisition [facility] - Main Lab [address] [facility] [place] [address] Denisha Blackmon PA [address] [place] [address] Urinary tract infection, site not specified; Frequency of micturition Social History Tobacco Use Types Packs/Day Years Used Date Smoking Tobacco: Never Assessed Sex and Gender Information Value Date Recorded Sex Assigned at Not on file Legal Sex Male 11:54 PM EST Gender Identity Not on file Sexual Orientation Not on file documented as of this encounter Plan of Treatment Not on file documented as of this encounter Procedures Procedure Name Priority Date/Time Associated Diagnosis Comments CULTURE URINE Routine 2025 12:00 AM EDT Urinary tract infection, site not specified Frequency of micturition documented in this encounter Results * Culture urine (2025 12:00 AM EDT) Culture, Urine <10,000 CFU/mL gram positive cocci, insignificant count, no further workup 05/19/2025 1:12 PM EDT [facility] Urine Urine specimen obtained by clean catch procedure / Unknown 2025 2025 6:09 PM EDT us Denisha [facility] MICROBIOLOGY - GENERAL ORD ERABLES Final Result [facility] [address] [place] [address], documented in this encounter Visit Diagnoses Diagnosis Urinary tract infection, site not specified Frequency of micturition Urinary frequency documented in this encounter Care Teams Employee Placement Specialist Relationship Specialty Start Date End Date Physician, Pcp Unknown PCP - General 05/18/25 documented as of this encounter
--- OUTSIDE RECORDS SUMMARY | 2025-05-24 17:50 | XMS_ITS | Clinical Summary ---
Author Organization [address] [facility] Address [address] [place] [address] Phone Care Team Providers Care Food Court Team Member Name Role Phone Physician, Pcp Unknown Primary Care Provider Faith vailable Encounters Date Type Department Care Team Description 2025 Lab Requisition [facility] - Main Lab 299 [facility] [place] [address] Denisha Blackmon PA Urinary tract infection, site not specified; Frequency of micturition from Last 3 Months Social History Tobacco Use Types Packs/Day Years Used Date Smoking Tobacco: Never Assessed Sex and Gender Information Value Date Recorded Sex Assigned at Not on file Legal Sex Male 11:54 PM EST Gender Identity Not on file Sexual Orientation Not on file Plan of Treatment Health Maintenance Due Date Last Done Comments Colorectal Cancer Screening: Colonoscopy 1950 DTaP,Tdap,and Td Vaccines (1 - Tdap) 1969 Pneumococcal Vaccine: 50+ Ye ars (1 of 1 - PCV) 2000 Zoster Vaccines (1 of 2) 2000 Depression Screening 08/10/2024 COVID-19 Vaccine (1 - 2023-2 5 season) 2025 Influenza Vaccine (#1) 2025 Abdominal Aortic Aneurysm (A AA) Screen 2025 Cholesterol Screening (Lipid Panel) 2025 Falls Risk Assessment 2025 Hepatitis C Screening 2025 Medicare Annual Wellness Visit 2025 RSV Immunization Adult Patie nts (1 - 1-dose 75+ series) 2025 Social Influencers of Health Screening 2025 HIB Vaccines Aged Out No longer eligi ble based on patient's age to complete this topic HPV Vaccines Aged Out No longer eligi ble based on patient's age to complete this topic Hepatitis A Vaccines Aged Out No long er eligible based on patient's age to complete this topic Hepatitis B Vaccines Aged Out No long er eligible based on patient's age to complete this topic IPV Vaccines Aged Out No longer eligi ble based on patient's age to complete this topic MMR Vaccines Aged Out No longer eligi ble based on patient's age to complete this topic Meningococcal ACWY Vaccine Aged Out N o longer eligible based on patient's age to complete this topic Meningococcal B Vaccine Aged Out No l onger eligible based on patient's age to complete this topic RSV Immunization Patients Un mickie 20 months Aged Out No longer eligible b ased on patient's age to complete this topic Varicella Vaccines Aged Out No longer eligible based on patient's age to complete this topic Procedures Procedure Name Priority Date/Time Associated Diagnosis Comments CULTURE URINE Routine 2025 12:00 AM EDT Urinary tract infection, site not specified Frequency of micturition from Last 3 Months Results * Culture urine (2025 12:00 AM EDT) Culture, Urine <10,000 CFU/mL gram positive cocci, insignificant count, no further workup 05/19/2025 1:12 PM EDT [facility] Urine Urine specimen obtained by clean catch procedure / Unknown 2025 2025 6:09 PM EDT us Denisha [facility] MICROBIOLOGY - GENERAL ORD ERABLES Final Result [facility]) [facility] [address] [place] [address], [place] [phone] from Last 3 Months Insurance [employer] MEDICARE Care Teams Food Court Team Member Relationship Specialty Start Date End Date Physician, Pcp Unknown PCP - General 05/18/25
--- OUTSIDE RECORDS SUMMARY | 2025-05-24 17:50 | XMS_ITS | Patient Health Record ---
[facility] Address [address] [place] [address] Care Team Providers Care Site Director Name Role Phone Jackeline Garcia MD Primary Care Provider Chaz Meek Unavailable [phone] Allergies Allergen (clinical drug ingredient) Drug/Non Drug [...] Date Coverage End Date [employer] Medicare [id number] [address] [address] [place] [address] [id number] Kenan Castañeda Self - patient is the insured Medical (General) History Medical History History ICD Code Benign prostatic hyperplasia (BPH) chronic bronchitis CAD ( Coronary Artery Disease) COPD Gastroesophageal reflux disease (GERD) Hypertension Hyperglycemia Hyperlipidemia Impaired Fasting Glucose Lumbargo Obesity Surgical History Surgery Date(Month/Year)
== END 2025-05-24 14:39 | disposition home or self-care (01) ==
PROVIDERS: PCP Internal Medicine; Visit Provider Orthopaedic Surgery
DX: M75.122 Complete rotator cuff tear or rupture of left shoulder, not specified as traumatic (principal)
CPT/HCPCS: 99204; G2211

== ENCOUNTER → 2025-05-24 14:03 | Outpatient (BNVA) | payer MEDICARE, SELFPAY | PROVIDERS: PCP Internal Medicine; Visit Provider Orthopaedic Surgery | DX: M75.122 Complete rotator cuff tear or rupture of left shoulder, not specified as traumatic (principal) | CPT/HCPCS: 99202 ==

== ENCOUNTER 2025-06-02 14:29 | Outpatient (AMB) | payer MEDICARE, SELFPAY ==
[2025-06-02 14:33] VITALS: BP 142/70; PULSE 81; TEMP 36.6; O2SAT 96; BMI 29.6
--- NOTE | 2025-06-02 14:33 | AM.OFFWIN_ITS ---
Intake Vital Signs 06/02/25 14:33 Height 5 ft 11 in Weight 212 lb BMI 29.6 BP 142/70 H Blood Pressure Location Lt brachial Position Sitting Pulse 81 Pulse Source Pulse Oximeter Temp 98 F Temp Source Oral Pulse Oximetry (%) 96 Oxygen Delivery Method Room Air Oxygen Flow Rate 98 Intake Visit Reasons: EP - R Ear Fullness Intake Note: Patient presents with right ear fullness/pain x4 days. Patient Tobacco Use Status: Never used Tobacco Allergies Sulfa (Sulfonamide Antibiotics) (SULFA (SULFONAMIDE ANTIBIOTICS)) Allergy (Unknown, Verified 06/02/25 14:36) does not remember HPI HPI Comments History of Present Illness Details History - The patient is a 75-year-old male pres enting with an earache. - The earache has been present for 4 day s, primarily affecting the right ear and extending to the side of the head. - The patient reports no drainage or hea ring changes and denies fever. - The patient has a history of ear infec tions but has not experienced one in years. Review of Systems - Ears: Reports earache on the right michaelle e for four days. Denies drainage or hearing changes. - General: Denies fever. All systems reviewed and are unremarkable except as noted in HPI Physical Exam General: Cooperative, healthy appearing, comfortable, no acute distress and well developed Orientation: Patient oriented x3 Limitations: No limitations Head: Normal to inspection Ears: external ear normal b/l, right side tender and slightly erythematous, TM's normal, no TTP mastoid on right side Face and sinus: Normal facial exam Neck: Normal visual inspection and Yes full ROM Respiratory: Normal respiratory effort and able to speak in complete sentences. Skin: No rashes or lesions noted Neuro: Patient oriented x3 Extremities: normal to inspection [facility] Medical History Bronchitis Annual physical exam Hyperlipidemia Hyperglycemia Obesity GERD (gastroesophageal reflux disease) Lumbago Impaired fasting glucose CAD (coronary artery disease) BPH (benign prostatic hyperplasia) HTN (hypertension) Surgical History No pertinent past surgical history Family History Father Alcoholism Substance use disorder Mother CHF (congestive heart failure) Brother No problems noted. Sister No problems noted. Sister No problems noted. Sister No problems noted. Sister No problems noted. Social History Housing: House Patient Tobacco Use Status: Never used Tobacco e-Cigarette/Vaping Use: Never Used service: Yes Current occupational status: retired Cognitive needs: No Hearing needs: No Vision needs: Yes Physical Exam Vital Signs: Last Vital Signs Temp 98 F 06/02/25 14:33 Pulse 81 06/02/25 14:33 BP 142/70 H 06/02/25 14:33 Pulse Ox 96 06/02/25 14:33 Oxygen Delivery Method Room Air 06/02/25 14:33 Oxygen Flow Rate 98 06/02/25 14:33 BMI result Body Mass Index 29.6 Assessment & Plan Assessment & Plan (1) Otitis externa: Code(s): H60.90 - Unspecified otitis externa, unspecified ear Qualifiers: Otitis externa type: noninfectious Noninfectious otitis externa type: unspecified noninfectious type Chronicity: acute Laterality: right Qualified Code(s): H60.501 - Unspecified acute noninfective otitis externa, right ear Plan: Plan - Prescribe steroid ear drops for the right ear to reduce inflammation and alleviate pain, with instructions to administer four drops three times a day for a week. - Advise follow-up with PCP if symptoms persist after one week, with potential use of a steroid nasal spray if inflammation continues. Patient was informed and verbally consented to the use of an ambient scribe for clinic note documentation during this visit. Medications: New hydrocortisone-acetic acid 1-2 % 4 drps otic (ear) right TID 10 mL 0RF Coding Level of Care Code Est Pt Level 3 (46888) Diagnoses Acute non-infective otitis externa of right ear, unspecified type H60.501 Otitis externa type: noninfectious Noninfectious otitis externa type: unspecified noninfectious type Chronicity: acute Laterality: right
--- OUTSIDE RECORDS SUMMARY | 2025-06-02 16:22 | XMS_ITS | Encounter Summary ---
Author Organization [facility] Address [address] [place] [address] Care Team Providers Care Machine Leather Trimmer Name Role Phone Physician, Pcp Unknown Primary Care Provider Faith vailable Encounter Details Date Type Department Care Team (Late st Contact Info) Description 2025 Lab Requisition [facility] - Main Lab [address] [facility] [place] [address] Denisha Blackmon PA [address] [place] [address] Urinary tract infection, site not specified; Frequency [...] no further workup 05/19/2025 1:12 PM EDT [facility]) [facility] Urine Urine specimen obtained by clean catch procedure / Unknown 2025 2025 6:09 PM EDT us Denisha [facility] MICROBIOLOGY - GENERAL ORD ERABLES Final Result [facility] ([facility] HOSPITAL LAB [address] [place] [address], documented in this encounter Visit Diagnoses Diagnosis Urinary tract infection, site not specified Frequency of micturition Urinary frequency documented in this encounter Care Teams Machine Leather Trimmer Relationship Specialty Start Date End Date Physician, Pcp Unknown PCP - General 05/18/25 documented as of this encounter
--- OUTSIDE RECORDS SUMMARY | 2025-06-02 16:22 | XMS_ITS | Clinical Summary ---
Author Organization 299 [facility] Address [address] [place] [address] Phone Care Team Providers Care Airborne Operations Name Role Phone Physician, Pcp Unknown Primary Care Provider Faith vailable Encounters Date Type Department Care Team Description 2025 Lab Requisition [facility] - Main Lab [address] [facility] [place] [address] Denisha Blackmon PA Urinary tract [...] no further workup 05/19/2025 1:12 PM EDT [facility] Urine Urine specimen obtained by clean catch procedure / Unknown 2025 2025 6:09 PM EDT us Denisha [facility] MICROBIOLOGY - GENERAL ORD ERABLES Final Result [facility] ([facility]) [facility] [address] [place] [address], [place] [phone] from Last 3 Months Insurance [employer] MEDICARE Care Teams Airborne Operations Relationship Specialty Start Date End Date Physician, Pcp Unknown PCP - General 05/18/25
--- OUTSIDE RECORDS SUMMARY | 2025-06-02 16:22 | XMS_ITS | Patient Health Record ---
[facility] Address [address] [place] [address] Care Team Providers Care Granite Installer Name Role Phone Jackeline Garcia MD Primary Care Provider Chaz Meek Unavailable [phone] Allergies Allergen (clinical drug ingredient) Drug/Non Drug [...] Date Coverage End Date [employer] Medicare Adv-[id number] [address] [address] [place] [address] [id number] Kenan Castañeda Self - patient is the insured Medical (General) History Medical History History ICD Code Benign prostatic hyperplasia (BPH) chronic bronchitis CAD ( Coronary Artery Disease) COPD Gastroesophageal reflux disease (GERD) Hypertension Hyperglycemia Hyperlipidemia Impaired Fasting Glucose Lumbargo Obesity Surgical History Surgery Date(Month/Year)
== END 2025-06-02 14:58 | disposition home or self-care (01) ==
PROVIDERS: PCP Internal Medicine; Visit Provider Physician Assistant
DX: H60.501 Unspecified acute noninfective otitis externa, right ear (principal)

== ENCOUNTER → 2025-06-02 14:29 | Outpatient (BNVA) | payer MEDICARE, SELFPAY | PROVIDERS: PCP Internal Medicine; Visit Provider Physician Assistant | DX: H60.501 Unspecified acute noninfective otitis externa, right ear (principal) | CPT/HCPCS: 99212 ==

== ENCOUNTER 2025-06-06 13:50 | Outpatient (AMB) | payer MEDICARE, SELFPAY ==
[2025-06-06 13:54] VITALS: BP 130/70; PULSE 58; TEMP 36.5; O2SAT 95; BMI 30.1
--- NOTE | 2025-06-06 13:54 | AM.OFFWIN_ITS ---
Intake Vital Signs 06/06/25 13:54 Height 5 ft 11 in Weight 216 lb BMI 30.1 BP 130/70 Blood Pressure Location Rt brachial Position Sitting Pulse 58 Pulse Source Pulse Oximeter Temp 97.7 F Temp Source Oral Pulse Oximetry (%) 95 Oxygen Delivery Method Room Air Intake Visit Reasons: ep right ear clogged Intake Note: Right ear is plugged up with the wax and impaired his hearing for the last four days. Patient Tobacco Use Status: Never used Tobacco Allergies Sulfa (Sulfonamide Antibiotics) (SULFA (SULFONAMIDE ANTIBIOTICS)) Allergy (Unknown, Verified 06/06/25 14:03) does not remember Do you need a note to return to daycare/school/sports/work: No HPI HPI Comments History of Present Illness Details History of Present Illness - The patient is a 75-year-old male pres enting with ear congestion in the right ear. - The patient reports the right ear feel s clogged, with no significant change in hearing noted. - The patient attempted to use ear drops , but they were ineffective in alleviating the congestion. - The patient denies any previous episod es of similar ear congestion. - No history of ear infections or signif icant ear-related issues was reported. Review of Systems - Ears: Reports right ear congestion. De nies hearing loss or tinnitus. All systems reviewed and are unremarkable except as noted in HPI Physical Exam General: Cooperative, healthy appearing, comfortable, no acute distress and well developed Orientation: Patient oriented x3 Limitations: No limitations Head: Normal to inspection Ears: Hearing grossly normal bilaterally,EAC's normal bilaterally, no cerumen, TM's normal bilaterally Nose: Normal External nose present Face and sinus: Normal facial exam Eyes: Appearance normal, both eyes and all related structures Neck: Normal visual inspection and Yes full ROM Respiratory: Normal respiratory effort and able to speak in complete sentences. Skin: No rashes or lesions noted Neuro: Patient oriented x3 Extremities: Normal to inspection [facility] Medical History Bronchitis Annual physical exam Hyperlipidemia Hyperglycemia Obesity GERD (gastroesophageal reflux disease) Lumbago Impaired fasting glucose CAD (coronary artery disease) BPH (benign prostatic hyperplasia) HTN (hypertension) Surgical History No pertinent past surgical history Family History Father Alcoholism Substance use disorder Mother CHF (congestive heart failure) Brother No problems noted. Sister No problems noted. Sister No problems noted. Sister No problems noted. Sister No problems noted. Social History Housing: House Patient Tobacco Use Status: Never used Tobacco e-Cigarette/Vaping Use: Never Used service: Yes Current occupational status: retired Cognitive needs: No Hearing needs: No Vision needs: Yes Physical Exam Vital Signs: Last Vital Signs Temp 97.7 F 06/06/25 13:54 Pulse 58 06/06/25 13:54 BP 130/70 06/06/25 13:54 Pulse Ox 95 06/06/25 13:54 Oxygen Delivery Method Room Air 06/06/25 13:54 BMI result Body Mass Index 30.1 Assessment & Plan Assessment & Plan (1) Congestion of right ear: Code(s): H93.8X1 - Other specified disorders of right ear Plan: Plan Patient was informed and verbally consented to the use of an ambient scribe for clinic note documentation during this visit. Ear Congestion - Recommended use of Fluticasone nasal spray directed on the right side to alleviate congestion. - Educated pt on proper use of Flonase, he does have a RX for it already. - Advised to use the nasal spray twice daily for a few weeks to achieve optimal results. - Suggested the use of ibuprofen for pain management if necessary. - Follow up with PCP if no improvement over the coming weeks. Coding Level of Care Code Est Pt Level 3 (96984) Diagnoses Congestion of right ear H93.8X1
--- OUTSIDE RECORDS SUMMARY | 2025-06-06 18:04 | XMS_ITS | Patient Health Record ---
Author [facility] Address [address] [place] [address] Care Team Providers Care Mixing Machine Feeder Name Role Phone Jackeline Garcia MD Primary Care Provider Chaz Meek Unavailable [phone] Allergies Allergen (clinical drug ingredient) Drug/Non Drug [...] Date Coverage End Date [employer] Medicare [id number] [address] [address] [place] [address] [id number] Kenan Castañeda Self - patient is the insured Medical (General) History Medical History History ICD Code Benign prostatic hyperplasia (BPH) chronic bronchitis CAD ( Coronary Artery Disease) COPD Gastroesophageal reflux disease (GERD) Hypertension Hyperglycemia Hyperlipidemia Impaired Fasting Glucose Lumbargo Obesity Surgical History Surgery Date(Month/Year)
--- OUTSIDE RECORDS SUMMARY | 2025-06-06 18:04 | XMS_ITS | Encounter Summary ---
Author Organization [facility] Address [address] [place] [address] Care Team Providers Care Automobile Inspector Name Role Phone Physician, Pcp Unknown Primary Care Provider Faith vailable Encounter Details Date Type Department Care Team (Late st Contact Info) Description 06/06/2025 Lab Requisition [facility] - Main Lab [address] [facility] [place] [address] Denisha Blackmon PA [address] [facility] [address] [place] [address] Gross hematuria Social History Tobacco Use Types Packs/Day Years Used Date Smoking Tobacco: Never Assessed Sex and Gender Information Value Date Recorded Sex Assigned at Not on file Legal Sex Male 11:54 PM EST Gender Identity Not on file Sexual Orientation Not on file documented as of this encounter Plan of Treatment Pending Results Name Type Priority Associated Diagnoses Date /Time Non-gynecologic cytology Pathology and Cytology Routine Gross hematuria 2025 12:00 AM EDT documented as of this encounter Visit Diagnoses Diagnosis Gross hematuria documented in this encounter Care Teams Automobile Inspector Relationship Specialty Start Date End Date Physician, Pcp Unknown PCP - General 05/18/25 documented as of this encounter
--- OUTSIDE RECORDS SUMMARY | 2025-06-06 18:04 | XMS_ITS | Clinical Summary ---
Author Organization 299 [facility] Address [address] [place] [address] Phone Care Team Providers Care Head Of Ict Name Role Phone Physician, Pcp Unknown Primary Care Provider Faith vailable Encounters Date Type Department Care Team Description 06/06/2025 Lab Requisition [facility] Lab [address] [place] [address] Denisha Blackmon PA Gross hematuria 2025 Lab Requisition [facility] [address] [place] [address] Denisha Blackmon PA Urinary tract [...] no further workup 05/19/2025 1:12 PM EDT [facility] Urine Urine specimen obtained by clean catch procedure / Unknown 2025 2025 6:09 PM EDT us Denisha [facility] MICROBIOLOGY - GENERAL ORD ERABLES Final Result [facility]) [facility] [address] [place] [address], from Last 3 Months Insurance [employer] MEDICARE Care Teams Head Of Ict Relationship Specialty Start Date End Date Physician, Pcp Unknown PCP - General 05/18/25
--- OUTSIDE RECORDS SUMMARY | 2025-06-06 18:04 | XMS_ITS | Encounter Summary ---
Author Organization [facility] Address [address] [place] [address] Care Team Providers Care Brew House Supervisor Name Role Phone Physician, Pcp Unknown Primary Care Provider Faith vailable Encounter Details Date Type Department Care Team (Late st Contact Info) Description 2025 Lab Requisition [facility] - Main Lab [address] [facility] [place] [address] Denisha Blackmon PA [address] [place] [address] Urinary tract infection, site not specified; Frequency [...] no further workup 05/19/2025 1:12 PM [address] [facility] ([facility]) [facility] Urine Urine specimen obtained by clean catch procedure / Unknown 2025 2025 6:09 PM EDT us Denisha [facility] MICROBIOLOGY - GENERAL ORD ERABLES Final Result [facility] ([facility]) H[facility]PITAL LAB [address] [place] [address], documented in this encounter Visit Diagnoses Diagnosis Urinary tract infection, site not specified Frequency of micturition Urinary frequency documented in this encounter Care Teams Brew House Supervisor Relationship Specialty Start Date End Date Physician, Pcp Unknown PCP - General 05/18/25 documented as of this encounter
== END 2025-06-06 14:17 | disposition home or self-care (01) ==
PROVIDERS: PCP Internal Medicine; Visit Provider Physician Assistant
DX: H93.8X1 Other specified disorders of right ear (principal)

== ENCOUNTER → 2025-06-06 13:50 | Outpatient (BNVA) | payer MEDICARE, SELFPAY | PROVIDERS: PCP Internal Medicine; Visit Provider Physician Assistant | DX: H93.8X1 Other specified disorders of right ear (principal) | CPT/HCPCS: 99212 ==

== ENCOUNTER 2025-06-07 11:03 | Outpatient (AMB) | payer MEDICARE, SELFPAY ==
[2025-06-07 11:31] VITALS: BP 142/62; PULSE 78; O2SAT 95; BMI 29.7
--- NOTE | 2025-06-07 11:31 | MHC.OFFVIS ---
Vital Signs 06/07/25 11:31 Height 5 ft 11 in Weight 213 lb BMI 29.7 BP 142/62 H Blood Pressure Location Rt brachial Position Sitting Pulse 78 Pulse Source Pulse Oximeter Pulse Oximetry (%) 95 Oxygen Delivery Method Room Air Intake Visit Reasons: 07/21 Allergies Sulfa (Sulfonamide Antibiotics) (SULFA (SULFONAMIDE ANTIBIOTICS)) Allergy (Unknown, Verified 06/07/25 11:36) does not remember HPI HPI 07/21: Details: 75-year-old gentleman, lifetime nonsmoker, with no significant industrial exposures followed for GERD, sarcoidosis diagnosed based on EBUS in October of 2019, and AMRIK.? Patient has been using his air duo and albuterol MDI with good baseline control of his symptoms. He denies recent exacerbations. He is scheduled for left shoulder surgery. [facility] Medical History Bronchitis Annual physical exam Hyperlipidemia Hyperglycemia Obesity GERD (gastroesophageal reflux disease) Lumbago Impaired fasting glucose CAD (coronary artery disease) BPH (benign prostatic hyperplasia) HTN (hypertension) Surgical History No pertinent past surgical history Family History Father Alcoholism Substance use disorder Mother CHF (congestive heart failure) Brother No problems noted. Sister No problems noted. Sister No problems noted. Sister No problems noted. Sister No problems noted. Social History Housing: House Patient Tobacco Use Status: Never used Tobacco e-Cigarette/Vaping Use: Never Used service: Yes Current occupational status: retired Cognitive needs: No Hearing needs: No Vision needs: Yes Review of Systems Const Denies daytime sleepiness, Denies excessive sweating, Denies fatigue, Denies fever(s), Denies lethargy, Denies malaise, Denies night sweats, Denies snoring and Denies weight loss Eyes Denies blurry vision and Denies itchy eyes ENT Denies nasal congestion, Denies post nasal drip, Denies sinus pain, Denies sinus pressure and Denies other ( Thrush) Card Denies chest pain, Denies pedal edema, Denies dyspnea, Denies orthopnea and Denies paroxysmal nocturnal dyspnea Resp Denies cough, Denies hemoptysis, Denies excessive phlegm production, Denies dyspnea, Denies snoring and Denies wheezing GI Denies abdominal pain and Denies heartburn Musc Denies myalgias, Denies arthralgias and Denies joint swelling Skin/Breast Denies rash Neuro Denies memory loss and Denies seizure-like activity Psych Denies abnormal sleep pattern, Denies anxiety and Denies memory loss Endo Denies excessive sweating, Denies fatigue and Denies heat intolerance Ethan/Lymph Denies easy bruising Aller/Immun Denies itchy eyes, Denies seasonal rhinorrhea and Denies wheezing Physical Exam Vital Signs: Last Vital Signs Pulse 78 06/07/25 11:31 BP 142/62 H 06/07/25 11:31 Pulse Ox 95 06/07/25 11:31 Oxygen Delivery Method Room Air 06/07/25 11:31 BMI result Body Mass Index 29.7 Const General: no acute distress and alert Nutritional Appearance: not obese Orientation/consciousness: Other orientation findings ( oriented) HEENT Head: Yes atraumatic Eyes General: appearance normal, both eyes and all related structures Sclerae: sclerae normal EOM: EOMs intact bilaterally Neck Neck: Yes supple Lymphatic: no lymphadenopathy noted Resp Effort & Inspection: normal respiratory effort and no use of accessory muscles Auscultation: clear to auscultation bilaterally Cardio Rate: regular rate Rhythm: regular rhythm Heart sounds: no gallops, no murmurs and no rubs Skin General skin exam: other ( warm) Extrem General: No clubbing, No cyanosis and No edema Assessment & Plan Assessment & Plan (1) Sarcoidosis: Comment: Established with nurse orthopedic, no active treatment Code(s): D86.9 - Sarcoidosis, unspecified Category: Medical Plan: No recent exacerbations. Continue to monitor clinically. Continue as needed albuterol MDI. (2) AMRIK on CPAP: Code(s): G47.33 - Obstructive sleep apnea (adult) (pediatric); Z99.89 - Dependence on other enabling machines and devices Category: Medical Plan: Controlled on current CPAP therapy. Continue CPAP therapy. (3) Encounter for preoperative pulmonary examination: Code(s): Z01.811 - Encounter for preprocedural respiratory examination Category: Medical Plan: At this time patient is at low risk for pulmonary perioperative complications for the proposed shoulder surgery either under general anesthesia, or monitored anesthesia care. Coding Level of Care Code Est Pt Level 4 (14399) Diagnoses Sarcoidosis D86.9 AMRIK on CPAP G47.33; Z99.89 Encounter for preoperative pulmonary examination Z01.811
--- OUTSIDE RECORDS SUMMARY | 2025-06-07 14:01 | XMS_ITS | Encounter Summary ---
Author Organization [facility] Address [address] [place] [address] Care Team Providers Care Set Off Press Operator Name Role Phone Physician, Pcp Unknown Primary Care Provider Faith vailable Encounter Details Date Type Department Care Team (Late st Contact Info) Description 2025 Lab Requisition [facility] - Main Lab [address] [facility] [place] [address] Denisha Blackmon PA [address] [place] [address] Urinary tract infection, site not specified; Frequency [...] further workup 05/19/2025 1:12 PM EDT [facility] Urine Urine specimen obtained by clean catch procedure / Unknown 2025 2025 6:09 PM EDT us Denisha [facility] MICROBIOLOGY - GENERAL ORD ERABLES Final Result [facility] ([facility] H[facility]PITAL LAB [address] [place] [address], documented in this encounter Visit Diagnoses Diagnosis Urinary tract infection, site not specified Frequency of micturition Urinary frequency documented in this encounter Care Teams Set Off Press Operator Relationship Specialty Start Date End Date Physician, Pcp Unknown PCP - General 05/18/25 documented as of this encounter
--- OUTSIDE RECORDS SUMMARY | 2025-06-07 14:01 | XMS_ITS | Encounter Summary ---
Author Organization [facility] Address [address] [place] [address] Care Team Providers Care Accreditation Coordinator Name Role Phone Physician, Pcp Unknown Primary Care Provider Faith vailable Encounter Details Date Type Department Care Team (Late st Contact Info) Description 06/06/2025 Lab Requisition [facility] - Main Lab [address] [facility] [place] [address] Denisha Blackmon PA [address] [facility] [address] [place] [address] Gross hematuria Social History Tobacco Use Types [...] hematuria documented in this encounter Care Teams Accreditation Coordinator Relationship Specialty Start Date End Date Physician, Pcp Unknown PCP - General 05/18/25 documented as of this encounter
--- OUTSIDE RECORDS SUMMARY | 2025-06-07 14:01 | XMS_ITS | Clinical Summary ---
Author Organization [address] [facility] Address [address] [place] [address] Phone Care Team Providers Care Technical Consultant Name Role Phone Physician, Pcp Unknown Primary Care Provider Faith vailable Encounters Date Type Department Care Team Description 06/06/2025 Lab Requisition [facility] Lab [address] [place] [address] Denisha Blackmon PA Gross hematuria 2025 Lab Requisition [facility] Lab [address] [place] [address] Denisha Blackmon PA Urinary tract [...] no further workup 05/19/2025 1:12 PM EDT [facility] Urine Urine specimen obtained by clean catch procedure / Unknown 2025 2025 6:09 PM EDT us Denisha [facility] MICROBIOLOGY - GENERAL ORD ERABLES Final Result [facility]) [facility] [address] [place] [address], from Last 3 Months Insurance [employer] MED[employer]ARE Care Teams Technical Consultant Relationship Specialty Start Date End Date Physician, Pcp Unknown PCP - General 05/18/25
--- OUTSIDE RECORDS SUMMARY | 2025-06-07 14:01 | XMS_ITS | Patient Health Record ---
[facility] Address [address] [place] [address] Care Team Providers Care Thoracic Surgeon Name Role Phone Jackeline Garcia MD Primary Care Provider Chaz Meek Unavailable [phone] Allergies Allergen (clinical drug ingredient) Drug/Non Drug [...] Date Coverage End Date [employer] Medicare [id number] [address] [address] [place] [address] [id number] Kenan Castañeda Self - patient is the insured Medical (General) History Medical History History ICD Code Benign prostatic hyperplasia (BPH) chronic bronchitis CAD ( Coronary Artery Disease) COPD Gastroesophageal reflux disease (GERD) Hypertension Hyperglycemia Hyperlipidemia Impaired Fasting Glucose Lumbargo Obesity Surgical History Surgery Date(Month/Year)
== END 2025-06-07 16:00 | disposition home or self-care (01) ==
LOC: HO.HPS 11:04
PROVIDERS: PCP Internal Medicine; Visit Provider Internal Medicine Pulmonary Disease
DX: D86.9 Sarcoidosis, unspecified (principal); G47.33 Obstructive sleep apnea (adult) (pediatric); Z99.89 Dependence on other enabling machines and devices; Z01.811 Encounter for preprocedural respiratory examination
CPT/HCPCS: 99214

== ENCOUNTER → 2025-06-07 11:03 | Outpatient (BNVA) | payer MEDICARE, SELFPAY | PROVIDERS: PCP Internal Medicine; Visit Provider Internal Medicine Pulmonary Disease | DX: Z01.811 Encounter for preprocedural respiratory examination (principal); D86.9 Sarcoidosis, unspecified; G47.33 Obstructive sleep apnea (adult) (pediatric); Z99.89 Dependence on other enabling machines and devices | CPT/HCPCS: 99212 ==

== ENCOUNTER 2025-07-13 10:53 | Outpatient (AMB) | payer MEDICARE, SELFPAY ==
--- NOTE | 2025-07-13 10:54 | MHC.PC.OV ---
Vital Signs 07/13/25 10:55 Height 5 ft 11 in Weight 215 lb BMI 30.0 BP 126/62 Blood Pressure Location Rt brachial Position Sitting Respiration 17 Pulse 84 Pulse Source Pulse Oximeter Temp 97.7 F Temp Source Oral Pulse Oximetry (%) 97 Oxygen Delivery Method Room Air Intake Visit Reasons: Pre op Intake Note: Pt is here today for pre op visit. Pt is having L shoulder with Dr. Sahu. Allergies Sulfa (Sulfonamide Antibiotics) (SULFA (SULFONAMIDE ANTIBIOTICS)) Allergy (Unknown, Verified 07/13/25 11:01) unknown reaction-childhood allergy Medication List - Last Reconciled 07/13/25 by Jackeline Garcia MD albuterol sulfate 90 mcg/actuation 2 puffs PO QID alfuzosin ER 10 mg PO DAILY amlodipine 10 mg PO DAILY aspirin 81 mg PO DAILY fenofibrate 160 mg PO DAILY finasteride 5 mg PO DAILY multivitamin 1 tab PO DAILY omeprazole 40 mg PO BID triamterene-hydrochlorothiazid 37.5-25 mg 1 tab PO DAILY Tobacco use date assessed: 07/13/25 Last assessed Fall Risk: 07/13/25 Dental Screening Dental Screen Date: 10/24/24 HPI Pre op HPI Details Pt presents for preop for L shoulder surgery. Hypertension hyperlipidemia and BPH are stable on current medications. [facility] Medical History (Updated 07/13/25 @ 12:01 by Jackeline Garcia MD) Cough AMRIK on CPAP Sarcoidosis Benign prostatic hyperplasia with lower urinary tract symptoms Sarcoidosis AMRIK (obstructive sleep apnea) Hyperlipidemia Obesity GERD (gastroesophageal reflux disease) Lumbago Impaired fasting glucose BPH (benign prostatic hyperplasia) HTN (hypertension) Surgical History History of bronchoscopy Family History Father Alcoholism Substance use disorder Mother CHF (congestive heart failure) Brother No problems noted. Sister No problems noted. Sister No problems noted. Sister No problems noted. Sister No problems noted. Social History Housing: House Housing Other:: mobile home Are you a primary acute care nursing assistant to a significant other at home: No Do you presently have visiting nurse or other home services: No Patient Tobacco Use Status: Never used Tobacco e-Cigarette/Vaping Use: Never Used service: Yes Current occupational status: retired Cognitive needs: No Hearing needs: No Vision needs: Yes Questionnaire Thrive Questionnaire Date Thrive assessed: 09/05/24 I am a: Patient What is your living situation today?: I have a steady place to live Within the past 12 months, did the food you bought not last and you didn't have the money to get more?: Never true Within the past 12 months, did you worry whether your food would run out before you got money to buy more?: Never true Do you have trouble paying for medicines?: No Do you have trouble getting transportation to medical appointments?: No Do you have trouble paying your heating and electricity bill?: No Do you have trouble taking care of your child, family member or friend?: No Do you have trouble with day-to-day activities such as bathing, preparing meals, shopping, managing finances, etc.?: No Are you currently unemployed and looking for a job?: No Are you interested in more education?: No Please select the resources that you would like help with: None Currently or been in a relationship where the following occur: No concerns reported THRIVE Score: 0 AUDIT C Alcohol Use Questionnaire (AUDIT-C) 1. How often do you have a drink containing alcohol?: Never 3. How often do you have six or more drinks on one occasion?: Never Total Score: 0 NATALIIA-7 AMB Questionnaire NATALIIA-7 Date NATALIIA - 7 assessed: 09/05/24 Source: Developed by Drs. Jaspal Calvillo, Aurora Pollard, Bassam Bailey and colleagues, with an educational keny from [employer]. Review of Systems Const All systems reviewed & are unremarkable except as noted in HPI and below ENT Reports no additional complaints Card Reports no additional complaints Resp Reports no additional complaints GI Reports no additional complaints Reports no additional complaints Physical exam (Primary Care) Vital Signs: Last Vital Signs Temp 97.7 F 07/13/25 10:55 Pulse 84 07/13/25 10:55 Resp 17 07/13/25 10:55 BP 126/62 07/13/25 10:55 Pulse Ox 97 07/13/25 10:55 Oxygen Delivery Method Room Air 07/13/25 10:55 BMI result Body Mass Index 30.0 Tobacco/Smoking Status: Tobacco use Status Tobacco use date assessed 07/13/25 07/13/25 11:03 Patient Tobacco Use Status Never used Tobacco 07/13/25 11:03 e-Cigarette/Vaping Use Never Used 07/13/25 10:55 Thrive Assessment: Date of Thrive Assessment Date Thrive assessed 09/05/24 07/13/25 10:55 Currently or been in a relationship where the following occur: No concerns reported Const General: no acute distress HENMT Head: Yes normal to inspection Resp Effort & Inspection: normal respiratory effort Auscultation: clear to auscultation bilaterally Cardio Rhythm: regular rhythm Heart sounds: S1 normal heart sound present and S2 normal heart sound present GI Inspection: Yes normal to inspection Palpation (GI): Soft to palpation Coding Level of Care Code Est Pt Level 4 (74273) Diagnoses HTN (hypertension) I10 Hyperlipidemia E78.5 Benign prostatic hyperplasia with lower urinary tract symptoms N40.1 Complete rotator cuff tear of left shoulder M75.122 AMRIK on CPAP G47.33; Z99.89 Assessment & Plan Assessment & Plan (1) HTN (hypertension): Code(s): I10 - Essential (primary) hypertension Category: Medical Plan: Continue current medication check comprehensive panel (2) Hyperlipidemia: Comment: Crestor caused myalgia Code(s): E78.5 - Hyperlipidemia, unspecified Category: Medical Plan: Continue fenofibrate (3) Benign prostatic hyperplasia with lower urinary tract symptoms: Comment: Established with [facility], CONTROLLED ON FINASTERIDE AND ALFUZOSIN Code(s): N40.1 - Benign prostatic hyperplasia with lower urinary tract symptoms Category: Medical Plan: Follow-up with urology (4) Complete rotator cuff tear of left shoulder: Code(s): M75.122 - Complete rotator cuff tear or rupture of left shoulder, not specified as traumatic Category: Medical Plan: Patient is medically cleared for left shoulder surgery (5) AMRIK on CPAP: Comment: Compliant with CPAP Code(s): G47.33 - Obstructive sleep apnea (adult) (pediatric); Z99.89 - Dependence on other enabling machines and devices Category: Medical Plan: Continue CPAP Orders: Orders Comprehensive Met. Panel Today I10 - Essential (primary) hypertension Complete Blood Count Auto Diff Today I10 - Essential (primary) hypertension
[2025-07-13 10:55] VITALS: BP 126/62; PULSE 84; RESP 17; TEMP 36.5; O2SAT 97
== END 2025-07-13 12:02 | disposition home or self-care (01) ==
LOC: HO.HMCC 10:54
PROVIDERS: PCP Internal Medicine; Visit Provider Internal Medicine
DX: I10 Essential (primary) hypertension (principal); E78.5 Hyperlipidemia, unspecified; N40.1 Benign prostatic hyperplasia with lower urinary tract symptoms; M75.122 Complete rotator cuff tear or rupture of left shoulder, not specified as traumatic; G47.33 Obstructive sleep apnea (adult) (pediatric); Z99.89 Dependence on other enabling machines and devices

== ENCOUNTER 2025-07-13 20:08 | Inpatient (IN) | payer MEDICARE, SELFPAY ==
[2025-07-13] VITALS (8 sets, daily range): BP systolic 108–155; BP diastolic 63–105; PULSE 70–121; RESP 17–25; TEMP 36.5–38.2; O2SAT 92–96; BMI 30.5
--- NOTE | ~2025-07-13 | XR_ITS ---
CLINICAL HISTORY: fever, PNA? 1 view chest x-ray. Comparison: 02/18/2023 Findings: No consolidation or effusion. Cardiac and mediastinal contours appear stable. Bones unremarkable. Impression: 1. No acute pulmonary disease. This document has been electronically signed by: Arian Anne MD on 07/13/2025 21:00:29
--- NOTE | ~2025-07-13 | CT_ITS ---
CLINICAL HISTORY: abdominal pain CT abdomen and pelvis without contrast Comparison: None provided Findings: No consolidation or effusion. Bibasilar atelectasis. Heart size is normal. Coronary artery calcifications are present. The liver is enlarged. The spleen, adrenal glands, pancreas, gallbladder and kidneys are unremarkable. No hydronephrosis. No bowel obstruction, pneumoperitoneum, or pneumatosis. Normal appendix appears to be retrocecal. Moderate distention of the urinary bladder with mildly thick wall. Small posterior left bladder diverticulum. Prostate gland is normal in size. No ascites. No acute fracture. IMPRESSION: No acute findings. Slightly redundant thick-walled urinary bladder which may indicate chronic bladder outlet obstruction. Alternatively thick-walled bladder could indicate cystitis. Hepatomegaly. This document has been electronically signed by: Isra Hdez MD on 07/13/2025 22:01:33
--- NOTE | 2025-07-13 20:18 | ECG_ITS ---
Test Reason : TACHYCARDIA Blood Pressure : */* mmHG Vent. Rate : 119 BPM Atrial Rate : 119 BPM P-R Int : 148 ms QRS Dur : 82 ms QT Int : 368 ms P-R-T Axes : 62 23 34 degrees QTcB Int : 517 ms Sinus tachycardia with Premature atrial complexes Otherwise normal ECG When compared with ECG of 23-Jan-2015 09:53, Premature atrial complexes are now Present Vent. rate has increased by 60 bpm Referred By: Samreen Don Electronically Signed By: MANOJ HUNTER
--- NOTE | 2025-07-13 20:18 | ED.GENADULT ---
HPI - General Adult General Chief complaint: Nausea/Vomiting/Diarrhea Stated complaint: Lethargic, dizzy Time Seen by Provider: 07/13/25 20:10 Source: patient Limitations: no limitations History of Present Illness ED Provider: Samreen Don PA-C HPI narrative: 75-year-old male with a history of sarcoidosis, hypertension, hyperlipidemia, AMRIK on CPAP, BPH, frequent urinary tract infections, chronic back pain, presents with nausea vomiting diarrhea x3 days. Patient states he has multiple family members who are sick with similar symptoms, his apparently is admitted here at [facility] with a pneumonia. Denies abdominal pain, cough cold symptoms or fever. Denies recent hospitalization, use of antibiotics or travel outside the country. Related Data Home Medications ?Medication ?Instructions ?Recorded ?Confirmed aspirin 81 mg tablet,delayed 81 mg PO DAILY 07/17/20 07/13/25 release multivitamin 1 tab PO DAILY 07/05/25 07/13/25 finasteride 5 mg tablet 5 mg PO DAILY 07/13/25 07/13/25 Previous Rx's ?Medication ?Instructions ?Recorded albuterol sulfate 90 mcg/actuation 2 puff PO QID #8.5 grams 07/10/21 aerosol inhaler amlodipine 10 mg tablet 10 mg PO DAILY #90 tabs 09/29/24 triamterene 37.5 1 tab PO DAILY #90 tabs 12/23/24 mg-hydrochlorothiazide 25 mg tablet alfuzosin 10 mg tablet,extended 10 mg PO DAILY #90 tabs 01/26/25 release 24 hr fenofibrate 160 mg tablet 160 mg PO DAILY #90 tabs 02/17/25 omeprazole 40 mg capsule,delayed 40 mg PO BID #60 caps 07/10/25 release Allergies Allergy/AdvReac Type Severity Reaction Status Date / Time Sulfa (Sulfonamide Allergy Unknown unknown Verified 07/13/25 20:20 Antibiotics) (SULFA reaction-childhood (SULFONAMIDE ANTIBIOTICS)) allergy Review of Systems Review of Systems: Yes all other systems are reviewed and are negative Constitutional: Constitutional: Denies chills, Reports fatigue, Denies fever(s) and Reports malaise Cardiovascular: Cardiovascular: Denies chest pain and Denies dyspnea Respiratory: Respiratory: Denies cough and Denies dyspnea Gastrointestinal: Gastrointestinal: Denies abdominal pain, Reports diarrhea, Reports nausea and Reports vomiting Genitourinary: Genitourinary: Reports dysuria Endocrine: Endocrine: Reports fatigue [facility] Past Medical History Attestation statement: The following information was validated with the patient. Medical History (Updated 07/13/25 @ 23:38 by DOTTIE Renee) Cough AMRIK on CPAP Sarcoidosis Benign prostatic hyperplasia with lower urinary tract symptoms Sarcoidosis AMRIK (obstructive sleep apnea) Hyperlipidemia Obesity GERD (gastroesophageal reflux disease) Lumbago Impaired fasting glucose BPH (benign prostatic hyperplasia) HTN (hypertension) Surgical History History of bronchoscopy Family History Family History Father Alcoholism Substance use disorder Mother CHF (congestive heart failure) Brother No problems noted. Sister No problems noted. Sister No problems noted. Sister No problems noted. Sister No problems noted. Social History Social History Housing: House Housing Other:: mobile home Are you a primary rn coronary care unit to a significant other at home: No Do you presently have visiting nurse or other home services: No Patient Tobacco Use Status: Never used Tobacco Smoked in Last 30 Days: No e-Cigarette/Vaping Use: Never Used Use of substances other than those prescribed or required for medical reasons: No Advance Directives: No Advance Directives Information Provided: No service: Yes Current occupational status: retired Cognitive needs: No Hearing needs: No Vision needs: Yes Physical Exam ED Vital Signs: Vital Signs - 24 hr 07/13/25 20:16 07/13/25 21:16 07/13/25 22:00 Temperature 100.8 F H 97.7 F Pulse Rate 115 H 103 H 103 H Respiratory Rate 17 23 H 22 H Blood Pressure 108/73 122/63 120/73 Pulse Oximetry 94 95 Oxygen Delivery Method Room Air Nasal Cannula Oxygen Flow Rate 1 BMI result Body Mass Index 30.5 Const Other: Ill-appearing, slumped over in bed Orientation/consciousness: patient oriented x3 HENMT Other: Dry oral mucosa Resp Other: Lungs clear to auscultation no wheezing Effort & Inspection: normal respiratory effort Cardio Other: Normal peripheral perfusion Skin Other: Warm dry no rash Neuro General: patient oriented x3, gait normal, no focal motor deficits and CN's II-XI intact bilaterally Psych Other: Cooperative Course Reevaluation(s) Reevaluation #1: A 2021 on July 13, a sepsis focused exam was performed, the patient is tachycardic and febrile, in addition to screening labs adding on blood cultures and lactic, giving weight based IV fluid therapy, starting empiric ceftriaxone Time: 20:22 Reevaluation #2: Lactic resulted at 4.4, given concern for severe sepsis adding broader coverage with antibiotic therapy, Ryan Time: 20:57 Reevaluation #3: ..... Patient is currently yelling out in pain, he states his lower back is extremely painful, he states he typically sees a chiropractor, giving Toradol and Valium, to note the patient just developed another temperature of 100.7? with the shaking rigors, Second lactic normalized to 1.4 Time: 23:32 Medications Administered Generic Name Dose Route Start Last Admin Trade Name Freq PRN Reason Stop Dose Admin Potassium Chloride 10 meq in 100 mls @ 100 mls/hr 07/13/25 21:00 07/13/25 23:42 Potassium Chloride/H20 IV 07/14/25 00:59 100 mls/hr Q1H LETICIA Administration Discontinued Medications Generic Name Dose Route Start Last Admin Trade Name Freq PRN Reason Stop Dose Admin Diazepam 5 mg 07/13/25 23:05 07/13/25 23:13 Diazepam 10 Mg/2 Ml Cartridge IVPUSH 07/13/25 23:06 5 mg STAT STA Administration Acetaminophen 1,000 mg in 100 mls @ 400 mls/hr 07/13/25 20:16 07/13/25 20:47 Ofirmev IV 07/13/25 20:30 Infused ONCE ONE Infusion Sodium Chloride 1,000 mls @ 999 mls/hr 07/13/25 20:30 07/13/25 21:17 Ns IV 07/13/25 21:30 Infused .Q1H1M LETICIA Infusion Ceftriaxone Sodium 2 gm/ 50 mls @ 100 mls/hr 07/13/25 20:22 07/13/25 21:07 Sodium Chloride IV 07/13/25 20:51 Infused ONCE ONE Infusion Lactated Ringer's 2,259 mls @ 2,259 mls/hr 07/13/25 20:54 07/13/25 22:44 Lr IV 07/13/25 21:53 Infused .Q1H ONE Infusion Vancomycin HCl 1,500 mg/ 500 mls @ 333.333 mls/hr 07/13/25 20:57 07/13/25 22:45 Sodium Chloride IV 07/13/25 22:26 Infused ONCE ONE Infusion Piperacillin Sod/Tazobactam 50 mls @ 100 mls/hr 07/13/25 20:57 07/13/25 22:45 Sod 3.375 gm/ Sodium Chloride IV 07/13/25 21:26 Infused ONCE ONE Infusion Ketorolac Tromethamine 15 mg 07/13/25 23:05 07/13/25 23:11 Ketorolac Tromethamine 15 Mg/Ml Vial IVPUSH 07/13/25 23:06 15 mg ONCE ONE Administration Ondansetron HCl 4 mg 07/13/25 20:22 07/13/25 20:29 Ondansetron Hcl 4 Mg/2 Ml Vial IVPUSH 07/13/25 20:23 4 mg ONCE ONE Administration Medical Decision Making Medical Decision Making MDM Narrative: 75-year-old male with a history of sarcoidosis, hypertension, hyperlipidemia, AMRIK on CPAP, BPH, frequent urinary tract infections, presents with nausea vomiting diarrhea x3 days. Patient states he has multiple family members who are sick with similar symptoms, his apparently is admitted here at [facility] with a pneumonia. Denies abdominal pain, cough cold symptoms or fever. Denies recent hospitalization, use of antibiotics or travel outside the country. Problem: Age, frequent urinary tract infections, sarcoidosis History: Per patient I have considered the following differential diagnoses: Viral gastroenteritis, diverticulitis, C diff, traveler's diarrhea, influenza/COVID, pneumonia, urinary tract infection, sepsis Plan: Concerned for sepsis, the patient is febrile, in addition to screening labs we will obtain blood cultures and lactic, giving weight based IV fluids, a g of Tylenol and starting empiric ceftriaxone. Adding a chest x-ray, UA, viral panel, and we will be scanning his abdomen and pelvis given active GI symptoms. I have independently reviewed the following tests: Labs: Leukocytosis of 13.3 with left shift, not anemic, RAUL noted creatinine 2.24, potassium 2.9, magnesium 1.7, no additional electrolyte abnormality, lactic acid 4.4, repeat lactic 1.4 , viral panel negative tested for influenza and COVID, EKG: Sinus tachycardia, rate of 119, PACs noted, no ischemic changes, QTC 517 Chest x-ray:Findings: No consolidation or effusion. Cardiac and mediastinal contours appear stable. Bones unremarkable. Impression: 1. No acute pulmonary disease. CT abdomen and pelvis:IMPRESSION: No acute findings. Slightly redundant thick-walled urinary bladder which may indicate chronic bladder outlet obstruction. Alternatively thick-walled bladder could indicate cystitis. Hepatomegaly. Differential Diagnosis Differential Diagnoses: The differential diagnosis associated with the presentation includes See [facility] Admission/Observation Consideration of admission/observation: Escalation of care including admission/observation considered Requires admission Consult Healthcare Provider Management of the patient was discussed with: Hospitalist Lab Data [facility] Lab Attestation statement: I reviewed the patient's lab results. 07/13/25 20:27 07/13/25 20:27 Labs: Lab Results 07/13/25 07/13/25 Range/Units 20:27 22:55 WBC 13.3 H (4.8-10.8) X10*3/uL RBC 5.22 (4.60-5.80) X10*6/uL Hgb 15.5 (14.0-18.0) g/dl Hct 45.9 (42.0-52.0) % MCV 87.9 (80.0-98.0) fL MCH 29.7 (27.0-33.0) pg MCHC 33.8 (31.0-36.0) g/dl RDW 12.9 (11.0-16.0) % Plt Count 192 (160-400) X10*3/uL MPV 11.9 (9.4-12.4) fL Immature Gran % (Auto) 0.9 H (0.0-0.4) % Neut % (Auto) 95.2 H (45-73) % Lymph % (Auto) 2.0 L (20-40) % [place] % (Auto) 0.6 L (2-11) % Eos % (Auto) 0.7 (0-4) % Baso % (Auto) 0.6 (0-2) % Lymph # (Auto) 0.3 L (1.2-4.9) X10*3/uL [place] # (Auto) 0.1 (0.1-1.2) X10*3/uL Eos # (Auto) 0.1 (0.0-0.4) X10*3/uL Baso # (Auto) 0.1 (0.0-0.2) X10*3/uL Abs Immat Gran (auto) 0.12 H (0.00-0.03) X10*3/uL Absolute Neuts (auto) 12.7 H (2.0-8.3) x10*3/uL Absolute Nucleated RBC 0.000 (0.0-0.012) X10*3/uL Nucleated RBC % (auto) 0.0 (0.0-0.2) /100WBC Smear Tech's Comments VERIFIED Sodium 145 (135-145) mmol/L Potassium 2.9 L* (3.3-5.1) mmol/L Chloride 107 (96-108) mmol/L Carbon Dioxide 23 (22-29) mmol/L Anion Gap 18 (12-20) BUN 35 H (9-16) mg/dL Creatinine 2.24 H (0.5-1.4) mg/dL Estim Creat Clear Calc 34.2 Estimated GFR 29 Random Glucose 119 H (60-115) mg/dL Lactic Acid 4.4 H* (0.5-2.0) mmol/L Lactic Acid F/U @ 2Hr 1.4 (0.5-2.0) mmol/L Calcium 9.0 (8.4-10.2) mg/dL Magnesium 1.7 (1.6-2.6) mg/dL Total Bilirubin 0.9 (0.0-1.0) mg/dL AST 55 H (5-37) U/L ALT 45 H (0-40) U/L Alkaline Phosphatase 112 (39-117) U/L Total Protein 7.0 (6.5-8.0) g/dL Albumin 3.9 (3.5-5.0) g/dL COVID-19 (ACACIA) Negative (Negative) COVID-19 Clin Com See Note Influenza Type A (COLTON) Negative (Negative) Influenza Type B (COLTON) Negative (Negative) Influenza A & B Note See Note Independent Interpretation I performed an independent interpretation of an: EKG Radiology Impression Discussion of test interpretation with radiology: I have reviewed the radiologist's reading. Critical Care Time Critical Care Time Critical Care Time: Yes Total Critical Care Time: 35 Attestation: I Samreen Don PA-C have personally performed 35 minutes of critical care time not including lines and procedures; sepsis, need for hospital admission Discharge Plan Discharge Clinical Impression: Cystitis Sepsis Qualifiers: Sepsis type: sepsis due to unspecified organism Sepsis acute organ dysfunction status: with acute organ dysfunction Severe sepsis acute organ dysfunction type: unspecified Severe sepsis shock status: without septic shock Qualified Code(s): A41.9 - Sepsis, unspecified organism Patient Disposition: Admitted As Inpatient Print Language: Polish
[2025-07-13 20:45] LABS: Hematocrit 45.9 % (42.0-52.0); Hemoglobin 15.5 g/dl (14.0-18.0); Imm Gran Abs Auto 0.12 X10*3/uL (0.00-0.03); Imm Gran Pct Auto 0.9 % (0.0-0.4); Lymphocytes Absolute Auto 0.3 X10*3/uL (1.2-4.9); MANUAL DIFF FLAG SCAN; Mean Corpuscular HGB Conc 33.8 g/dl (31.0-36.0); Mean Corpuscular Hemoglobin 29.7 pg (27.0-33.0); Mean Corpuscular Volume 87.9 fL (80.0-98.0); NRBC Abs Auto 0.000 X10*3/uL (0.0-0.012); NRBC Pct Auto 0.0 /100WBC (0.0-0.2); Platelet Count 192 X10*3/uL (160-400); Red Blood Count 5.22 X10*6/uL (4.60-5.80); SCAN SMEAR FLAG 1; White Blood Count 13.3 X10*3/uL (4.8-10.8)
[2025-07-13 20:50] LABS: COVID-19 Test Negative (Negative); IDNOW Serial# 55D5AD1C; IDNOW Serial# 58CA691E; Influenza B2 Negative (Negative)
[2025-07-13 20:55] LABS: Alanine Aminotransferase 45 U/L (0-40); Albumin Level 3.9 g/dL (3.5-5.0); Alkaline Phosphatase 112 U/L (39-117); Anion Gap 18 (12-20); Aspartate Amino Transferase 55 U/L (5-37); Blood Urea Nitrogen 35 mg/dL (9-16); Calcium 9.0 mg/dL (8.4-10.2); Carbon Dioxide 23 mmol/L (22-29); Chloride 107 mmol/L (96-108); Creatinine Clr Calc Pharmacy 34.2; Estimated Glomerular Filt Rate 29; Magnesium 1.7 mg/dL (1.6-2.6); Potassium 2.9 mmol/L (3.3-5.1); Sodium 145 mmol/L (135-145); Total Protein 7.0 g/dL (6.5-8.0)
[2025-07-13] MEDS: Potassium Chloride/H20 10 MEQ/100 ML PIGGYBACK 100 MEQ IV ×3 (21:15→23:42)
--- OUTSIDE RECORDS SUMMARY | 2025-07-13 22:27 | XMS_ITS | Patient Health Record ---
Author Organization [facility] Address [address] [place] [address] Care Team Providers Care Knitted Goods Shaper Name Role Phone Jackeline Garcia MD Primary Care Provider Chaz Meek Unavailable [phone] Allergies Allergen (clinical drug ingredient) Drug/Non Drug [...] Date Coverage End Date [employer] Medicare [id number] [address] [address] [place] [address] [id number] Kenan Castañeda Self - patient is the insured Medical (General) History Medical History History ICD Code Benign prostatic hyperplasia (BPH) chronic bronchitis CAD ( Coronary Artery Disease) COPD Gastroesophageal reflux disease (GERD) Hypertension Hyperglycemia Hyperlipidemia Impaired Fasting Glucose Lumbargo Obesity Surgical History Surgery Date(Month/Year)
[2025-07-13] MEDS: diazePAM 10 MG/2 ML CARTRIDGE 5 MG IVPUSH (23:13)
--- NOTE | 2025-07-13 23:27 | PC.NURSE ---
Addendum entered by Glenna Martins RN 07/14/25 06:08: pts bed noted to be wet with urine, strong odor. changed pts bed linen, gown and cleaned the bed with EDT. placed purwick on pt. Addendum entered by Glenna Martins RN 07/14/25 05:01: Pts twin sister Gabriella Ann [phone] Original Note: pt noted to desat to mid 80's while sleeping, 2L NC placed on pt with improvement to 93-96% O2.
[2025-07-14] VITALS (15 sets, daily range): BP systolic 123–154; BP diastolic 69–95; PULSE 78–122; RESP 12–28; TEMP 36.4–37.4; O2SAT 93–97; BMI 30.8
--- NOTE | 2025-07-14 00:28 | P.HPHOSP_ITS ---
History of Present Illness Date of Service: 07/13/25 Attending physician on admission: Noah Almazan Chief Complaint: N/V/D Patient is a 75-year-old male with a past medical history significant for sarcoidosis, hypertension, hyperlipidemia, AMRIK on CPAP, BPH, frequent UTIs and chronic back pain, who presented to the ED due to nausea, vomiting, diarrhea and dizziness for the past 3 days. Pt is unable to provide a history at this time as he was having a flare of his chronic back pain and received diazepam and has been somnolent since. The following history is from ED provider. Patient reported that he has been around multiple family members with similar symptoms and his is currently admitted here for pneumonia. He denied any abdominal pain, cough or fever. He denied any urinary symptoms including frequency, urgency or dysuria. It was noted that his urine is very malodorous, urine sample with spilled unfortunately, therefore waiting for another urine sample at this time. The pt's twin sister was beside and reports that the pt went for a urologic procedure today that was not successful. She does not know what kind of procedure and states it was done at [facility]. She states it was for his bladder and prostate but they were not successful and stopped . EMS noted that pt was hypoxic in the upper 80s when they arrived with improvement on 2L NC. pt now on CPAP that he is supposed to use at bedtime but admittedly does not use. Review of Systems 2 Review of Systems: Yes Unobtainable due to mental condition [facility] Medical History Cough AMRIK on CPAP Sarcoidosis Benign prostatic hyperplasia with lower urinary tract symptoms Sarcoidosis AMRIK (obstructive sleep apnea) Hyperlipidemia Obesity GERD (gastroesophageal reflux disease) Lumbago Impaired fasting glucose BPH (benign prostatic hyperplasia) HTN (hypertension) Functional capacity: independent ambulation Family History Father Alcoholism Substance use disorder Mother CHF (congestive heart failure) Brother No problems noted. Sister No problems noted. Sister No problems noted. Sister No problems noted. Sister No problems noted. Surgical History History of bronchoscopy Social History Housing: House Housing Other:: mobile home Are you a primary medicare insurance specialist to a significant other at home: No Do you presently have visiting nurse or other home services: No Patient Tobacco Use Status: Never used Tobacco Smoked in Last 30 Days: No e-Cigarette/Vaping Use: Never Used Use of substances other than those prescribed or required for medical reasons: No Advance Directives: No Advance Directives Information Provided: No service: Yes Current occupational status: retired Cognitive needs: No Hearing needs: No Vision needs: Yes Meds Allergies Allergy/AdvReac Type Severity Reaction Status Date / Time Sulfa (Sulfonamide Allergy Unknown unknown Verified 07/13/25 20:20 Antibiotics) (SULFA reaction-childhood (SULFONAMIDE ANTIBIOTICS)) allergy Active Medications: Current Medications Potassium Chloride (Potassium Chloride/H20) 10 meq in 100 mls @ 100 mls/hr IV Q1H LETICIA Stop: 07/14/25 00:59 Last Admin: 07/13/25 23:42 Dose: 100 mls/hr Home Medications ?Medication ?Instructions ?Recorded ?Confirmed ?Last Taken ?Type aspirin 81 mg tablet,delayed 81 mg PO DAILY 07/17/20 1 09/13/24 Unknown History release multivitamin 1 tab PO DAILY 07/05/25 1212/02 Unknown History finasteride 5 mg tablet 5 mg PO DAILY 07/13/2507/13 Unknown History Physical Exam 2 Vital Signs and Narrative: Vital Signs: Last Vital Signs Temp 97.7 F 07/13/25 21:16 Pulse 122 H 07/14/25 00:00 Resp 28 H 07/14/25 00:16 BP 130/71 07/14/25 00:00 Pulse Ox 96 07/14/25 00:00 O2 Del Method Oxymask 07/14/25 00:00 O2 Flow Rate 4 07/14/25 00:00 BMI result Body Mass Index 30.5 General: Somnolent, lets restless, twin sister bedside Resp: CTA bilaterally, limited exam CVS: +murmur, tachy, regular rhythm GI: +BS, no response to palpation, mild distention Skin: Warm, dry Neuro: Motor grossly intact bilaterally Extremities: No pitting edema Psych: Somnolent Results Labs 07/13/25 20:27 07/13/25 20:27 Labs: Laboratory Results - last 24 hr 07/13/25 07/13/25 20:27 22:55 MCV 87.9 MCH 29.7 MCHC 33.8 RDW 12.9 Plt Count 192 MPV 11.9 Immature Gran % (Auto) 0.9 H Neut % (Auto) 95.2 H Lymph % (Auto) 2.0 L [place] % (Auto) 0.6 L Eos % (Auto) 0.7 Baso % (Auto) 0.6 Lymph # (Auto) 0.3 L [place] # (Auto) 0.1 Eos # (Auto) 0.1 Baso # (Auto) 0.1 Abs Immat Gran (auto) 0.12 H Absolute Neuts (auto) 12.7 H Absolute Nucleated RBC 0.000 Nucleated RBC % (auto) 0.0 Smear Tech's Comments VERIFIED Anion Gap 18 Estim Creat Clear Calc 34.2 Estimated GFR 29 Random Glucose 119 H Lactic Acid 4.4 H* Lactic Acid F/U @ 2Hr 1.4 Calcium 9.0 Magnesium 1.7 Total Bilirubin 0.9 AST 55 H ALT 45 H Alkaline Phosphatase 112 Total Protein 7.0 Albumin 3.9 COVID-19 (ACACIA) Negative COVID-19 Clin Com See Note Influenza Type A (COLTON) Negative Influenza Type B (COLTON) Negative Influenza A & B Note See Note Assessment and Plan (1) Acute hypoxic respiratory failure: Status: Acute (2) Severe sepsis: Status: Acute (3) RAUL (acute kidney injury): Status: Acute Plan Patient is a 75-year-old male with a past medical history significant for sarcoidosis, hypertension, hyperlipidemia, AMRIK on CPAP, BPH, frequent UTIs and chronic back pain, who presented to the ED due to nausea, vomiting, diarrhea and dizziness for the past 3 days. acute hypoxic respiratory failure with severe sepsis, unknown source, likely UTI, cystitis on abdominopelvic CT - UA ordered, not yet done, history frequent UTIs - respiratory pathogen panel - GI panel - vancomycin and Zosyn prophylactically until infectious source identified - blood cultures pending - titrate oxygen as needed - monitor CBC and BMP RAUL, likely secondary to sepsis and vomiting/diarrhea - IV fluids - treat underlying source - monitor creatinine - avoid nephrotoxins when possible acute lactic acidosis - improved with IVF - trend lactic acid - treat underlying cause acute hypokalemia - potassium repleted - monitor BMP hypertension - BP normal, hold home medications currently due to severe sepsis HLD - Fenofibrate AMRIK - CPAP at bedtime BPH - continue home meds chronic back pain - continue home meds med rec pending full code VTE prophylaxis: heparin patient with acute hypoxic respiratory failure with severe sepsis with unknown source, likely UTI, requiring admission for at least 2 midnights stay for IV antibiotics and monitoring. Quality Stroke Does the patient have a stroke diagnosis?: No VTE Prior VTE?: No VTE Risk Level:: Medical - moderate - high VTE Device Contraindication: Treatment Not Indicated VTE Drug Contraindication: N/A - Med Ordered
[2025-07-14] MEDS: Potassium Chloride/H20 10 MEQ/100 ML PIGGYBACK 100 MEQ IV (00:47)
[2025-07-14 04:01] LABS: Hematocrit 42.2 % (42.0-52.0); Hemoglobin 14.2 g/dl (14.0-18.0); Mean Corpuscular HGB Conc 33.6 g/dl (31.0-36.0); Mean Corpuscular Hemoglobin 30.0 pg (27.0-33.0); Mean Corpuscular Volume 89.0 fL (80.0-98.0); NRBC Abs Auto 0.020 X10*3/uL (0.0-0.012); NRBC Pct Auto 0.1 /100WBC (0.0-0.2); Platelet Count 143 X10*3/uL (160-400); Red Blood Count 4.74 X10*6/uL (4.60-5.80); White Blood Count 29.0 X10*3/uL (4.8-10.8)
[2025-07-14 04:15] LABS: Alanine Aminotransferase 49 U/L (0-40); Albumin Level 3.4 g/dL (3.5-5.0); Alkaline Phosphatase 64 U/L (39-117); Anion Gap 14 (12-20); Aspartate Amino Transferase 80 U/L (5-37); Blood Urea Nitrogen 33 mg/dL (9-16); Calcium 8.7 mg/dL (8.4-10.2); Carbon Dioxide 23 mmol/L (22-29); Chloride 111 mmol/L (96-108); Creatinine Clr Calc Pharmacy 36.6; Estimated Glomerular Filt Rate 31; Potassium 3.2 mmol/L (3.3-5.1); Sodium 145 mmol/L (135-145); Total Protein 6.2 g/dL (6.5-8.0)
[2025-07-14 04:18] LABS: Lymphocytes Absolute Manual 0.3 X10*3/uL (1.2-4.9); Lymphocytes Percent Manual 1 % (20-40); Metamyelocytes Absolute 0.6 X10*3/uL; Metamyelocytes Percent 2 %; Monocytes Absolute Manual 1.2 X10*3/uL (0.1-1.2); Monocytes Percent Manual 4 % (2-11); Neutrophils Absolute Manual 27.0 X10*3/uL (2.0-8.3); Neutrophils Percent Manual 59 % (45-73)
[2025-07-14 04:21] LABS: RBC Morphology NORMAL; Toxic Vacuolation PRESENT
[2025-07-14 04:22] LABS: Band Neutrophils Percent 34 % (3-5)
--- NOTE | 2025-07-14 04:57 | HO.NURTONUR ---
Pt biba from home with reports of n/v/d, weakness, and not feeling well for a couple days. Per EMS pt was 88-89% on RA placed on 2L with improvement. Pt doess not require any O2 at home, denies fevers, chest pain, sob, abd pain or any other symptoms. Pt reports sick contacts at home, he states he lives with brother and ( currently admitted here [place] [facility] [place] Upon arrival to ED pt was noted to be febrile, tachycardic, and tachypneic. Initially pt did not require O2 but it was noted as pt fell asleep O2 droped to mid 80s, pt placed on 2L NC with improvement. Sepsis workup initiated. Labs in the ED revealed lactic 4.4, given IVF with improvement to 1.4, potassium 2.9, given IVF potassium chloride with improvement 3.2. Pt also received IV abx and tylenol. Pt reports chronic back pain he sees a chiropractor for, given valium and toradol, effective for pain. Pt is shaikh x3 able to make his needs known and able to use bedside urinal. When asked pt how he ambulates at home pt stated I have some trouble at times . Fall precautions in place. Pt family at bedside reports pt has CPAP at home for sleep apnea but unknown if pt is compliant. Family also reporting pt lives at home with son and and not his brother. When attempting to collect a urine sample, pt was able to use the urinal but it spilled on the bed, unable to obtain urine sample at this time. Pt has 20G IV in [facility] and [facility]. Labs: WBC- 13.3 --> 29.0 Band Neutrophils- 34 Potassium- 2.9 --> 3.2 BUN- 35 --> 33 Creatinine- 2.24 --> 2.09 Lactic- 4.4 --> 1.4 AST- 55 --> 80 ALT- 45 --> 49 Serology- Covid 19- negative Influenza A- negative Influenza B- negative Chest Xray: Impression: 1. No acute pulmonary disease. Abdomen/pelvis CT: IMPRESSION: No acute findings. Slightly redundant thick-walled urinary bladder which may indicate chronic bladder outlet obstruction. Alternatively thick-walled bladder could indicate cystitis. Hepatomegaly.
--- NOTE | 2025-07-14 06:37 | PHA.PROG ---
Admission Date/Time: July 14, 2025 00:03 Indication:Sepsis Weight in k.3 kg Adjusted body weight in Kg: [place] body weight in Kg: Obesity Dosing Indication % IBW: BMI 30.5 Serum Creatinine - Last 168 Hours 07/13/25 07/14/25 20:27 03:56 Creatinine 2.24 H 2.09 H Estimated CrCl and GFR - Last 168 Hours 07/13/25 07/14/25 20:27 03:56 Estim Creat Clear Calc 34.2 36.6 Estimated GFR 29 31 Vancomycin Loading Dose: 1500mg X1 Current Vancomycin Dosing Regimen: 1000mg Q24H Vancomycin Monitoring using AUC goal of 400 - 600 range with trough as surrogate marker: 503 Date and Time for next Vancomycin Level to be drawn: 07/15 @1900 Pharmacist Comments on Vancomycin Plan: Pt's Scr elevated levated but improved since first draw. BMI 30.5, and per indication starting off a little aggressive to get pt into range and then to be adjusted as needed. Vancomycin dosing will take advantage of [employer] as a clinical decision support tool that uses Bayesian modeling to calculate individual patient's pharmacokinetic parameters and forecast the patient's drug concentration time course with the target goal AUC 24 range of 400 - 600 mg/L/hr.
--- NOTE | 2025-07-14 09:51 | P.PNIM_ITS ---
Subjective Subjective Date of Service: 07/14/25 Interval History: weakness Physical Exam 2 Exam: Exam: General: Lethargic oriented x3, ill-appearing Resp: Diminished bilateral, no accessory muscles used CVS: S1,S2,RRR GI: soft, non tender, non distended Neuro: motor grossly intact Psych: appropriate affect, appropriate insight Vital Signs: Vital Signs: Last Vital Signs Temp 98.5 F 07/14/25 08:38 Pulse 80 07/14/25 08:38 Resp 18 07/14/25 08:38 BP 128/75 07/14/25 08:38 Pulse Ox 96 07/14/25 08:38 O2 Del Method CPAP 07/14/25 08:38 O2 Flow Rate 4 07/14/25 00:00 BMI result Body Mass Index 30.5 Objective Data Active Medications Acetaminophen (Acetaminophen 325 Mg Tablet) 975 mg PO Q6H PRN On Hold: 07/14/25 02:04 PRN Reason: Pain, Mild 1-3,fever,headache Calcium Carbonate (Calcium Carbonate 750 Mg Tab.Chew) 750 mg PO Q4H PRN PRN Reason: Heartburn Heparin Sodium (Porcine) (Heparin Sodium,Porcine 5,000 Unit/Ml Vial) 5,000 unit SUBCUT Q12H [facility] Last Admin: 07/14/25 08:45 Dose: 5,000 unit Documented By: DANIEL Hydromorphone HCl (Hydromorphone Hcl 0.5 Mg/0.5 Ml Syringe) 0.5 mg IVPUSH Q4H PRN; Protocol PRN Reason: Pain, Severe (Pain Scale 7-10) Acetaminophen (Ofirmev) 1,000 mg in 100 mls @ 400 mls/hr IV Q6H [facility] Last Admin: 07/14/25 08:17 Dose: 400 mls/hr Documented By: DANIEL Vancomycin HCl 1,000 mg/ (Sodium Chloride) 270 mls @ 270 mls/hr IV Q24H [facility] Piperacillin Sod/Tazobactam (Sod 3.375 gm/ Sodium Chloride) 50 mls @ 100 mls/hr IV Q6H [facility] Last Admin: 07/14/25 08:45 Dose: 100 mls/hr Documented By: DANIEL Magnesium Hydroxide (Milk Of Magnesia 30 Ml Oral.Susp) 30 ml PO DAILY PRN PRN Reason: Constipation Melatonin (Melatonin 3 Mg Tablet) 6 mg PO BEDTIME PRN PRN Reason: Insomnia Ondansetron HCl (Ondansetron Hcl 4 Mg/2 Ml Vial) 4 mg IVPUSH Q8H PRN PRN Reason: Nausea and Vomiting Oxycodone HCl (Oxycodone Hcl Immed Release 5 Mg Tablet) 5 mg PO Q6H PRN PRN Reason: Pain, Moderate(Pain Scale 4-6) Pharmacy Consult (Consult Rx Vancomycin Dosing) 1 each MISCELLANE DAILY PRN PRN Reason: Consult order Sodium Chloride (0.9 % Sodium Chloride Flush 3 Ml Syringe) 3 ml IVFLUSH QSHIFT [facility] Last Admin: 07/14/25 07:31 Dose: Not Given Documented By: LORA Non-Admin Reason: See Note Labs 07/14/25 03:56 07/14/25 03:56 Labs: Laboratory Results - last 24 hr 07/13/25 07/13/25 07/14/25 20:27 22:55 03:56 MCV 87.9 89.0 MCH 29.7 30.0 MCHC 33.8 33.6 RDW 12.9 13.0 Plt Count 192 143 L D MPV 11.9 11.8 Immature Gran % (Auto) 0.9 H Cancelled Neut % (Auto) 95.2 H Cancelled Lymph % (Auto) 2.0 L Cancelled [place] % (Auto) 0.6 L Cancelled Eos % (Auto) 0.7 Cancelled Baso % (Auto) 0.6 Cancelled Lymph # (Auto) 0.3 L Cancelled [place] # (Auto) 0.1 Cancelled Eos # (Auto) 0.1 Cancelled Baso # (Auto) 0.1 Cancelled Abs Immat Gran (auto) 0.12 H Cancelled Absolute Neuts (auto) 12.7 H Cancelled Absolute Nucleated RBC 0.000 0.020 H Nucleated RBC % (auto) 0.0 0.1 Neutrophils % (Manual) 59 Band Neutrophils % 34 H Lymphocytes % (Manual) 1 L Monocytes % (Manual) 4 Metamyelocytes % 2 Abs Neuts (Manual) 27.0 H Lymphocytes # (Manual) 0.3 L Monocytes # (Manual) 1.2 Metamyelocytes # 0.6 Toxic Vacuolation PRESENT Platelet Estimate NORMAL Plt Morphology Comment NORMAL RBC Morphology NORMAL Smear Tech's Comments VERIFIED Anion Gap 18 14 Estim Creat Clear Calc 34.2 36.6 Estimated GFR 29 31 Random Glucose 119 H 93 Lactic Acid 4.4 H* Lactic Acid F/U @ 2Hr 1.4 Calcium 9.0 8.7 Magnesium 1.7 Total Bilirubin 0.9 0.6 AST 55 H 80 H ALT 45 H 49 H Alkaline Phosphatase 112 64 Total Protein 7.0 6.2 L Albumin 3.9 3.4 L COVID-19 (ACACIA) Negative COVID-19 Clin Com See Note Influenza Type A (COLTON) Negative Influenza Type B ([facility]TON) Negative Influenza A & B Note See Note Assessment and Plan (1) RAUL (acute kidney injury): Status: Acute Plan 75M PMH sarcoidosis, hypertension, hyperlipidemia, AMRIK on CPAP at night, BPH, recurrent UTI, chronic back pain presented with nausea vomiting and fever Sepsis and acute hypoxic respiratory failure due to urinary tract infection Continue vancomycin and Zosyn, follow up cultures, follow up respiratory viral panel Wean oxygen as tolerated Acute kidney injury Likely ATN due to sepsis IV hydration, rule out obstruction bladder scans, monitor Acute hypokalemia Replace and monitor Hypertension BP meds held for severe sepsis AMRIK CPAP at night DVT prophylaxis with heparin subQ Full code reason for continued hospitalization: Awaiting defervescence Quality Stroke Does the patient have a stroke diagnosis?: No VTE Prior VTE?: No VTE Risk Level:: Medical - moderate - high VTE Device Contraindication: Treatment Not Indicated VTE Drug Contraindication: N/A - Med Ordered
[2025-07-14 10:15] LABS: Chlamydia pneumoniae PCR Not Detected (Not Detect.); Coronavirus 229E PCR Not Detected (Not Detect.); Coronavirus HKU1 PCR Not Detected (Not Detect.); Coronavirus NL63 PCR Not Detected (Not Detect.); Coronavirus OC43 PCR Not Detected (Not Detect.); RSV PCR Not Detected (Not Detect.); Rhino/Enterovirus PCR Not Detected (Not Detect.)
[2025-07-14 10:32] LABS: Influenza A H1 PCR Not Detected (Not Detect.); Influenza A H1-2009 PCR Not Detected (Not Detect.); Influenza A H3 PCR Not Detected (Not Detect.); SARS-CoV-2 PCR Not Detected (Not Detect.)
--- NOTE | 2025-07-14 11:08 | PC.NURSE ---
Assumed care of patient at 0645. Patient resting in bed with CPAP on. VSS on monitor. Afrebrile with rectal and oral temps. Continuing IV tylenol scheduled with IV antibiotics. Patient with no spontaneous void for 4 hours. Bladder scanned for >600mLs. Order for straight cath. Straight cathed for 700 mLs. UA sent down to lab.
[2025-07-14 11:24] LABS: Appearance Urine Cloudy; Glucose Urine UA Negative (Negative); PH 7.5 (5.0-9.0); Specific Gravity - Urine 1.010 (1.005-1.025); UMIC TRIGGER UACC YES
[2025-07-14 11:38] LABS: UACC Culture Trigger YES
--- NOTE | 2025-07-14 13:55 | MHC.CM.PN ---
IMM 07/14/25, Pt lives with his and son, he does not use home health services or DME. PCP confirmed: Jackeline Garcia MD. HCP will be his , he will complete form here and it will be added to chart. Family to transport home at DC. DCP: home, self care, CM to follow for DC needs.
[2025-07-14] MEDS: 0.9 % Sodium Chloride Flush 3 ML SYRINGE IVFLUSH ×2 (14:44→21:40)
--- NOTE | 2025-07-14 16:57 | PC.NURSE ---
pt qshift bladder scan for 359 mL, encouraged patient to void. MD aware, no new orders at this time.
--- NOTE | 2025-07-14 17:27 | PHA.MEDREC ---
Pharmacy Consult ? Medication Reconciliation Pharmacy has completed the medication reconciliation. Spoke to patient's son Jaspal via phone [phone] who was able to check patient's med bottles to confirm medication list. He does not see a bottle for tamsulosin so it was taken off patient's med list. He was unsure of when patient last took his medications.
[2025-07-14] MEDS: oxyCODONE HCl Immed Release 5 MG TABLET PO (23:28)
[2025-07-15] VITALS (8 sets, daily range): BP systolic 131–183; BP diastolic 68–99; PULSE 87–102; RESP 14–20; TEMP 36.2–37.3; O2SAT 90–97
[2025-07-15 06:40] LABS: MANUAL DIFF FLAG NO
[2025-07-15 06:46] LABS: Hematocrit 43.8 % (42.0-52.0); Hemoglobin 14.4 g/dl (14.0-18.0); Imm Gran Abs Auto 0.50 X10*3/uL (0.00-0.03); Imm Gran Pct Auto 2.3 % (0.0-0.4); Lymphocytes Absolute Auto 1.0 X10*3/uL (1.2-4.9); Mean Corpuscular HGB Conc 32.9 g/dl (31.0-36.0); Mean Corpuscular Hemoglobin 29.8 pg (27.0-33.0); Mean Corpuscular Volume 90.5 fL (80.0-98.0); NRBC Abs Auto 0.000 X10*3/uL (0.0-0.012); NRBC Pct Auto 0.0 /100WBC (0.0-0.2); Platelet Count 133 X10*3/uL (160-400); Red Blood Count 4.84 X10*6/uL (4.60-5.80); White Blood Count 21.5 X10*3/uL (4.8-10.8)
[2025-07-15 07:46] LABS: Alanine Aminotransferase 62 U/L (0-40); Albumin Level 3.7 g/dL (3.5-5.0); Alkaline Phosphatase 90 U/L (39-117); Anion Gap 14 (12-20); Aspartate Amino Transferase 87 U/L (5-37); Blood Urea Nitrogen 29 mg/dL (9-16); Calcium 8.9 mg/dL (8.4-10.2); Carbon Dioxide 25 mmol/L (22-29); Chloride 107 mmol/L (96-108); Creatinine Clr Calc Pharmacy 49.0; Estimated Glomerular Filt Rate 43; Magnesium 1.8 mg/dL (1.6-2.6); Potassium 3.3 mmol/L (3.3-5.1); Sodium 143 mmol/L (135-145); Total Protein 6.7 g/dL (6.5-8.0)
[2025-07-15] MEDS: oxyCODONE HCl Immed Release 5 MG TABLET PO ×3 (08:27→23:54)
[2025-07-15] MEDS: Aspirin Enteric Coated 81 MG TABLET.DR PO (08:28)
[2025-07-15] MEDS: 0.9 % Sodium Chloride Flush 3 ML SYRINGE IVFLUSH ×3 (08:29→23:12)
--- NOTE | 2025-07-15 10:35 | HO.PM.IMPN ---
Subjective Subjective Date of Service: 07/15/25 Interval History: weakness Physical Exam Exam: Exam: General: Lethargic oriented x3, ill-appearing Resp: Diminished bilateral, no accessory muscles used CVS: S1,S2,RRR GI: soft, non tender, non distended Neuro: motor grossly intact Psych: appropriate affect, appropriate insight Vital Signs: Vital Signs: Last Vital Signs Temp 98.3 F 07/15/25 08:00 Pulse 91 07/15/25 08:00 Resp 20 07/15/25 08:00 BP 160/79 H 07/15/25 08:00 Pulse Ox 91 L 07/15/25 08:00 O2 Del Method Room Air 07/15/25 08:00 O2 Flow Rate 4 07/14/25 00:00 BMI result Body Mass Index 30.8 Objective Data Active Medications Acetaminophen (Acetaminophen 325 Mg Tablet) 975 mg PO Q6H PRN On Hold: 07/14/25 02:04 PRN Reason: Pain, Mild 1-3,fever,headache Amlodipine Besylate (Amlodipine Besylate 10 Mg Tablet) 10 mg PO DAILY [facility]; Protocol Last Admin: 07/15/25 08:28 Dose: 10 mg Documented By: RHONDA Aspirin (Aspirin Enteric Coated 81 Mg Tablet.) 81 mg PO DAILY [facility] Last Admin: 07/15/25 08:28 Dose: 81 mg Documented By: RHONDA Calcium Carbonate (Calcium Carbonate 750 Mg Tab.Chew) 750 mg PO Q4H PRN PRN Reason: Heartburn Fenofibrate (Fenofibrate 160 Mg Tablet) 160 mg PO DAILY [facility] Last Admin: 07/15/25 08:28 Dose: 160 mg Documented By: RHONDA Finasteride (Finasteride 5 Mg Tablet) 5 mg PO DAILY [facility] Last Admin: 07/15/25 08:23 Dose: 5 mg Documented By: RHONDA Heparin Sodium (Porcine) (Heparin Sodium,Porcine 5,000 Unit/Ml Vial) 5,000 unit SUBCUT Q12H [facility] Last Admin: 07/15/25 08:23 Dose: 5,000 unit Documented By: RHONDA Hydromorphone HCl (Hydromorphone Hcl 0.5 Mg/0.5 Ml Syringe) 0.5 mg IVPUSH Q4H PRN; Protocol PRN Reason: Pain, Severe (Pain Scale 7-10) Last Admin: 07/15/25 02:26 Dose: 0.5 mg Documented By: CATRACHO Piperacillin Sod/Tazobactam (Sod 3.375 gm/ Sodium Chloride) 50 mls @ 100 mls/hr IV Q6H [facility] Last Infusion: 07/15/25 08:52 Dose: Infused Documented By: RHONDA Magnesium Hydroxide (Milk Of Magnesia 30 Ml Oral.Susp) 30 ml PO DAILY PRN PRN Reason: Constipation Melatonin (Melatonin 3 Mg Tablet) 6 mg PO BEDTIME PRN PRN Reason: Insomnia Multivitamins/Vitamin C (Multivitamin Tablet) 1 tab PO DAILY [facility] Last Admin: 07/15/25 08:28 Dose: 1 tab Documented By: RHONDA Omeprazole (Omeprazole 40 Mg Capsule.Dr) 40 mg PO BID@0630,1630 [facility] Last Admin: 07/15/25 06:06 Dose: 40 mg Documented By: CATRACHO Ondansetron HCl (Ondansetron Hcl 4 Mg/2 Ml Vial) 4 mg IVPUSH Q8H PRN PRN Reason: Nausea and Vomiting Oxycodone HCl (Oxycodone Hcl Immed Release 5 Mg Tablet) 5 mg PO Q6H PRN PRN Reason: Pain, Moderate(Pain Scale 4-6) Last Admin: 07/15/25 08:27 Dose: 5 mg Documented By: RHONDA Sodium Chloride (0.9 % Sodium Chloride Flush 3 Ml Syringe) 3 ml IVFLUSH QSHIFT [facility] Last Admin: 07/15/25 08:29 Dose: 3 ml Documented By: RHONDA Tamsulosin HCl (Tamsulosin Hcl 0.4 Mg Capsule) 0.4 mg PO DAILY [facility] Last Admin: 07/15/25 08:23 Dose: 0.4 mg Documented By: RHONDA Labs 07/15/25 06:09 07/15/25 06:09 Labs: Laboratory Results - last 24 hr 07/14/25 07/15/25 07/15/25 11:05 06:09 06:09 MCV 90.5 Cancelled MCH 29.8 MCHC RDW Plt Count MPV Immature Gran % (Auto) Neut % (Auto) Lymph % (Auto) [place] % (Auto) Eos % (Auto) Baso % (Auto) Lymph # (Auto) [place] # (Auto) Eos # (Auto) Baso # (Auto) Abs Immat Gran (auto) Absolute Neuts (auto) Absolute Nucleated RBC Nucleated RBC % (auto) Anion Gap Estim Creat Clear Calc Estimated GFR Random Glucose Calcium Magnesium Total Bilirubin Direct Bilirubin AST ALT Alkaline Phosphatase Total Protein Albumin Urine Color Yellow Urine Appearance Cloudy Urine pH 7.5 Ur Specific [place] 1.010 Urine Protein 30 (1+) H Urine Glucose (UA) Negative Urine Ketones Negative Urine Blood Moderate (2+) H Urine Nitrite Positive H Ur Leukocyte Esterase Large (3+) H Urine RBC 3-5 H Urine WBC >50 H Ur Squamous Epith Cells 0-2 Urine Bacteria None Seen Hyaline Casts 0-2 07/15/25 07/15/25 07/15/25 06:09 06:09 06:09 MCV MCH Cancelled MCHC 32.9 Cancelled RDW 13.2 Cancelled Plt Count 133 L MPV Immature Gran % (Auto) Neut % (Auto) Lymph % (Auto) [place] % (Auto) Eos % (Auto) Baso % (Auto) Lymph # (Auto) [place] # (Auto) Eos # (Auto) Baso # (Auto) Abs Immat Gran (auto) Absolute Neuts (auto) Absolute Nucleated RBC Nucleated RBC % (auto) Anion Gap Estim Creat Clear Calc Estimated GFR Random Glucose Calcium Magnesium Total Bilirubin Direct Bilirubin AST ALT Alkaline Phosphatase Total Protein Albumin Urine Color Urine Appearance Urine pH Ur Specific [place] Urine Protein Urine Glucose (UA) Urine Ketones Urine Blood Urine Nitrite Ur Leukocyte Esterase Urine RBC Urine WBC Ur Squamous Epith Cells Urine Bacteria Hyaline Casts 07/15/25 07/15/25 07/15/25 06:09 06:09 06:09 MCV MCH MCHC RDW Plt Count Cancelled MPV 12.0 Cancelled Immature Gran % (Auto) 2.3 H Neut % (Auto) 85.4 H Lymph % (Auto) 4.8 L [place] % (Auto) 4.3 Eos % (Auto) 2.6 Baso % (Auto) 0.6 Lymph # (Auto) 1.0 L [place] # (Auto) 0.9 Eos # (Auto) 0.6 H Baso # (Auto) 0.1 Abs Immat Gran (auto) 0.50 H Absolute Neuts (auto) 18.4 H Absolute Nucleated RBC 0.000 Cancelled Nucleated RBC % (auto) 0.0 Anion Gap Estim Creat Clear Calc Estimated GFR Random Glucose Calcium Magnesium Total Bilirubin Direct Bilirubin AST ALT Alkaline Phosphatase Total Protein Albumin Urine Color Urine Appearance Urine pH Ur Specific [place] Urine Protein Urine Glucose (UA) Urine Ketones Urine Blood Urine Nitrite Ur Leukocyte Esterase Urine RBC Urine WBC Ur Squamous Epith Cells Urine Bacteria Hyaline Casts 07/15/25 06:09 MCV MCH MCHC RDW Plt Count MPV Immature Gran % (Auto) Neut % (Auto) Lymph % (Auto) [place] % (Auto) Eos % (Auto) Baso % (Auto) Lymph # (Auto) [place] # (Auto) Eos # (Auto) Baso # (Auto) Abs Immat Gran (auto) Absolute Neuts (auto) Absolute Nucleated RBC Nucleated RBC % (auto) Cancelled Anion Gap 14 Estim Creat Clear Calc 49.0 Estimated GFR 43 Random Glucose 87 Calcium 8.9 Magnesium 1.8 Total Bilirubin 0.8 Direct Bilirubin 0.4 AST 87 H ALT 62 H Alkaline Phosphatase 90 Total Protein 6.7 Albumin 3.7 Urine Color Urine Appearance Urine pH Ur Specific [place] Urine Protein Urine Glucose (UA) Urine Ketones Urine Blood Urine Nitrite Ur Leukocyte Esterase Urine RBC Urine WBC Ur Squamous Epith Cells Urine Bacteria Hyaline Casts Microbiology Microbiology Results: Microbiology 07/13/25 20:26 Blood Culture - Preliminary Blood - Venous Gram negative ruel 07/13/25 20:27 Blood Culture - Preliminary Blood - Venous Gram negative ruel Assessment and Plan (1) RAUL (acute kidney injury): Status: Acute Plan 75M PMH sarcoidosis, hypertension, hyperlipidemia, AMRIK on CPAP at night, BPH, recurrent UTI, chronic back pain presented with nausea vomiting and fever Sepsis and acute hypoxic respiratory failure due to urinary tract infection complicated by GNR Continue Gennysyn, dc vanc, follow up cultures Wean oxygen as tolerated urinary retention straight caths, flomax, proscar Acute kidney injury Likely ATN due to sepsis IV hydration, monitor Acute hypokalemia Replace and monitor Hypertension BP meds held for severe sepsis AMRIK CPAP at night DVT prophylaxis with heparin subQ Full code reason for continued hospitalization: Awaiting defervescence Quality Stroke Does the patient have a stroke diagnosis?: No VTE Prior VTE?: No VTE Risk Level:: Medical - moderate - high VTE Device Contraindication: Treatment Not Indicated VTE Drug Contraindication: N/A - Med Ordered
[2025-07-15] MEDS: Lidocaine 4 % Patch ADH..PATCH 1 PATCH TRANSDERMA (16:00)
[2025-07-16] VITALS (9 sets, daily range): BP systolic 145–172; BP diastolic 78–93; PULSE 74–93; RESP 16–20; TEMP 36.4–36.9; O2SAT 91–95
[2025-07-16] MEDS: oxyCODONE HCl Immed Release 5 MG TABLET PO ×2 (07:49→17:17)
[2025-07-16] MEDS: Lidocaine 4 % Patch ADH..PATCH 1 PATCH TRANSDERMA (07:50)
[2025-07-16] MEDS: Aspirin Enteric Coated 81 MG TABLET.DR PO (07:50)
[2025-07-16] MEDS: 0.9 % Sodium Chloride Flush 3 ML SYRINGE IVFLUSH ×2 (07:51→23:17)
[2025-07-16 08:00] LABS: MANUAL DIFF FLAG NO
[2025-07-16 08:04] LABS: Hematocrit 41.3 % (42.0-52.0); Hemoglobin 13.6 g/dl (14.0-18.0); Mean Corpuscular HGB Conc 32.9 g/dl (31.0-36.0); Mean Corpuscular Hemoglobin 29.8 pg (27.0-33.0); Mean Corpuscular Volume 90.6 fL (80.0-98.0); NRBC Abs Auto 0.000 X10*3/uL (0.0-0.012); NRBC Pct Auto 0.0 /100WBC (0.0-0.2); Platelet Count 134 X10*3/uL (160-400); Red Blood Count 4.56 X10*6/uL (4.60-5.80); White Blood Count 13.6 X10*3/uL (4.8-10.8)
[2025-07-16 08:08] LABS: Hematocrit 41.0 % (42.0-52.0); Hemoglobin 13.6 g/dl (14.0-18.0); Imm Gran Abs Auto 0.13 X10*3/uL (0.00-0.03); Imm Gran Pct Auto 1.0 % (0.0-0.4); Lymphocytes Absolute Auto 1.3 X10*3/uL (1.2-4.9); Mean Corpuscular HGB Conc 33.2 g/dl (31.0-36.0); Mean Corpuscular Hemoglobin 29.9 pg (27.0-33.0); Mean Corpuscular Volume 90.1 fL (80.0-98.0); NRBC Abs Auto 0.000 X10*3/uL (0.0-0.012); NRBC Pct Auto 0.0 /100WBC (0.0-0.2); Platelet Count 127 X10*3/uL (160-400); Red Blood Count 4.55 X10*6/uL (4.60-5.80); White Blood Count 13.4 X10*3/uL (4.8-10.8)
[2025-07-16 08:40] LABS: Alanine Aminotransferase 48 U/L (0-40); Albumin Level 3.5 g/dL (3.5-5.0); Alkaline Phosphatase 78 U/L (39-117); Anion Gap 12 (12-20); Aspartate Amino Transferase 61 U/L (5-37); Blood Urea Nitrogen 18 mg/dL (9-16); Calcium 8.9 mg/dL (8.4-10.2); Carbon Dioxide 29 mmol/L (22-29); Chloride 103 mmol/L (96-108); Creatinine Clr Calc Pharmacy 68.1; Estimated Glomerular Filt Rate > 60; Magnesium 1.9 mg/dL (1.6-2.6); Potassium 3.5 mmol/L (3.3-5.1); Sodium 140 mmol/L (135-145); Total Protein 6.6 g/dL (6.5-8.0)
--- NOTE | 2025-07-16 11:03 | P.PNIM_ITS ---
Subjective Subjective Date of Service: 07/16/25 Interval History: weakness Physical Exam 2 Exam: Exam: General: Lethargic oriented x3, ill-appearing Resp: Diminished bilateral, no accessory muscles used CVS: S1,S2,RRR GI: soft, non tender, non distended Neuro: motor grossly intact Psych: appropriate affect, appropriate insight Vital Signs: Vital Signs: Last Vital Signs Temp 97.6 F 07/16/25 07:45 Pulse 85 07/16/25 07:45 Resp 20 07/16/25 07:45 BP 167/93 H 07/16/25 07:45 Pulse Ox 91 L 07/16/25 07:45 O2 Del Method Room Air 07/16/25 07:45 O2 Flow Rate 4 07/14/25 00:00 BMI result Body Mass Index 30.8 Objective Data Active Medications Acetaminophen (Acetaminophen 325 Mg Tablet) 975 mg PO Q6H PRN On Hold: 07/14/25 02:04 PRN Reason: Pain, Mild 1-3,fever,headache Amlodipine Besylate (Amlodipine Besylate 10 Mg Tablet) 10 mg PO DAILY [facility]; Protocol Last Admin: 07/16/25 07:49 Dose: 10 mg Documented By: RHONDA Aspirin (Aspirin Enteric Coated 81 Mg Tablet.Dr) 81 mg PO DAILY [facility] Last Admin: 07/16/25 07:50 Dose: 81 mg Documented By: RHONDA Calcium Carbonate (Calcium Carbonate 750 Mg Tab.Chew) 750 mg PO Q4H PRN PRN Reason: Heartburn Fenofibrate (Fenofibrate 160 Mg Tablet) 160 mg PO DAILY [facility] Last Admin: 07/16/25 07:51 Dose: 160 mg Documented By: RHONDA Finasteride (Finasteride 5 Mg Tablet) 5 mg PO DAILY [facility] Last Admin: 07/16/25 07:49 Dose: 5 mg Documented By: RHONDA Heparin Sodium (Porcine) (Heparin Sodium,Porcine 5,000 Unit/Ml Vial) 5,000 unit SUBCUT Q12H [facility] Last Admin: 07/16/25 07:51 Dose: 5,000 unit Documented By: RHONDA Hydromorphone HCl (Hydromorphone Hcl 0.5 Mg/0.5 Ml Syringe) 0.5 mg IVPUSH Q4H PRN; Protocol PRN Reason: Pain, Severe (Pain Scale 7-10) Last Admin: 07/16/25 04:56 Dose: 0.5 mg Documented By: CATRACHO Levofloxacin (Levofloxacin 750 Mg Tablet) 750 mg PO Q24H [facility] Lidocaine (Lidocaine 4 % Patch Adh..Patch) 1 patch TRANSDERMA DAILY [facility]; Protocol Last Admin: 07/16/25 07:50 Dose: 1 patch Documented By: RHONDA Magnesium Hydroxide (Milk Of Magnesia 30 Ml Oral.Susp) 30 ml PO DAILY PRN PRN Reason: Constipation Melatonin (Melatonin 3 Mg Tablet) 6 mg PO BEDTIME PRN PRN Reason: Insomnia Multivitamins/Vitamin C (Multivitamin Tablet) 1 tab PO DAILY [facility] Last Admin: 07/16/25 07:50 Dose: 1 tab Documented By: RHONDA Omeprazole (Omeprazole 40 Mg Capsule.) 40 mg PO BID@0630,1630 [facility] Last Admin: 07/16/25 04:57 Dose: 40 mg Documented By: CATRACHO Comments: per pt request medication given early Ondansetron HCl (Ondansetron Hcl 4 Mg/2 Ml Vial) 4 mg IVPUSH Q8H PRN PRN Reason: Nausea and Vomiting Oxycodone HCl (Oxycodone Hcl Immed Release 5 Mg Tablet) 5 mg PO Q6H PRN PRN Reason: Pain, Moderate(Pain Scale 4-6) Last Admin: 07/16/25 07:49 Dose: 5 mg Documented By: RHONDA Sodium Chloride (0.9 % Sodium Chloride Flush 3 Ml Syringe) [facility] Last Admin: 07/16/25 07:51 Dose: 3 ml Documented By: RHONDA Tamsulosin HCl (Tamsulosin Hcl 0.4 Mg Capsule) 0.4 mg PO DAILY [facility] Last Admin: 07/16/25 07:49 Dose: 0.4 mg Documented By: RHONDA Labs 07/16/25 06:53 07/16/25 06:53 Labs: Laboratory Results - last 24 hr 07/16/25 07/16/25 07/16/25 06:53 06:53 06:53 MCV 90.1 90.6 MCH 29.9 29.8 MCHC 33.2 RDW Plt Count MPV Immature Gran % (Auto) Neut % (Auto) Lymph % (Auto) [place] % (Auto) Eos % (Auto) Baso % (Auto) Lymph # (Auto) [place] # (Auto) Eos # (Auto) Baso # (Auto) Abs Immat Gran (auto) Absolute Neuts (auto) Absolute Nucleated RBC Nucleated RBC % (auto) Anion Gap Estim Creat Clear Calc Estimated GFR Random Glucose Calcium Magnesium Total Bilirubin AST ALT Alkaline Phosphatase Total Protein Albumin 07/16/25 07/16/25 07/16/25 06:53 06:53 06:53 MCV MCH MCHC 32.9 RDW 12.8 12.8 Plt Count 127 L 134 L MPV 12.2 Immature Gran % (Auto) Neut % (Auto) Lymph % (Auto) [place] % (Auto) Eos % (Auto) Baso % (Auto) Lymph # (Auto) [place] # (Auto) Eos # (Auto) Baso # (Auto) Abs Immat Gran (auto) Absolute Neuts (auto) Absolute Nucleated RBC Nucleated RBC % (auto) Anion Gap Estim Creat Clear Calc Estimated GFR Random Glucose Calcium Magnesium Total Bilirubin AST ALT Alkaline Phosphatase Total Protein Albumin 07/16/25 07/16/25 07/16/25 06:53 06:53 06:53 MCV MCH MCHC RDW Plt Count MPV 12.1 Immature Gran % (Auto) 1.0 H Neut % (Auto) 78.6 H Lymph % (Auto) 10.0 L [place] % (Auto) 5.3 Eos % (Auto) 4.4 H Baso % (Auto) 0.7 Lymph # (Auto) 1.3 [place] # (Auto) 0.7 Eos # (Auto) 0.6 H Baso # (Auto) 0.1 Abs Immat Gran (auto) 0.13 H Absolute Neuts (auto) 10.5 H Absolute Nucleated RBC 0.000 0.000 Nucleated RBC % (auto) 0.0 0.0 Anion Gap 12 Estim Creat Clear Calc 68.1 Estimated GFR > 60 Random Glucose 82 Calcium 8.9 Magnesium 1.9 Total Bilirubin 0.7 AST 61 H ALT 48 H Alkaline Phosphatase 78 Total Protein 6.6 Albumin 3.5 Microbiology Microbiology Results: Microbiology 07/14/25 Unknown Urine Culture - Final Urine Catheterized - Straight Catheter No growth. 07/13/25 20:26 Blood Culture - Final Blood - Venous Morg morganii ssp sibonii 07/13/25 20:27 Blood Culture - Final Blood - Venous Juveg gregg pitt Assessment and Plan (1) RAUL (acute kidney injury): Status: Acute Plan 75M PMH sarcoidosis, hypertension, hyperlipidemia, AMRIK on CPAP at night, BPH, recurrent UTI, chronic back pain presented with nausea vomiting and fever Sepsis and acute hypoxic respiratory failure due to urinary tract infection complicated by morganella bacteremia changed to levaquin now on room air urinary retention santos placed, flomax, proscar outpatient follow up Acute kidney injury Likely ATN due to sepsis IV hydration, much improved Acute hypokalemia Replaced Hypertension amlodipine AMRIK CPAP at night DVT prophylaxis with heparin subQ Full code reason for continued hospitalization: ill appearing, pt eval, borderline oxygenation Quality Stroke Does the patient have a stroke diagnosis?: No VTE Prior VTE?: No VTE Risk Level:: Medical - moderate - high VTE Device Contraindication: Treatment Not Indicated VTE Drug Contraindication: N/A - Med Ordered
[2025-07-17] VITALS (7 sets, daily range): BP systolic 125–180; BP diastolic 70–94; PULSE 82–92; RESP 18–21; TEMP 36.3–36.8; O2SAT 92–97
[2025-07-17 07:36] LABS: Hematocrit 44.4 % (42.0-52.0); Hemoglobin 15.1 g/dl (14.0-18.0); Mean Corpuscular HGB Conc 34.0 g/dl (31.0-36.0); Mean Corpuscular Hemoglobin 29.7 pg (27.0-33.0); Mean Corpuscular Volume 87.4 fL (80.0-98.0); NRBC Abs Auto 0.000 X10*3/uL (0.0-0.012); NRBC Pct Auto 0.0 /100WBC (0.0-0.2); Platelet Count 156 X10*3/uL (160-400); Red Blood Count 5.08 X10*6/uL (4.60-5.80); White Blood Count 9.6 X10*3/uL (4.8-10.8)
[2025-07-17 07:57] LABS: Anion Gap 14 (12-20); Blood Urea Nitrogen 15 mg/dL (9-16); Calcium 9.2 mg/dL (8.4-10.2); Carbon Dioxide 25 mmol/L (22-29); Chloride 104 mmol/L (96-108); Creatinine Clr Calc Pharmacy 79.3; Estimated Glomerular Filt Rate > 60; Potassium 3.2 mmol/L (3.3-5.1); Sodium 140 mmol/L (135-145)
[2025-07-17 09:39] LABS: Alanine Aminotransferase 45 U/L (0-40); Albumin Level 3.7 g/dL (3.5-5.0); Alkaline Phosphatase 98 U/L (39-117); Aspartate Amino Transferase 62 U/L (5-37); Magnesium 1.9 mg/dL (1.6-2.6); Total Protein 6.9 g/dL (6.5-8.0)
[2025-07-17] MEDS: Lidocaine 4 % Patch ADH..PATCH 1 PATCH TRANSDERMA (10:09)
[2025-07-17] MEDS: Aspirin Enteric Coated 81 MG TABLET.DR PO (10:09)
[2025-07-17] MEDS: 0.9 % Sodium Chloride Flush 3 ML SYRINGE IVFLUSH ×3 (10:12→21:31)
[2025-07-17] MEDS: Potassium Chloride ER 20 MEQ TAB.ER.PRT PO (10:51)
--- NOTE | 2025-07-17 15:50 | MHC.CM.PN ---
CM met with pt. twice today to discuss PT rec of STR, initially he declined to go, his sister was visiting and she said she thought it was a good idea, I checked back later with pt. and he agreed to go based on his sister's comments. Referrals out.
--- NOTE | 2025-07-17 16:04 | P.PNIM_ITS ---
Subjective Subjective Date of Service: 07/17/25 Interval History: feels weak PT recommends STR but pt declines Don in place Review of Systems Review of Systems: Yes all other systems are reviewed and are negative Physical Exam 2 Vital Signs: Vital Signs: Last Vital Signs Temp 97.3 F 07/17/25 12:00 Pulse 88 07/17/25 12:00 Resp 18 07/17/25 12:00 BP 154/84 H 07/17/25 12:00 Pulse Ox 94 07/17/25 12:00 O2 Del Method Room Air 07/17/25 12:00 O2 Flow Rate 4 07/14/25 00:00 BMI result Body Mass Index 30.8 Gen: weak-appearing HEENT: sclera anicteric, moist mucus membranes Neck: supple Lungs: clear to auscultation bilaterally Heart: regular rate and rhythm, no murmurs Abd: soft, non-tender, non-distended : Don draining clear urine Ext: no edema Skin: warm/well-perfused Neuro: alert and oriented x3, no focal findings Psych: appropriate affect Objective Data Active Medications Acetaminophen (Acetaminophen 325 Mg Tablet) 975 mg PO Q6H PRN On Hold: 07/14/25 02:04 PRN Reason: Pain, Mild 1-3,fever,headache Amlodipine Besylate (Amlodipine Besylate 10 Mg Tablet) 10 mg PO DAILY [facility]; Protocol Last Admin: 07/17/25 10:08 Dose: 10 mg Documented By: ISAAK Aspirin (Aspirin Enteric Coated 81 Mg Tablet.Dr) 81 mg PO DAILY [facility] Last Admin: 07/17/25 10:09 Dose: 81 mg Documented By: ISAAK Calcium Carbonate (Calcium Carbonate 750 Mg Tab.Chew) 750 mg PO Q4H PRN PRN Reason: Heartburn Fenofibrate (Fenofibrate 160 Mg Tablet) 160 mg PO DAILY [facility] Last Admin: 07/17/25 10:08 Dose: 160 mg Documented By: ISAAK Finasteride (Finasteride 5 Mg Tablet) 5 mg PO DAILY [facility] Last Admin: 07/17/25 10:09 Dose: 5 mg Documented By: ISAAK Heparin Sodium (Porcine) (Heparin Sodium,Porcine 5,000 Unit/Ml Vial) 5,000 unit SUBCUT Q12H [facility] Last Admin: 07/17/25 10:09 Dose: 5,000 unit Documented By: ISAAK Hydromorphone HCl (Hydromorphone Hcl 0.5 Mg/0.5 Ml Syringe) 0.5 mg IVPUSH Q4H PRN; Protocol PRN Reason: Pain, Severe (Pain Scale 7-10) Last Admin: 07/16/25 14:14 Dose: 0.5 mg Documented By: RHONDA Levofloxacin (Levofloxacin 750 Mg Tablet) 750 mg PO Q24H [facility] Last Admin: 07/17/25 10:08 Dose: 750 mg Documented By: ISAAK Lidocaine (Lidocaine 4 % Patch Adh..Patch) 1 patch TRANSDERMA DAILY [facility]; Protocol Last Admin: 07/17/25 10:09 Dose: 1 patch Documented By: ISAAK Magnesium Hydroxide (Milk Of Magnesia 30 Ml Oral.Susp) 30 ml PO DAILY PRN PRN Reason: Constipation Melatonin (Melatonin 3 Mg Tablet) 6 mg PO BEDTIME PRN PRN Reason: Insomnia Multivitamins/Vitamin C (Multivitamin Tablet) 1 tab PO DAILY [facility] Last Admin: 07/17/25 10:09 Dose: 1 tab Documented By: ISAAK Omeprazole (Omeprazole 40 Mg Capsule.Dr) 40 mg PO BID@0630,1630 [facility] Last Admin: 07/17/25 05:52 Dose: Not Given Documented By: ALKA Non-Admin Reason: Patient Asleep Ondansetron HCl (Ondansetron Hcl 4 Mg/2 Ml Vial) 4 mg IVPUSH Q8H PRN PRN Reason: Nausea and Vomiting Oxycodone HCl (Oxycodone Hcl Immed Release 5 Mg Tablet) 5 mg PO Q6H PRN PRN Reason: Pain, Moderate(Pain Scale 4-6) Last Admin: 07/16/25 17:17 Dose: 5 mg Documented By: RHONDA Sodium Chloride (0.9 % Sodium Chloride Flush 3 Ml Syringe) 3 ml IVFLUSH QSHIFT [facility] Last Admin: 07/17/25 10:12 Dose: 3 ml Documented By: ISAAK Tamsulosin HCl (Tamsulosin Hcl 0.4 Mg Capsule) 0.4 mg PO DAILY [facility] Last Admin: 07/17/25 10:08 Dose: 0.4 mg Documented By: ISAAK Labs 07/17/25 06:26 07/17/25 06:26 Labs: Laboratory Results - last 24 hr 07/17/25 06:26 MCV 87.4 MCH 29.7 MCHC 34.0 RDW 12.4 Plt Count 156 L MPV 11.7 Absolute Nucleated RBC 0.000 Nucleated RBC % (auto) 0.0 Anion Gap 14 Estim Creat Clear Calc 79.3 Estimated GFR > 60 Random Glucose 91 Calcium 9.2 Magnesium 1.9 Total Bilirubin 0.8 Direct Bilirubin 0.4 AST 62 H ALT 45 H Alkaline Phosphatase 98 Total Protein 6.9 Albumin 3.7 Assessment and Plan (1) RAUL (acute kidney injury): Status: Acute Plan d4, 75yoM with sarcoidosis, HTN, HLD, AMRIK on nocturnal CPAP, BPH, recurrent UTI, chronic back pain presenting with nausea/vomiting and fever, found to be septic and hypoxic due to UTI/bacteremia sepsis and acute hypoxic respiratory failure due to UTI/Morganella bacteremia - levofloxacin 07/16-, repeat BCx, ID consultation - weaned off O2 urinary retention - Don placed; continue Flomax + Proscar; follow up with Urology as outpt hypoK - replete, recheck level tomorrow RAUL due to septic ATN: resolved after IV hydration HLD: fenofibrate HTN: amlodipine AMRIK: CPAP at night VTE ppx: enoxaparin dispo: STR vs home with VNA In my clinical judgment, the patient requires continued inpatient hospitalization for the following reasons: ID consultation, bacteremia Total time managing care of this patient today: 45 minutes. Quality Stroke Does the patient have a stroke diagnosis?: No VTE Prior VTE?: No VTE Risk Level:: Medical - moderate - high VTE Device Contraindication: Treatment Not Indicated VTE Drug Contraindication: N/A - Med Ordered
--- NOTE | 2025-07-17 19:37 | P.EN_ITS ---
Event Note Date of Service: 07/17/25 Event Note: Report from nursing, pt has possible conjunctivitis. Pt was transferred to 3rd floor today from the 4th floor. Pt states the eye is irritated, tearing and producing mildly purulent drainage. Pt believes his symptoms started yesterday. Pt denies any eye pain or loss of visual acuity. Pt denies any SEGURA, fever or chills. Pt denies any significant hx involving the left eye including iritis, uveitis, or retinal issues. Pt denies any nasal congestion. There is no per iorbital edema. The Left sclera is red and the conjunctiva is red and inflamed. DX: L eye conjunctivitis R eye currently clear Pt has allergy to erythromycin, ordered Neomycin/Polymixin/DX Left eye QID scheduled for next 3 days. Pt educated to avoid making direct contact with eye and the infection could spread to the R eye. Pt instructed to wash hands often and use kleenex to dab at affected eye and toss kleenex away, do not reuse. Time Spent With Patient Time: Total time managing care of this patient today ____ minutes.
[2025-07-17] MEDS: NeoMY/Polymyx/Dexameth Oph Oin 3.5 GM TUBE 0.5 INCH EYE-LEFT (21:30)
--- NOTE | 2025-07-17 22:21 | P.CNID_ITS ---
History of Present Illness Data of Consult Service Date: 07/17/25 Requesting physician: Yareli Paris Primary Care Provider: Jackeline Garcia MD HPI Reason for consult: hematuria,morganella,sibonii species He presents with nausea,vomiting and diarrhea for three days. He has frequent UTIs and has straight cath at time. He has morganella speies blood z1, Thickness found on bladder on CT Review of Systems 2 Review of Systems: Yes all other systems are reviewed and are negative PMFSH Past Medical History Medical History Cough AMRIK on CPAP Sarcoidosis Benign prostatic hyperplasia with lower urinary tract symptoms Sarcoidosis AMRIK (obstructive sleep apnea) Hyperlipidemia Obesity GERD (gastroesophageal reflux disease) Lumbago Impaired fasting glucose BPH (benign prostatic hyperplasia) HTN (hypertension) Family History Family History Father Alcoholism Substance use disorder Mother CHF (congestive heart failure) Brother No problems noted. Sister No problems noted. Sister No problems noted. Sister No problems noted. Sister No problems noted. Family history: reviewed and not pertinent Surgical History Surgical History History of bronchoscopy Social History Social History Household Members: Spouse and Children Housing: House Housing Other:: mobile home Are you a primary child care worker to a significant other at home: No Do you presently have visiting nurse or other home services: No Patient Tobacco Use Status: Never used Tobacco e-Cigarette/Vaping Use: Never Used service: No Current occupational status: retired Cognitive needs: No Hearing needs: No Vision needs: Yes Meds Allergies Allergy/AdvReac Type Severity Reaction Status Date / Time Sulfa (Sulfonamide Allergy Unknown unknown Verified 07/13/25 20:20 Antibiotics) (SULFA reaction-childhood (SULFONAMIDE ANTIBIOTICS)) allergy Active Medications: Current Medications Acetaminophen (Acetaminophen 325 Mg Tablet) 975 mg PO Q6H PRN On Hold: 07/14/25 02:04 PRN Reason: Pain, Mild 1-3,fever,headache Amlodipine Besylate (Amlodipine Besylate 10 Mg Tablet) 10 mg PO DAILY [facility]; Protocol Last Admin: 07/17/25 10:08 Dose: 10 mg Aspirin (Aspirin Enteric Coated 81 Mg Tablet.) 81 mg PO DAILY [facility] Last Admin: 07/17/25 10:09 Dose: 81 mg Calcium Carbonate (Calcium Carbonate 750 Mg Tab.Chew) 750 mg PO Q4H PRN PRN Reason: Heartburn Enoxaparin Sodium (Enoxaparin Sodium 40 Mg/0.4 Ml Syringe) 40 mg SUBCUT Q24H [facility] Last Admin: 07/17/25 17:48 Dose: 40 mg Fenofibrate (Fenofibrate 160 Mg Tablet) 160 mg PO DAILY [facility] Last Admin: 07/17/25 10:08 Dose: 160 mg Finasteride (Finasteride 5 Mg Tablet) 5 mg PO DAILY [facility] Last Admin: 07/17/25 10:09 Dose: 5 mg Hydromorphone HCl (Hydromorphone Hcl 0.5 Mg/0.5 Ml Syringe) 0.5 mg IVPUSH Q4H PRN; Protocol PRN Reason: Pain, Severe (Pain Scale 7-10) Last Admin: 07/16/25 14:14 Dose: 0.5 mg Levofloxacin (Levofloxacin 750 Mg Tablet) 750 mg PO Q24H [facility] Last Admin: 07/17/25 10:08 Dose: 750 mg Lidocaine (Lidocaine 4 % Patch Adh..Patch) 1 patch TRANSDERMA DAILY [facility]; Protocol Last Admin: 07/17/25 10:09 Dose: 1 patch Magnesium Hydroxide (Milk Of Magnesia 30 Ml Oral.Susp) 30 ml PO DAILY PRN PRN Reason: Constipation Melatonin (Melatonin 3 Mg Tablet) 6 mg PO BEDTIME PRN PRN Reason: Insomnia Multivitamins/Vitamin C (Multivitamin Tablet) 1 tab PO DAILY [facility] Last Admin: 07/17/25 10:09 Dose: 1 tab Neomycin/Polymyxin/Dexamethasone (Neomy/Polymyx/Dexameth Oph Oin 3.5 Gm Tube) 0.5 inch EYE-LEFT QID [facility] Last Admin: 07/17/25 21:30 Dose: 0.5 inch Omeprazole (Omeprazole 40 Mg Capsule.) 40 mg PO BID@0630,1630 [facility] Last Admin: 07/17/25 17:49 Dose: Not Given Ondansetron HCl (Ondansetron Hcl 4 Mg/2 Ml Vial) 4 mg IVPUSH Q8H PRN PRN Reason: Nausea and Vomiting Oxycodone HCl (Oxycodone Hcl Immed Release 5 Mg Tablet) 5 mg PO Q6H PRN PRN Reason: Pain, Moderate(Pain Scale 4-6) Last Admin: 07/16/25 17:17 Dose: 5 mg Sodium Chloride (0.9 % Sodium Chloride Flush 3 Ml Syringe) 3 ml IVFLUSH QSHIFT [facility] Last Admin: 07/17/25 21:31 Dose: 3 ml Tamsulosin HCl (Tamsulosin Hcl 0.4 Mg Capsule) 0.4 mg PO DAILY [facility] Last Admin: 07/17/25 10:08 Dose: 0.4 mg Home Medications ?Medication ?Instructions ?Recorded ?Confirmed ?Last Taken ?Type aspirin 81 mg tablet,delayed 81 mg PO DAILY 07/17/20 1 09/14/24 Unknown History release multivitamin 1 tab PO DAILY 07/05/2501/01 Unknown History finasteride 5 mg tablet 5 mg PO DAILY 07/13/2507/14 Unknown History albuterol sulfate 90 mcg/actuation 2 puff PO QID PRN S hortness Of 07/14/25 07/14/25 Unknown History aerosol inhaler Breath Or Wheezing omeprazole 40 mg capsule,delayed 40 mg PO BID@0630,163 0 07/14/25 07/14/25 Unknown History release Physical Exam 2 Vital Signs: Vital Signs: Last Vital Signs Temp 97.9 F 07/17/25 18:45 Pulse 90 07/17/25 18:45 Resp 18 07/17/25 18:45 BP 125/70 07/17/25 18:45 Pulse Ox 92 07/17/25 18:45 O2 Del Method Room Air 07/17/25 18:45 O2 Flow Rate 4 07/14/25 00:00 BMI result Body Mass Index 30.8 Const: General: cooperative HEENT: Head: Yes normal to inspection Face and sinus: Yes normal facial exam Mouth: Normal oral and palatal mucosa present Teeth and gingiva: d entition normal Eyes: General: appearance normal, both eyes and all related structures P upils: Equal, round and reactive pupils present Resp: Effort & Inspection: normal respiratory effort Cardio: Rate: regular rate Rhythm: regular rhythm GI: Palpation (GI): Soft to palpation and nontender : General: Yes no CVA tenderness Back/Spine/Pelvis: Back: no CVA tenderness Skin: General skin exam: no rashes or lesions noted Neuro: General: moves all extremities Cranial nerves: Yes Equal, round and reactive pupils present Extrem: General: Yes normal to inspection Psych: Appearance: grossly normal Results Labs 07/17/25 06:26 07/17/25 06:26 Labs: Short CBC 07/17/25 Range/Units 06:26 WBC 9.6 (4.8-10.8) X10*3/uL Hgb 15.1 (14.0-18.0) g/dl Hct 44.4 (42.0-52.0) % Plt Count 156 L (160-400) X10*3/uL BMP 07/17/25 06:26 Sodium 140 Potassium 3.2 L Chloride 104 Carbon Dioxide 25 BUN 15 Creatinine 0.97 Calcium 9.2 Liver Function 07/17/25 Range/Units 06:26 Total Bilirubin 0.8 (0.0-1.0) mg/dL Direct Bilirubin 0.4 (0.0-0.5) mg/dL AST 62 H (5-37) U/L ALT 45 H (0-40) U/L Alkaline Phosphatase 98 (39-117) U/L Albumin 3.7 (3.5-5.0) g/dL Microbiology Microbiology Results: Microbiology 07/14/25 Unknown Urine Catheterized - Straight Catheter Urine Culture - Final No growth. 07/13/25 20:26 Blood - Venous Blood Culture - Final Morg morganii ssp sibonii 07/13/25 20:27 Blood - Venous Blood Culture - Final Morg morganii ssp sibonii Assessment and Plan (1) Incomplete bladder emptying: Status: Acute (2) Benign prostatic hyperplasia with lower urinary tract symptoms: Status: Acute Plan po Levaquin 21 days, follow Urology
--- NOTE | 2025-07-18 00:23 | PM.EVENT ---
Event Note Date of Service: 07/18/25 Event Note: 0020 Nursing reported BP 180/88, no chest pain, pain,fever or tachycardia. Pt's BP has been relatively elevated since admission. Pt takes amlodipine 10 mgs in AM. Hydralazine IV 10 mg Q6prn for systolic > 160 ordered. Pt may require second oral agent to help control BP. Time Spent With Patient Time: Total time managing care of this patient today ____ minutes.
[2025-07-18 01:31] VITALS: BP 172/81
[2025-07-18 03:50] VITALS: BP 180/90; PULSE 69; RESP 19; TEMP 36.3; O2SAT 96
[2025-07-18 06:50] LABS: Anion Gap 14 (12-20); Blood Urea Nitrogen 16 mg/dL (9-16); Calcium 9.4 mg/dL (8.4-10.2); Carbon Dioxide 24 mmol/L (22-29); Chloride 106 mmol/L (96-108); Creatinine Clr Calc Pharmacy 86.5; Estimated Glomerular Filt Rate > 60; Magnesium 1.9 mg/dL (1.6-2.6); Potassium 3.0 mmol/L (3.3-5.1); Sodium 141 mmol/L (135-145)
[2025-07-18 07:53] VITALS: BP 141/84; PULSE 84; RESP 16; TEMP 36.6; O2SAT 94
[2025-07-18] MEDS: Potassium Chloride ER 20 MEQ TAB.ER.PRT 40 MEQ PO (09:22)
[2025-07-18] MEDS: NeoMY/Polymyx/Dexameth Oph Oin 3.5 GM TUBE 0.5 INCH EYE-LEFT ×4 (09:22→19:56)
[2025-07-18 09:24] VITALS: BP 157/92
[2025-07-18] MEDS: Lidocaine 4 % Patch ADH..PATCH 1 PATCH TRANSDERMA (09:24)
[2025-07-18] MEDS: Aspirin Enteric Coated 81 MG TABLET.DR PO (09:24)
--- NOTE | 2025-07-18 11:44 | HO.PM.IMPN ---
Subjective Subjective Date of Service: 07/18/25 Interval History: frustrated by weakness no fever Review of Systems Review of Systems: Yes all other systems are reviewed and are negative Physical Exam Vital Signs: Vital Signs: Last Vital Signs Temp 97.8 F 07/18/25 07:53 Pulse 84 07/18/25 07:53 Resp 16 07/18/25 07:53 BP 157/92 H 07/18/25 09:24 Pulse Ox 94 07/18/25 07:53 O2 Del Method Room Air 07/18/25 07:53 O2 Flow Rate 4 07/14/25 00:00 BMI result Body Mass Index 30.8 Gen: weak-appearing HEENT: sclera anicteric, moist mucus membranes Neck: supple Lungs: clear to auscultation bilaterally Heart: regular rate and rhythm, no murmurs Abd: soft, non-tender, non-distended : Don draining clear urine Ext: no edema Skin: warm/well-perfused Neuro: alert and oriented x3, no focal findings Psych: appropriate affect Objective Data Active Medications Acetaminophen (Acetaminophen 325 Mg Tablet) 975 mg PO Q6H PRN On Hold: 07/14/25 02:04 PRN Reason: Pain, Mild 1-3,fever,headache Amlodipine Besylate (Amlodipine Besylate 10 Mg Tablet) 10 mg PO DAILY [facility]; Protocol Last Admin: 07/18/25 09:24 Dose: 10 mg Documented By: PRADIP Aspirin (Aspirin Enteric Coated 81 Mg Tablet.) 81 mg PO DAILY [facility] Last Admin: 07/18/25 09:24 Dose: 81 mg Documented By: PRADIP Calcium Carbonate (Calcium Carbonate 750 Mg Tab.Chew) 750 mg PO Q4H PRN PRN Reason: Heartburn Enoxaparin Sodium (Enoxaparin Sodium 40 Mg/0.4 Ml Syringe) 40 mg SUBCUT Q24H [facility] Last Admin: 07/17/25 17:48 Dose: 40 mg Documented By: ISAAK Fenofibrate (Fenofibrate 160 Mg Tablet) 160 mg PO DAILY [facility] Last Admin: 07/18/25 09:22 Dose: 160 mg Documented By: PRADIP Finasteride (Finasteride 5 Mg Tablet) 5 mg PO DAILY [facility] Last Admin: 07/18/25 09:22 Dose: 5 mg Documented By: PRADIP Hydralazine HCl (Hydralazine Hcl 20 Mg/Ml Vial) 10 mg IVPUSH Q6H PRN; Protocol PRN Reason: SBP > 160 Last Admin: 07/18/25 00:31 Dose: 10 mg Documented By: PAM Hydromorphone HCl (Hydromorphone Hcl 0.5 Mg/0.5 Ml Syringe) 0.5 mg IVPUSH Q4H PRN; Protocol PRN Reason: Pain, Severe (Pain Scale 7-10) Last Admin: 07/16/25 14:14 Dose: 0.5 mg Documented By: RHONDA Levofloxacin (Levofloxacin 750 Mg Tablet) 750 mg PO Q24H [facility] Last Admin: 07/18/25 09:23 Dose: 750 mg Documented By: PRADIP Lidocaine (Lidocaine 4 % Patch Adh..Patch) 1 patch TRANSDERMA DAILY [facility]; Protocol Last Admin: 07/18/25 09:24 Dose: 1 patch Documented By: PRADIP Magnesium Hydroxide (Milk Of Magnesia 30 Ml Oral.Susp) 30 ml PO DAILY PRN PRN Reason: Constipation Melatonin (Melatonin 3 Mg Tablet) 6 mg PO BEDTIME PRN PRN Reason: Insomnia Multivitamins/Vitamin C (Multivitamin Tablet) 1 tab PO DAILY [facility] Last Admin: 07/18/25 09:23 Dose: 1 tab Documented By: PRADIP Neomycin/Polymyxin/Dexamethasone (Neomy/Polymyx/Dexameth Oph Oin 3.5 Gm Tube) 0.5 inch EYE-LEFT QID [facility] Last Admin: 07/18/25 09:22 Dose: 0.5 inch Documented By: PRADIP Omeprazole (Omeprazole 40 Mg Capsule.) 40 mg PO BID@0630,1630 [facility] Last Admin: 07/18/25 06:30 Dose: 40 mg Documented By: PAM Ondansetron HCl (Ondansetron Hcl 4 Mg/2 Ml Vial) 4 mg IVPUSH Q8H PRN PRN Reason: Nausea and Vomiting Oxycodone HCl (Oxycodone Hcl Immed Release 5 Mg Tablet) 5 mg PO Q6H PRN PRN Reason: Pain, Moderate(Pain Scale 4-6) Last Admin: 07/16/25 17:17 Dose: 5 mg Documented By: RHONDA Sodium Chloride (0.9 % Sodium Chloride Flush 3 Ml Syringe) 3 ml IVFLUSH QSHIFT [facility] Last Admin: 07/18/25 09:25 Dose: Not Given Documented By: PRADIP Non-Admin Reason: Previously Administered Tamsulosin HCl (Tamsulosin Hcl 0.4 Mg Capsule) 0.4 mg PO DAILY [facility] Last Admin: 07/18/25 09:24 Dose: 0.4 mg Documented By: PRADIP Labs 07/17/25 06:26 07/18/25 06:03 Labs: Laboratory Results - last 24 hr 07/18/25 06:03 Hold Purple Top SEE NOTE Anion Gap 14 Estim Creat Clear Calc 86.5 Estimated GFR > 60 Random Glucose 106 Calcium 9.4 Magnesium 1.9 Assessment and Plan (1) RAUL (acute kidney injury): Status: Acute Plan d5, 75yoM with sarcoidosis, HTN, HLD, AMRIK on nocturnal CPAP, BPH, recurrent UTI, chronic back pain presenting with nausea/vomiting and fever, found to be septic and hypoxic due to UTI/bacteremia sepsis and acute hypoxic respiratory failure due to UTI/Morganella bacteremia - levofloxacin 07/16-, repeat BCx from 07/17 pending; ID consulted and recommends 21d of levofloxacin - weaned off O2 urinary retention - Don placed; continue Flomax + Proscar; follow up with Urology as outpt hypoK - replete, recheck level tomorrow RAUL due to septic ATN: resolved after IV hydration HLD: fenofibrate HTN: amlodipine AMRIK: CPAP at night VTE ppx: enoxaparin dispo: STR In my clinical judgment, the patient requires continued inpatient hospitalization for the following reasons: bacteremia, placement in STR Total time managing care of this patient today: 35 minutes. Quality Stroke Does the patient have a stroke diagnosis?: No VTE Prior VTE?: No VTE Risk Level:: Medical - moderate - high VTE Device Contraindication: Treatment Not Indicated VTE Drug Contraindication: N/A - Med Ordered
[2025-07-18 15:48] VITALS: BP 141/98; PULSE 87; RESP 15; TEMP 36.9; O2SAT 93
[2025-07-18] MEDS: 0.9 % Sodium Chloride Flush 3 ML SYRINGE IVFLUSH ×2 (16:30→19:57)
[2025-07-18 20:00] VITALS: BP 141/90; PULSE 96; RESP 16; TEMP 36; O2SAT 94
[2025-07-19 04:00] VITALS: BP 145/78; PULSE 90; RESP 18; TEMP 36; O2SAT 94
[2025-07-19 07:20] LABS: Anion Gap 13 (12-20); Blood Urea Nitrogen 19 mg/dL (9-16); Calcium 9.3 mg/dL (8.4-10.2); Carbon Dioxide 24 mmol/L (22-29); Chloride 107 mmol/L (96-108); Creatinine Clr Calc Pharmacy 81.9; Estimated Glomerular Filt Rate > 60; Potassium 3.2 mmol/L (3.3-5.1); Sodium 141 mmol/L (135-145)
[2025-07-19 08:00] VITALS: BP 165/81; PULSE 76; RESP 18; TEMP 36.2; O2SAT 93
[2025-07-19 08:29] VITALS: PULSE 76; RESP 18; O2SAT 93
[2025-07-19 08:43] VITALS: BP 165/81
[2025-07-19] MEDS: 0.9 % Sodium Chloride Flush 3 ML SYRINGE IVFLUSH (08:43)
[2025-07-19] MEDS: Aspirin Enteric Coated 81 MG TABLET.DR PO (08:44)
[2025-07-19] MEDS: Lidocaine 4 % Patch ADH..PATCH 1 PATCH TRANSDERMA (08:45)
[2025-07-19] MEDS: NeoMY/Polymyx/Dexameth Oph Oin 3.5 GM TUBE 0.5 INCH EYE-LEFT ×3 (08:47→17:22)
--- NOTE | 2025-07-19 10:35 | P.DS_ITS ---
DS: Providers Provider Date of Service: 07/19/25 Date of admission: 07/14/25 00:03 Date of discharge: 07/19/25 Primary care physician: Jackeline Garcia MD Consults: 07/17/25 09:19 Consult to Infectious Diseases Routine Consulting Provider: [facility] Reason for consultation: morganella bacteremia DS: Diagnosis Discharge Diagnosis (1) RAUL (acute kidney injury): Status: Acute (2) Incomplete bladder emptying: Status: Acute (3) Urinary retention: Status: Acute (4) UTI (urinary tract infection): Status: Acute (5) Sepsis: Status: Acute (6) Acute hypoxic respiratory failure: Status: Acute (7) Bacterial infection due to Morganella morganii: Status: Acute (8) Bacteremia: Status: Acute (9) ATN (acute tubular necrosis): Status: Acute DS: Summary Hospital Course Hospital Course: From the history and physical by the admitting hospitalist, DOTTIE Bryant, 07/14/25: 'Patient is a 75-year-old male with a past medical history significant for sarcoidosis, hypertension, hyperlipidemia, AMRIK on CPAP, BPH, frequent UTIs and chronic back pain, who presented to the ED due to nausea, vomiting, diarrhea and dizziness for the past 3 days. Pt is unable to provide a history at this time as he was having a flare of his chronic back pain and received diazepam and has been somnolent since. The following history is from ED provider. Patient reported that he has been around multiple family members with similar symptoms and his is currently admitted here for pneumonia. He denied any abdominal pain, cough or fever. He denied any urinary symptoms including frequency, urgency or dysuria. It was noted that his urine is very malodorous, urine sample with spilled unfortunately, therefore waiting for another urine sample at this time. The pt's twin sister was beside and reports that the pt went for a urologic procedure today that was not successful. She does not know what kind of procedure and states it was done at [facility]. She states it was for his bladder and prostate but they were not successful and stopped . EMS noted that pt was hypoxic in the upper 80s when they arrived with improvement on 2L NC. pt now on CPAP that he is supposed to use at bedtime but admittedly does not use.' 75yoM with sarcoidosis, HTN, HLD, AMRIK on nocturnal CPAP, BPH, recurrent UTI, chronic back pain presenting with nausea/vomiting and fever, found to be septic and hypoxic due to UTI/bacteremia and admitted to the hospitalist service. Hospital course by problem: sepsis and acute hypoxic respiratory failure due to UTI/Morganella bacteremia - Treated with levofloxacin beginning 07/16, repeat BCx from 07/17 negative; ID consulted and recommends 21d of levofloxacin, so end date of 08/07/25 - weaned off O2 urinary retention - Don placed; continue Flomax + Proscar; follow up with Urology as outpt hypoK - placed on PO maintenance repletion RAUL due to septic ATN - resolved after IV hydration He was discharged to ____ SNF for short-term rehabilitation. Time Attestation Discharge Coordination Time (in mins): 40 Quality: Safe Use of Opioids Does Pt have an Active Cancer Diagnosis on the Problem List?: No Quality: Stroke Does the patient have a stroke diagnosis?: No Physical Exam Vital Signs: Vital Signs: Last Vital Signs Temp 97.1 F 07/19/25 08:00 Pulse 76 07/19/25 08:00 Resp 18 07/19/25 08:29 BP 165/81 H 07/19/25 08:43 Pulse Ox 93 07/19/25 08:00 O2 Del Method Room Air 07/19/25 08:00 O2 Flow Rate 4 07/14/25 00:00 BMI result Body Mass Index 30.8 Gen: weak-appearing HEENT: sclera anicteric, moist mucus membranes Neck: supple Lungs: clear to auscultation bilaterally Heart: regular rate and rhythm, no murmurs Abd: soft, non-tender, non-distended : Don draining clear urine Ext: no edema Skin: warm/well-perfused Neuro: alert and oriented x3, no focal findings Psych: appropriate affect DS: Data Data Completed and Pending Completed studies during hospitalization [Text1]: Laboratory Results WBC 9.6 X10*3/uL (4.8-10.8) 07/17/25 06:26 RBC 5.08 X10*6/uL (4.60-5.80) 07/17/25 06:26 Hgb 15.1 g/dl (14.0-18.0) 07/17/25 06:26 Hct 44.4 % (42.0-52.0) 07/17/25 06:26 MCV 87.4 fL (80.0-98.0) 07/17/25 06:26 MCH 29.7 pg (27.0-33.0) 07/17/25 06:26 MCHC 34.0 g/dl (31.0-36.0) 07/17/25 06:26 RDW 12.4 % (11.0-16.0) 07/17/25 06:26 Plt Count 156 X10*3/uL (160-400) L 07/17/25 06:26 MPV 11.7 fL (9.4-12.4) 07/17/25 06:26 Immature Gran % (Auto) 1.0 % (0.0-0.4) H 07/16/25 06:53 Neut % (Auto) 78.6 % (45-73) H 07/16/25 06:53 Lymph % (Auto) 10.0 % (20-40) L 07/16/25 06:53 Comal % (Auto) 5.3 % (2-11) 07/16/25 06:53 Eos % (Auto) 4.4 % (0-4) H 07/16/25 06:53 Baso % (Auto) 0.7 % (0-2) 07/16/25 06:53 Lymph # (Auto) 1.3 X10*3/uL (1.2-4.9) 07/16/25 06:53 Comal # (Auto) 0.7 X10*3/uL (0.1-1.2) 07/16/25 06:53 Eos # (Auto) 0.6 X10*3/uL (0.0-0.4) H 07/16/25 06:53 Baso # (Auto) 0.1 X10*3/uL (0.0-0.2) 07/16/25 06:53 Abs Immat Gran (auto) 0.13 X10*3/uL (0.00-0.03) H 07/16/25 06:53 Absolute Neuts (auto) 10.5 x10*3/uL (2.0-8.3) H 07/16/25 06:53 Absolute Nucleated RBC 0.000 X10*3/uL (0.0-0.012) 07/17/25 06:26 Nucleated RBC % (auto) 0.0 /100WBC (0.0-0.2) 07/17/25 06:26 Neutrophils % (Manual) 59 % (45-73) 07/14/25 03:56 Band Neutrophils % 34 % (3-5) H 07/14/25 03:56 Lymphocytes % (Manual) 1 % (20-40) L 07/14/25 03:56 Monocytes % (Manual) 4 % (2-11) 07/14/25 03:56 Metamyelocytes % 2 % 07/14/25 03:56 Abs Neuts (Manual) 27.0 X10*3/uL (2.0-8.3) H 07/14/25 03:56 Lymphocytes # (Manual) 0.3 X10*3/uL (1.2-4.9) L 07/14/25 03:56 Monocytes # (Manual) 1.2 X10*3/uL (0.1-1.2) 07/14/25 03:56 Metamyelocytes # 0.6 X10*3/uL 07/14/25 03:56 Toxic Vacuolation PRESENT 07/14/25 03:56 Platelet Estimate NORMAL (NORMAL) 07/14/25 03:56 Plt Morphology Comment NORMAL 07/14/25 03:56 RBC Morphology NORMAL 07/14/25 03:56 Smear Tech's Comments VERIFIED 07/13/25 20:27 Hold Purple Top SEE NOTE 07/19/25 05:48 Sodium 141 mmol/L (135-145) 07/19/25 05:48 Potassium 3.2 mmol/L (3.3-5.1) L 07/19/25 05:48 Chloride 107 mmol/L (96-108) 07/19/25 05:48 Carbon Dioxide 24 mmol/L (22-29) 07/19/25 05:48 Anion Gap 13 (12-20) 07/19/25 05:48 BUN 19 mg/dL (9-16) H 07/19/25 05:48 Creatinine 0.94 mg/dL (0.5-1.4) 07/19/25 05:48 Estim Creat Clear Calc 81.9 07/19/25 05:48 Estimated GFR > 60 07/19/25 05:48 Random Glucose 98 mg/dL (60-115) 07/19/25 05:48 Lactic Acid 4.4 mmol/L (0.5-2.0) H* 07/13/25 20:27 Lactic Acid F/U @ 2Hr 1.4 mmol/L (0.5-2.0) 07/13/25 22:55 Calcium 9.3 mg/dL (8.4-10.2) 07/19/25 05:48 Magnesium 1.9 mg/dL (1.6-2.6) 07/18/25 06:03 Total Bilirubin 0.8 mg/dL (0.0-1.0) 07/17/25 06:26 Direct Bilirubin 0.4 mg/dL (0.0-0.5) 07/17/25 06:26 AST 62 U/L (5-37) H 07/17/25 06:26 ALT 45 U/L (0-40) H 07/17/25 06:26 Alkaline Phosphatase 98 U/L (39-117) 07/17/25 06:26 Total Protein 6.9 g/dL (6.5-8.0) 07/17/25 06:26 Albumin 3.7 g/dL (3.5-5.0) 07/17/25 06:26 Urine Color Yellow 07/14/25 11:05 Urine Appearance Cloudy 07/14/25 11:05 Urine pH 7.5 (5.0-9.0) 07/14/25 11:05 Ur Specific Whitt 1.010 (1.005-1.025) 07/14/25 11:05 Urine Protein 30 (1+) mg/dL (Neg-Trace) H 07/14/25 11:05 Urine Glucose (UA) Negative mg/dL (Negative) 07/14/25 11:05 Urine Ketones Negative mg/dL (Negative) 07/14/25 11:05 Urine Blood Moderate (2+) (Negative) H 07/14/25 11:05 Urine Nitrite Positive (Negative) H 07/14/25 11:05 Ur Leukocyte Esterase Large (3+) (Negative) H 07/14/25 11:05 Urine RBC 3-5 /HPF (0-2) H 07/14/25 11:05 Urine WBC >50 /HPF (0-5) H 07/14/25 11:05 Ur Squamous Epith Cells 0-2 /HPF (0-2) 07/14/25 11:05 Urine Bacteria None Seen (None Seen) 07/14/25 11:05 Hyaline Casts 0-2 /LPF (0-2) 07/14/25 11:05 Respiratory Panel Regalado See Note 07/14/25 01:01 Adenovirus (Rapid PCR) Not Detected (Not Detect.) 07/14/25 01:01 B.pert (TEM-PCR) Not Detected (Not Detect.) 07/14/25 01:01 B.parapertussis DNA PCR Not Detected (Not Detect.) 07/14/25 01:01 C. pneumoniae DNA (PCR) Not Detected (Not Detect.) 07/14/25 01:01 Coronavirus OC43 (PCR) Not Detected (Not Detect.) 07/14/25 01:01 Coronavirus HKU1 (PCR) Not Detected (Not Detect.) 07/14/25 01:01 Coronavirus 229E (PCR) Not Detected (Not Detect.) 07/14/25 01:01 COVID-19 (ACACIA) Negative (Negative) 07/13/25 20:27 COVID-19 Clin Com See Note 07/13/25 20:27 Coronavirus NL63 (PCR) Not Detected (Not Detect.) 07/14/25 01:01 Human Metapneumovir PCR Not Detected (Not Detect.) 07/14/25 01:01 Influenza Type A (COLTON) Negative (Negative) 07/13/25 20:27 Influenza A (RT-PCR) Not Detected (Not Detect.) 07/14/25 01:01 Influenza A (H1) PCR Not Detected (Not Detect.) 07/14/25 01:01 Influ A (H1/09) PCR Not Detected (Not Detect.) 07/14/25 01:01 Influenza A (H3) PCR Not Detected (Not Detect.) 07/14/25 01:01 Influenza Type B (COLTON) Negative (Negative) 07/13/25 20: Influenza B (RT-PCR) Not Detected (Not Detect.) 07/14/25 01:01 Influenza A & B Note See Note 07/13/25 20:27 M. pneumoniae (PCR) Not Detected (Not Detect.) 07/14/25 01:01 Parainfluenza 1 (PCR) Not Detected (Not Detect.) 07/14/25 01:01 Parainfluenza 2 (PCR) Not Detected (Not Detect.) 07/14/25 01:01 Parainfluenza 3 (PCR) Not Detected (Not Detect.) 07/14/25 01:01 Parainfluenza 4 (PCR) Not Detected (Not Detect.) 07/14/25 01:01 RSV (PCR) Not Detected (Not Detect.) 07/14/25 01:01 Entero/Rhino (PCR) Not Detected (Not Detect.) 07/14/25 01:01 SARS-CoV-2 RNA (RT-PCR) Not Detected (Not Detect.) 07/14/25 01:01 Discharge Plan Discharge Anticipated Discharge Date/Time: 07/19/25 13:56 Patient Disposition: [facility] Discharge Diagnosis: sepsis due to Morganella bacteremia, urinary infection, urinary retention, hypokalemia Referrals: [facility] [Other] - 1 Week Lorenzo Bazan MD [Physician, Urology] - 1 Week Jackeline Garcia MD [Primary Care Provider, Internal Medicine] - 1 Week Discharge Medications: New lidocaine [Lidocaine Pain Relief] 4 % Adhesive Patch,Medicated 1 patch transdermal DAILY Qty: 30 0RF Protocol: Apply to: Apply to: left shoulder levofloxacin 750 mg Tablet 750 mg PO Q24H Qty: 18 0RF potassium chloride 20 mEq Tablet,Er Particles/Crystals 20 meq PO DAILY Qty: 30 0RF Continued amlodipine 10 mg tablet 10 mg PO DAILY Qty: 90 3RF triamterene-hydrochlorothiazid 37.5-25 mg tablet 1 tab PO DAILY Qty: 90 3RF fenofibrate 160 mg tablet 160 mg PO DAILY Qty: 90 3RF omeprazole 40 mg capsule,delayed release(DR/EC) 40 mg PO BID@0630,1630 albuterol sulfate 90 mcg/actuation HFA aerosol inhaler 2 puff PO QID PRN (Reason: Shortness Of Breath Or Wheezing) multivitamin Tablet 1 tab PO DAILY aspirin 81 mg tablet,delayed release (DR/EC) 81 mg PO DAILY alfuzosin 10 mg tablet extended release 24 hr 10 mg PO DAILY Qty: 90 3RF finasteride 5 mg tablet 5 mg PO DAILY Discharge Orders: Discharge Order (Routine); Ordered 07/19/25 Ordered By: Yareli Paris Diet: Advance to usual diet Activity on Discharge: As tolerated Stand Alone Forms: Patient Portal Discharge page Print Language: Turkish Care Plan Goals: recovery from infection Health Concerns: sepsis due to Morganella bacteremia, urinary infection, urinary retention, hypokalemia Plan of Treatment: levofloxacin 750 mg daily; end date 08/07/25 follow up with [facility] in 1-2 weeks take potassium chloride 20 mEq daily Please follow up with your primary care doctor within 1 week of discharge from rehabilitation. Return to the hospital if you experience recurrent or worsening symptoms. Assessment: See Discharge Summary.
--- NOTE | 2025-07-19 10:42 | HO.PM.IMPN ---
Subjective Subjective Date of Service: 07/19/25 Interval History: no new events, awaiting STR placement Review of Systems Review of Systems: Yes all other systems are reviewed and are negative Physical Exam Vital Signs: Vital Signs: Last Vital Signs Temp 97.1 F 07/19/25 08:00 Pulse 76 07/19/25 08:00 Resp 18 07/19/25 08:29 BP 165/81 H 07/19/25 08:43 Pulse Ox 93 07/19/25 08:00 O2 Del Method Room Air 07/19/25 08:00 O2 Flow Rate 4 07/14/25 00:00 BMI result Body Mass Index 30.8 Gen: weak-appearing HEENT: sclera anicteric, moist mucus membranes Neck: supple Lungs: clear to auscultation bilaterally Heart: regular rate and rhythm, no murmurs Abd: soft, non-tender, non-distended : Don draining clear urine Ext: no edema Skin: warm/well-perfused Neuro: alert and oriented x3, no focal findings Psych: appropriate affect Objective Data Active Medications Acetaminophen (Acetaminophen 325 Mg Tablet) 975 mg PO Q6H PRN On Hold: 07/14/25 02:04 PRN Reason: Pain, Mild 1-3,fever,headache Amlodipine Besylate (Amlodipine Besylate 10 Mg Tablet) 10 mg PO DAILY [facility]; Protocol Last Admin: 07/19/25 08:43 Dose: 10 mg Documented By: CAMILA Aspirin (Aspirin Enteric Coated 81 Mg Tablet.) 81 mg PO DAILY [facility] Last Admin: 07/19/25 08:44 Dose: 81 mg Documented By: CAMILA Calcium Carbonate (Calcium Carbonate 750 Mg Tab.Chew) 750 mg PO Q4H PRN PRN Reason: Heartburn Enoxaparin Sodium (Enoxaparin Sodium 40 Mg/0.4 Ml Syringe) 40 mg SUBCUT Q24H [facility] Last Admin: 07/18/25 16:27 Dose: 40 mg Documented By: PRADIP Fenofibrate (Fenofibrate 160 Mg Tablet) 160 mg PO DAILY [facility] Last Admin: 07/19/25 08:44 Dose: 160 mg Documented By: CAMILA Finasteride (Finasteride 5 Mg Tablet) 5 mg PO DAILY [facility] Last Admin: 07/19/25 08:44 Dose: 5 mg Documented By: CAMILA Hydralazine HCl (Hydralazine Hcl 20 Mg/Ml Vial) 10 mg IVPUSH Q6H PRN; Protocol PRN Reason: SBP > 160 Last Admin: 07/18/25 00:31 Dose: 10 mg Documented By: PAM Levofloxacin (Levofloxacin 750 Mg Tablet) 750 mg PO Q24H [facility] Last Admin: 07/19/25 08:44 Dose: 750 mg Documented By: CAMILA Lidocaine (Lidocaine 4 % Patch Adh..Patch) 1 patch TRANSDERMA DAILY [facility]; Protocol Last Admin: 07/19/25 08:45 Dose: 1 patch Documented By: CAMILA Magnesium Hydroxide (Milk Of Magnesia 30 Ml Oral.Susp) 30 ml PO DAILY PRN PRN Reason: Constipation Melatonin (Melatonin 3 Mg Tablet) 6 mg PO BEDTIME PRN PRN Reason: Insomnia Multivitamins/Vitamin C (Multivitamin Tablet) 1 tab PO DAILY [facility] Last Admin: 07/19/25 08:44 Dose: 1 tab Documented By: CAMILA Neomycin/Polymyxin/Dexamethasone (Neomy/Polymyx/Dexameth Oph Oin 3.5 Gm Tube) 0.5 inch EYE-LEFT QID [facility] Last Admin: 07/19/25 08:47 Dose: 0.5 inch Documented By: CAMILA Omeprazole (Omeprazole 40 Mg Capsule.) 40 mg PO BID@0630,1630 [facility] Last Admin: 07/19/25 05:36 Dose: 40 mg Documented By: PAM Ondansetron HCl (Ondansetron Hcl 4 Mg/2 Ml Vial) 4 mg IVPUSH Q8H PRN PRN Reason: Nausea and Vomiting Potassium Chloride (Potassium Chloride Er 20 Meq Tab.Er.Prt) 20 meq PO DAILY [facility] Sodium Chloride (0.9 % Sodium Chloride Flush 3 Ml Syringe) 3 ml IVFLUSH QSHIFT [facility] Last Admin: 07/19/25 08:43 Dose: 3 ml Documented By: CAMILA Tamsulosin HCl (Tamsulosin Hcl 0.4 Mg Capsule) 0.4 mg PO DAILY [facility] Last Admin: 07/19/25 08:44 Dose: 0.4 mg Documented By: CAMILA Labs 07/17/25 06:26 07/19/25 05:48 Labs: Laboratory Results - last 24 hr 07/19/25 05:48 Hold Purple Top SEE NOTE Anion Gap 13 Estim Creat Clear Calc 81.9 Estimated GFR > 60 Random Glucose 98 Calcium 9.3 Microbiology Microbiology Results: Microbiology 07/17/25 10:08 Blood Culture - Preliminary Blood - Venous No growth after 24 hours. Assessment and Plan (1) RAUL (acute kidney injury): Status: Acute Plan d6, 75yoM with sarcoidosis, HTN, HLD, AMRIK on nocturnal CPAP, BPH, recurrent UTI, chronic back pain presenting with nausea/vomiting and fever, found to be septic and hypoxic due to UTI/bacteremia sepsis and acute hypoxic respiratory failure due to UTI/Morganella bacteremia - levofloxacin 07/16-, repeat BCx from 07/17 pending; ID consulted and recommends 21d of levofloxacin, end date 08/07/25 - weaned off O2 urinary retention - Don placed; continue Flomax + Proscar; follow up with Urology as outpt hypoK - replete, start PO maintenance RAUL due to septic ATN: resolved after IV hydration HLD: fenofibrate HTN: amlodipine AMRIK: CPAP at night VTE ppx: enoxaparin dispo: STR In my clinical judgment, the patient requires continued inpatient hospitalization for the following reasons: bacteremia, placement in STR Total time managing care of this patient today: 35 minutes. Quality Stroke Does the patient have a stroke diagnosis?: No VTE Prior VTE?: No VTE Risk Level:: Medical - moderate - high VTE Device Contraindication: Treatment Not Indicated VTE Drug Contraindication: N/A - Med Ordered
[2025-07-19] MEDS: Potassium Chloride ER 20 MEQ TAB.ER.PRT PO (11:27)
[2025-07-19 15:35] VITALS: BP 144/75; PULSE 82; RESP 15; TEMP 36.5; O2SAT 93
== END 2025-07-19 17:30 | disposition skilled nursing facility (03) | DRG 871 ==
LOC: HO.ED 23:38 → HO.EDOVER 07-14 00:30 → HO.IMC 07-14 12:32 → HO.S3 07-17 17:17
PROVIDERS: Internal Medicine; Physician Assistant Medical; Admitting Provider Physician Assistant; Emergency Provider Emergency Medicine; PCP Internal Medicine; Visit Provider Family Medicine
DX: A41.9 Sepsis, unspecified organism (principal); J96.01 Acute respiratory failure with hypoxia; N17.0 Acute kidney failure with tubular necrosis; N39.0 Urinary tract infection, site not specified; R65.20 Severe sepsis without septic shock; G47.33 Obstructive sleep apnea (adult) (pediatric); E78.5 Hyperlipidemia, unspecified; I10 Essential (primary) hypertension; G89.29 Other chronic pain; N40.1 Benign prostatic hyperplasia with lower urinary tract symptoms; R33.8 Other retention of urine; D86.9 Sarcoidosis, unspecified; M54.9 Dorsalgia, unspecified; H10.9 Unspecified conjunctivitis; E87.6 Hypokalemia; Z20.822 Contact with and (suspected) exposure to COVID-19; Z87.440 Personal history of urinary (tract) infections; Z79.82 Long term (current) use of aspirin; Z79.899 Other long term (current) drug therapy
CPT/HCPCS: 36415; 71045; 74176; 80048; 80053; 80076; 81001; 82248; 83605; 83735; 85007; 85025; 85027; 87040; 87077; 87086; 87186; 87205; 87502; 87633; 87635; 93005; 94660; 97162; 97530; 99212; 99285; J0131; J0360; J0696; J1171; J1644; J1650; J1885; J2405; J2543; J3360; J3374; J3480; J7120

== ENCOUNTER → 2025-07-13 20:15 | Outpatient (BNV) | payer MEDICARE, SELFPAY | PROVIDERS: Emergency Provider Emergency Medicine; PCP Internal Medicine; Visit Provider Radiology Diagnostic Radiology | DX: R16.0 Hepatomegaly, not elsewhere classified (principal); R50.9 Fever, unspecified | CPT/HCPCS: 71045; 74176 ==

== ENCOUNTER → 2025-07-13 20:18 | Outpatient (BNV) | payer MEDICARE, SELFPAY | PROVIDERS: Admitting Provider Physician Assistant; Emergency Provider Emergency Medicine; PCP Internal Medicine; Visit Provider Internal Medicine | DX: R00.0 Tachycardia, unspecified (principal); I49.1 Atrial premature depolarization | CPT/HCPCS: 93010 ==

== ENCOUNTER → 2025-07-14 00:03 | Outpatient (BNV) | payer MEDICARE, SELFPAY | PROVIDERS: Admitting Provider Physician Assistant; Emergency Provider Emergency Medicine; PCP Internal Medicine; Visit Provider Internal Medicine | DX: J96.01 Acute respiratory failure with hypoxia (principal); A41.9 Sepsis, unspecified organism; R65.20 Severe sepsis without septic shock; N17.9 Acute kidney failure, unspecified | CPT/HCPCS: 99222; 99232; 99233; 99499 ==

== ENCOUNTER → 2025-07-14 00:03 | Outpatient (BNV) | payer MEDICARE, SELFPAY | PROVIDERS: Admitting Provider Physician Assistant; Emergency Provider Emergency Medicine; PCP Internal Medicine; Visit Provider Internal Medicine | DX: R33.9 Retention of urine, unspecified (principal); N40.1 Benign prostatic hyperplasia with lower urinary tract symptoms | CPT/HCPCS: 99222 ==

== ENCOUNTER 2025-07-22 19:54 | Emergency (ER) | payer MEDICARE, SELFPAY ==
[2025-07-22 19:58] VITALS: BP 151/69; BP 154/92; PULSE 86; PULSE 88; RESP 18; TEMP 36.6; O2SAT 94; O2SAT 98; BMI 29.3
--- OUTSIDE RECORDS SUMMARY | 2025-07-22 20:23 | XMS_ITS | Encounter Summary ---
Author Organization [facility] Address [address] [place] [address] Care Team Providers Care Vest Finisher Name Role Phone Physician, Pcp Unknown Primary Care Provider Faith vailable Encounter Details Date Type Department Care Team (Late st Contact Info) Description 06/06/2025 Lab Requisition [facility] - Main Lab [address] [facility] [place] [address] Denisha Blackmon PA [address] [place] [address] Gross hematuria Social History Tobacco Use Types [...] Procedure Name Priority Date/Time Associated Diagnosis Comments NON-GYNECOLOGIC CYTOLOGY Routine 2025 12:00 AM EDT Gross hematuria documented in this encounter Results * Non-gynecologic cytology (2025 12:00 AM EDT) Final Diagnosis Urine, Voided, [id number]: Negative for high grade urothelial carcinoma. Abundant acute inflammatory cells are present. Results of [employer] fluorescence in situ hybridization (FISH) testing: Although FISH was performed, insufficient non-obscured hybridization signals are present for evaluation and interpretation. 06/09/2025 1:19 PM EDT [facility] at 1319 EDT Specimen A Adequacy Satisfactory for evaluation 06/09/2025 1:19 PM EDT [facility] Clinical Information Gross hematuria R31.0 Urine Cytology/FISH (now) 06/09/2025 1:19 PM EDT [facility] Gross Description A. Urine, Voided, [id number]: Received one ThinPrep slide for cytology and one ThinPrep slide for [employer] FISH 06/09/2025 1:19 PM EDT [facility] Disclaimer Unless otherwise specified, all tissue is 10% NB formalin fixed and paraffin embedded. Technical pathology services provided by [facility] at [address] [facility] [address] [place] [address] (CLIA #[id number]/Yulissa Muniz MD, Sales Product Specialist) 06/09/2025 1:19 PM EDT [facility] Urine Urine specimen from urethra / Unknown 2025 06/06/2025 1:38 PM EDT us Den[facility] CYTOLOGY ORDERABLES Final Result [facility] [address] [place] [address], documented in this encounter Visit Diagnoses Diagnosis Gross hematuria documented in this encounter Care Teams Vest Finisher Relationship Specialty Start Date End Date Physician, Pcp Unknown PCP - General 05/18/25 documented as of this encounter
--- OUTSIDE RECORDS SUMMARY | 2025-07-22 20:24 | XMS_ITS | Clinical Summary ---
Author Organization [address] [facility] Address [address] [place] [address] Phone Care Team Providers Care Nail Feeder Name Role Phone Physician, Pcp Unknown Primary Care Provider Faith vailable Encounters Date Type Department Care Team Description 07/22/2025 Lab Requisition [facility] [address] [place] [phone] Tee Gonzalez MD Sepsis, unspecified organism ([facility] V24, [facility] V28); Bacteremia 07/20/2025 Lab Requisition [facility] [address] [place] [phone] Tee Gonzalez MD Sepsis, unspecified organism ([facility] V24, [facility] V28); Bacteremia 06/06/2025 Lab Requisition [facility] [address] [place] [phone] Denisha Blackmon PA Gross hematuria 2025 Lab Requisition [facility] [address] [place] [phone] Denisha Blackmon PA Urinary tract infection, site [...] 2) 2000 Depression Screening 08/10/2024 COVID-19 Vaccine ( - 2024-2 6 season) 2025 Influenza Vaccine (#1) 2025 Abdominal [...] Procedure Name Priority Date/Time Associated Diagnosis Comments COMPREHENSIVE METABOLIC PANEL Routine 07/20/2025 6:15 AM EST Sepsis, unspecified organism (CMS/HCC V24, [facility] V28) Bacteremia COMPLETE BLOOD COUNT Routine 07/20/2025 6:15 AM EST Sepsis, unspecified organism (CMS/HCC V24, CMS/HCC V28) Bacteremia NON-GYNECOLOGIC CYTOLOGY Routine 2025 12:00 AM EDT Gross hematuria CULTURE URINE Routine 2025 12:00 AM EDT Urinary tract infection, site not specified Frequency of micturition from Last 3 Months Results * (ABNORMAL) Complete blood count (07/20/2025 6:15 AM EST) [facility] WBC 10.7 4.8 - 10.8 K/mcL LAB HEMETOLOGY METHOD 07/20/2025 10:49 AM [facility] RBC 5.20 4.50 - 5.50 M/mcL LAB HEMETOLOGY METHOD 07/20/2025 10:49 AM [facility] Hemoglobin 15.2 13.5 - 17.5 g/dL LAB HEMETOLOGY METHOD 07/20/2025 10:49 AM [facility] Hematocrit 45.4 42.0 - 54.0 % LAB HEMETOLOGY METHOD 07/20/2025 10:49 AM [facility] MCV 87.5 79.0 - 98.0 FL LAB HEMETOLOGY METHOD 07/20/2025 10:49 AM [facility] MCH 29.3 27.0 - 32.0 pcg LAB HEMETOLOGY METHOD 07/20/2025 10:49 AM [facility] MCHC 33.5 32.0 - 37.0 g/dL LAB HEMETOLOGY METHOD 07/20/2025 10:49 AM [facility] RDW 12.8 11.0 - 15.0 % LAB HEMETOLOGY METHOD 07/20/2025 10:49 AM [facility] Platelets 187 130 - 400 K/mcL LAB HEMETOLOGY METHOD 07/20/2025 10:49 AM [facility] MPV 11.5(H) 7.0 - 11.0 FL LAB HEMETOLOGY METHOD 07/20/2025 10:49 AM [facility] NRBC 0.0 <1.0 % LAB HEMETOLOGY METHOD 07/20/2025 10:49 AM [facility] NRBC Absolute 0.00 <0.10 K/mcL LAB HEMETOLOGY METHOD 07/20/2025 10:49 AM [facility] Blood Venous blood specimen / Unknown Venipuncture / Unknown 07/20/2025 6:15 AM EST 07/20/2025 9:52 AM EST us Tee Gonzalez MD LAB BLOOD ORDERABLES Final Result [facility] [address] [place] [address], [place] [phone] * (ABNORMAL) Comprehensive metabolic panel (07/20/2025 6:15 AM EST) Sodium 141 133 - 145 mmol/L 07/20/2025 1:26 PM [facility] Potassium 4.2 3.5 - 5.5 mmol/L 07/20/2025 1:26 PM [facility] Chloride 104 96 - 110 mmol/L 07/20/2025 1:26 PM [facility] CO2 25 21 - 32 mmol/L 07/20/2025 1:26 PM [facility] Anion Gap 12(H) 3 - 11 07/20/2025 1:26 PM [facility] Glucose 93 70 - 100 mg/dL 07/20/2025 1:26 PM [facility] BUN 27(H) 5 - 25 mg/dL 07/20/2025 1:26 PM [facility] Creatinine 1.25 0.70 - 1.30 mg/dL 07/20/2025 1:26 PM [facility] eGFR 60 >=60 mL/min/1. 73m2 07/20/2025 1:26 PM [facility] Comment:Calculation based on the Chronic Kidney Disease Epidemiology Collaboration (CKD-EPI) equation refit without adjustment for race. BUN/Creatinine Ratio 21.6 07/20/2025 1:26 PM [facility] Calcium 8.7 8.5 - 10.5 mg/dL 07/20/2025 1:26 PM [facility] AST (SGOT) 33 10 - 42 unit/L 07/20/2025 1:26 PM [facility] ALT (SGPT) 38 10 - 60 unit/L 07/20/2025 1:26 PM [facility] Alkaline Phosphatase 118 42 - 121 unit/L 07/20/2025 1:26 PM [facility] Total Protein 6.1 6.0 - 8.0 g/dL 07/20/2025 1:26 PM [facility] Albumin 3.7 3.2 - 5.0 g/dL 07/20/2025 1:26 PM [facility] Total Bilirubin 0.3 0.0 - 1.4 mg/dL 07/20/2025 1:26 PM [facility] Blood Venous blood specimen / Unknown Venipuncture / Unknown 07/20/2025 6:15 AM EST 07/20/2025 9:52 AM EST Tee Gonzalez MD LAB BLOOD ORDERABLES Final Result [facility] [address] [place] [address], * Culture urine (2025 12:00 AM EDT) Culture, Urine <10,000 CFU/mL gram positive cocci, insignificant count, no further workup 05/19/2025 1:12 PM EDT [facility] Urine Urine specimen obtained by clean catch procedure / Unknown 2025 2025 6:09 PM EDT us Denisha SINCLAIR LAB MICROBIOLOGY - GENERAL ORD ERABLES Final Result [facility] [address] [place] [address], [place] [phone] * Non-gynecologic cytology (2025 12:00 AM EDT) Final Diagnosis Urine, Voided, [id number]: Negative for high grade urothelial carcinoma. Abundant acute inflammatory cells are present. Results of UroVysion fluorescence in situ hybridization (FISH) testing: Although FISH was performed, insufficient non-obscured hybridization signals are present for evaluation and interpretation. 06/09/2025 1:19 PM EDT [facility] at 1319 EDT Specimen A Adequacy Satisfactory for evaluation 06/09/2025 1:19 PM EDT [facility] Clinical Information Gross hematuria R31.0 Urine Cytology/FISH (now) 06/09/2025 1:19 PM EDT [facility] Gross Description A. Urine, Voided, [id number]: Received one ThinPrep slide for cytology and one ThinPrep slide for UroVysion FISH 06/09/2025 1:19 PM EDT [facility] Disclaimer Unless otherwise specified, all tissue is 10% NB formalin fixed and paraffin embedded. Technical pathology services provided by [facility] at [address], [place] [address] (CLIA #[id number]/Yulissa Muniz MD, Answering Service Telephone Operator) 06/09/2025 1:19 PM EDT [facility] Urine Urine specimen from urethra / Unknown 2025 06/06/2025 1:38 PM EDT Denisha SINCLAIR LAB CYTOLOGY ORDERABLES Final Result [facility] [address] [place] [address], from Last 3 Months Insurance [employer] MED[employer]ARE Care Teams Nail Feeder Relationship Specialty Start Date End Date Physician, Pcp Unknown PCP - General 05/18/25
--- OUTSIDE RECORDS SUMMARY | 2025-07-22 20:24 | XMS_ITS | Encounter Summary ---
Author Organization [facility] Address [address] [place] [address] Care Team Providers Care Wage And Hour Investigator Name Role Phone Physician, Pcp Unknown Primary Care Provider Faith vailable Encounter Details Date Type Department Care Team (Late st Contact Info) Description 07/22/2025 Lab Requisition [facility] - Main Lab [address] [facility] [address] [place] [address] Tee Gonzalez MD [address] [place] [address] Sepsis, unspecified organism (CMS/[facility] V24, CMS/[facility] V28); Bacteremia Social History Tobacco Use Types Packs/Day Years Used Date Smoking Tobacco: Never Assessed Sex and Gender Information Value Date Recorded Sex Assigned at Not on file Legal Sex Male 11:54 PM EST Gender Identity Not on file Sexual Orientation Not on file documented as of this encounter Plan of Treatment Scheduled Orders Name Type Priority Associated Diagnoses Orde r Schedule Basic metabolic panel Lab Routine Sepsis, unspecified organism (CMS/[facility] V24, CMS/[facility] V28) Bacteremia Ordered: 07/22/2025 Complete blood count Lab Routine Sepsis, unspecified organism (CMS/[facility] V24, CMS/[facility] V28) Bacteremia Ordered: 07/22/2025 documented as of this encounter Visit Diagnoses Diagnosis Sepsis, unspecified organism (CMS/[facility] V24, CMS/[facility] V28) Bacteremia documented in this encounter Care Teams Wage And Hour Investigator Relationship Specialty Start Date End Date Physician, Pcp Unknown PCP - General 05/18/25 documented as of this encounter
--- OUTSIDE RECORDS SUMMARY | 2025-07-22 20:24 | XMS_ITS | Encounter Summary ---
Author Organization [facility] Address [address] [place] [address] Care Team Providers Care Drilling Manager Name Role Phone Physician, Pcp Unknown Primary Care Provider Faith vailable Encounter Details Date Type Department Care Team (Late st Contact Info) Description 07/20/[address] [facility] - Main Lab [address] [facility] [place] [address] Tee Gonzalez MD [address] [place] [address] Sepsis, unspecified organism (CMS/[facility] V24, CMS/[facility] V28); Bacteremia Social History Tobacco Use Types [...] Procedure Name Priority Date/Time Associated Diagnosis Comments COMPLETE BLOOD COUNT Routine 07/20/2025 6:15 AM EST Sepsis, unspecified organism (CMS/HCC V24, [facility] V28) Bacteremia COMPREHENSIVE METABOLIC PANEL Routine 07/20/2025 6:15 AM EST Sepsis, unspecified organism (CMS/HCC V24, CMS/HCC V28) Bacteremia documented in this encounter Results * (ABNORMAL) Comprehensive metabolic panel (07/20/2025 6:15 AM EST) Sodium 141 133 - 145 mmol/L 07/20/2025 1:26 PM EST [facility] Potassium 4.2 3.5 - 5.5 mmol/L 07/20/2025 1:26 PM [facility] Chloride 104 96 - 110 mmol/L 07/20/2025 1:26 PM [facility] CO2 25 21 - 32 mmol/L 07/20/2025 1:26 PM [facility] Anion Gap 12(H) 3 - 11 07/20/2025 1:26 PM [facility] Glucose 93 70 - 100 mg/dL 07/20/2025 1:26 PM [facility] BUN 27(H) 5 - 25 mg/dL 07/20/2025 1:26 PM [facility] Creatinine 1.25 0.70 - 1.30 mg/dL 07/20/2025 1:26 PM [facility] eGFR 60 >=60 mL/min/1. 73m2 07/20/2025 1:26 PM [facility] Comment:Calculation based on the Chronic Kidney Disease Epidemiology Collaboration (CKD-EPI) equation refit without adjustment for race. BUN/Creatinine Ratio 21.6 07/20/2025 1:26 PM [facility] Calcium 8.7 8.5 - 10.5 mg/dL 07/20/2025 1:26 PM [facility] AST (SGOT) 33 10 - 42 unit/L 07/20/2025 1:26 PM [facility] ALT (SGPT) 38 10 - 60 unit/L 07/20/2025 1:26 PM [facility] Alkaline Phosphatase 118 42 - 121 unit/L 07/20/2025 1:26 PM [facility] Total Protein 6.1 6.0 - 8.0 g/dL 07/20/2025 1:26 PM [facility] Albumin 3.7 3.2 - 5.0 g/dL 07/20/2025 1:26 PM [facility] Total Bilirubin 0.3 0.0 - 1.4 mg/dL 07/20/2025 1:[address] [facility] Blood Venous blood specimen / Unknown Venipuncture / Unknown 07/20/2025 6:15 AM EST 07/20/2025 9:52 AM EST us Tee Gonzalez MD LAB BLOOD ORDERABLES Final Result [facility] [address] [place] [address], [place] [phone] * (ABNORMAL) Complete blood count (07/20/2025 6:15 AM EST) WBC 10.7 4.8 - 10.8 K/mcL LAB HEMETOLOGY METHOD 07/20/2025 10:49 AM [facility] RBC 5.20 4.50 - 5.50 M/mcL LAB HEMETOLOGY METHOD 07/20/2025 10:49 AM [facility] Hemoglobin 15.2 13.5 - 17.5 g/dL LAB HEMETOLOGY METHOD 07/20/2025 10:49 AM [facility] Hematocrit 45.4 42.0 - 54.0 % LAB HEMETOLOGY METHOD 07/20/2025 10:49 AM [facility] MCV 87.5 79.0 - 98.0 FL LAB HEMETOLOGY METHOD 07/20/2025 10:49 AM [facility] MCH 29.3 27.0 - 32.0 pcg LAB HEMETOLOGY METHOD 07/20/2025 10:49 AM [facility] MCHC 33.5 32.0 - 37.0 g/dL LAB HEMETOLOGY METHOD 07/20/2025 10:49 AM [facility] RDW 12.8 11.0 - 15.0 % LAB HEMETOLOGY METHOD 07/20/2025 10:[address] [facility] Platelets 187 130 - 400 K/mcL LAB HEMETOLOGY METHOD 07/20/2025 10:[address] [facility] MPV 11.5(H) 7.0 - 11.0 FL LAB HEMETOLOGY METHOD 07/20/2025 10:[address] [facility] NRBC 0.0 <1.0 % LAB HEMETOLOGY METHOD 07/20/2025 10:49 AM [facility] NRBC Absolute 0.00 <0.10 K/mcL LAB HEMETOLOGY METHOD 07/20/2025 10:49 AM [facility] Blood Venous blood specimen / Unknown Venipuncture / Unknown 07/20/2025 6:15 AM EST 07/20/2025 9:52 AM EST Tee Gonzalez MD LAB BLOOD ORDERABLES Final Result [facility] [address] [place] [address], documented in this encounter Visit Diagnoses Diagnosis Sepsis, unspecified organism (CMS/HCC V24, CMS/HCC V28) Bacteremia documented in this encounter Care Teams Drilling Manager Relationship Specialty Start Date End Date Physician, Pcp Unknown PCP - General 05/18/25 documented as of this encounter
--- OUTSIDE RECORDS SUMMARY | 2025-07-22 20:24 | XMS_ITS | Encounter Summary ---
Author Organization [facility] Address [address] [place] [address] Care Team Providers Care It Desktop Support Specialist Name Role Phone Physician, Pcp Unknown Primary Care Provider Faith vailable Encounter Details Date Type Department Care Team (Late st Contact Info) Description 2025 Lab Requisition [facility] - Main Lab [address] [facility] [place] [address] Denisha Blackmon PA [address] [place] [address] Urinary tract infection, site not specified; Frequency [...] no further workup 05/19/2025 1:12 PM EDT [facility] Urine Urine specimen obtained by clean catch procedure / Unknown 2025 2025 6:09 PM EDT us Denisha SINCLAIR LAB MICROBIOLOGY - GENERAL ORD ERABLES Final Result [facility] [address] [place] [address], documented in this encounter Visit Diagnoses Diagnosis Urinary tract infection, site not specified Frequency of micturition Urinary frequency documented in this encounter Care Teams It Desktop Support Specialist Relationship Specialty Start Date End Date Physician, Pcp Unknown PCP - General 05/18/25 documented as of this encounter
--- OUTSIDE RECORDS SUMMARY | 2025-07-22 20:24 | XMS_ITS | Patient Health Record ---
Author Organization [facility] Address [address] [place] [address] Care Team Providers Care Contract Officer Name Role Phone Jackeline Garcia MD Primary Care Provider Chaz Meek Unavailable [phone] Allergies Allergen (clinical drug ingredient) Drug/Non Drug [...] Date Coverage End Date [employer] Medicare [id number] [address] [address] [place] [address] [id number] Kenan Castañeda Self - patient is the insured Medical (General) History Medical History History ICD Code Benign prostatic hyperplasia (BPH) chronic bronchitis CAD ( Coronary Artery Disease) COPD Gastroesophageal reflux disease (GERD) Hypertension Hyperglycemia Hyperlipidemia Impaired Fasting Glucose Lumbargo Obesity Surgical History Surgery Date(Month/Year)
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
[2025-07-22 22:42] VITALS: BP 166/79; PULSE 77; RESP 16; TEMP 36.7; O2SAT 93
[2025-07-22 23:26] VITALS: BP 166/79; PULSE 77; RESP 16; TEMP 36.7; O2SAT 93
== END 2025-07-22 23:27 | disposition skilled nursing facility (03) ==
PROVIDERS: Emergency Provider Emergency Medicine Emergency Medical Services; PCP Internal Medicine
DX: R45.851 Suicidal ideations (principal); Z73.3 Stress, not elsewhere classified; I10 Essential (primary) hypertension; G47.33 Obstructive sleep apnea (adult) (pediatric); Z99.89 Dependence on other enabling machines and devices; E78.5 Hyperlipidemia, unspecified; K21.9 Gastro-esophageal reflux disease without esophagitis
CPT/HCPCS: 99284

== ENCOUNTER → 2025-08-08 07:49 | Outpatient (BNVA) | payer MEDICARE, SELFPAY | PROVIDERS: PCP Internal Medicine; Visit Provider Urology | DX: R33.9 Retention of urine, unspecified (principal); N39.0 Urinary tract infection, site not specified | CPT/HCPCS: 51700; 51798 ==